=== PATIENT | female | born 1950 | race Caucasian/White ===

== ENCOUNTER → 2021-02-08 | Outpatient (CLI) | payer MEDICARE, OTHER ==
[~2021-02-08] MED LIST: GADOBUTROL 10 MMOL/10 ML (GADAVIST) VIAL IV ONE
--- NOTE | 2021-02-08 12:16 | Diagnostic Imaging Report ---
PROCEDURE: MR imaging of the brain with and without contrast. TECHNIQUE: Multiplanar, multisequence MR imaging of the brain was performed with and without contrast. INDICATION: Multiple falls and off-balance. No prior studies are available for comparison. Ventricles and sulci are appropriate for the patient's age. There are numerous periventricular and subcortical white matter foci consistent with chronic microvascular ischemia. The normal expected flow-voids within the carotid siphons are seen. There is no diffusion restriction identified to suggest acute ischemia. No acute intra-axial or extra-axial hemorrhage is detected. No abnormal enhancement is identified following contrast administration. The cerebellopontine angles are normal. No CP angle mass is identified. The corpus callosum is unremarkable. The sella and parasellar structures are unremarkable. IMPRESSION: Changes of chronic microvascular ischemia. The study is otherwise unremarkable. Dictated by: Dictated on workstation # [id number]
== END ==
LOC: RAD 11:00
PROVIDERS: ATTEND Otolaryngology Otolaryngology/Facial Plastic Surgery
DX: I67.82 Cerebral ischemia (principal); R29.6 Repeated falls
CPT/HCPCS: 70553

== ENCOUNTER 2021-02-14 11:56 | Emergency (ER) | payer MEDICARE, OTHER ==
[~2021-02-14] VITALS: Ht 170 cm; Wt 104.0 kg
[2021-02-14 12:18] LABS: BASOPHILS % (AUTO) 1 % (0-10); EOSINOPHILS # (AUTO) 0.1 10^3/uL (0.0-0.3); EOSINOPHILS % (AUTO) 1 % (0-10); HEMATOCRIT 45 % (35-52); HEMOGLOBIN 14.5 g/dL (11.5-16.0); LYMPHOCYTES # (AUTO) 2.2 10^3/uL (1.0-4.0); LYMPHOCYTES % (AUTO) 28 % (12-44); MEAN CORPUSCULAR HEMOGLOBIN 28 pg (25-34); MEAN CORPUSCULAR HGB CONC 32 g/dL (32-36); MEAN CORPUSCULAR VOLUME 88 fL (80-99); MEAN PLATELET VOLUME 9.3 fL (9.0-12.2); MONOCYTES # (AUTO) 0.6 10^3/uL (0.0-1.0); MONOCYTES % (AUTO) 8 % (0-12); NEUTROPHILS # (AUTO) 4.8 10^3/uL (1.8-7.8); NEUTROPHILS % (AUTO) 62 % (42-75); PLATELET COUNT 334 10^3/uL (130-400); WHITE BLOOD COUNT 7.8 10^3/uL (4.3-11.0)
--- NOTE | 2021-02-14 12:22 | ED Neurological Problem ---
General Stated Complaint: STROKE Source: patient Exam Limitations: no limitations (NITIN HAWKINS APRN) History of Present Illness Date Seen by Provider: Feb 14, 2021 Time Seen by Provider: 12:21 Initial Comments To ER by [facility] from home with reports of slurred speech and right- sided weakness. arrived to report that about 2 days ago on 02/12/2021 she was laying on the floor playing with her dogs when she seemed to be behaving strangely. Later that evening he noticed her speech to be slurred. She told him to leave her alone. The next day she spent most of the day sleeping on the couch. She arrives today with right-sided weakness and ongoing slurred speech. Was formerly on anticoagulants but is not any longer and cannot recall why she was on them. Timing/Duration: other (48 hours) Severity: moderate Associated Symptoms: denies symptoms (NITIN HAWKINS APRN) Allergies and Home Medications Allergies Coded Allergies: hydrocodone (Unverified Allergy, Unknown, 06/22/14) Patient Home Medication List Home Medication List Reviewed: Yes (NITIN HAWKINS APRN) Review of Systems Review of Systems Constitutional: see HPI; No chills, No fever Eyes: No Symptoms Reported Ears, Nose, Mouth, Throat: no symptoms reported Respiratory: no symptoms reported Cardiovascular: no symptoms reported Genitourinary: no symptoms reported Musculoskeletal: no symptoms reported Skin: no symptoms reported Psychiatric/Neurological: No Symptoms Reported Endocrine: No Symptoms Reported Hematologic/Lymphatic: No Symptoms Reported (NITIN HAWKINS APRN) Physical Exam Vital Signs Vital Signs - First Documented 02/14/21 11:58 Temp 36.6 Pulse 84 Resp 20 B/P (MAP) 142/91 (108) Pulse Ox 93 O2 Delivery Room Air (PARAS BOJORQUEZ MD) Vital Signs Capillary Refill : (NITIN HAWKINS APRN) Height, Weight, BMI Height: '66.00" Weight: 236lbs. oz. 107.103471fl; BMI Method: General Appearance: WD/WN, no apparent distress HEENT: PERRL/EOMI, normal ENT inspection Respiratory: no respiratory distress, no accessory muscle use Cardiovascular: regular rate, rhythm, no murmur Gastrointestinal: normal bowel sounds, non tender, soft Extremities: normal range of motion, non-tender Neurologic/Psychiatric: alert, normal mood/affect, oriented x 3 Cra[place] Nerves: normal hearing, normal speech, PERRL Coordination/Gait: ABN nose to finger (R) Motor/Sensory: pronator drift (R), sensory deficit, weak motor strength RUE, weak motor strength RLE Skin: normal color, warm/dry (NITIN HAWKINS APRN) Stroke Onset of Symptoms Date of Onset of Symptoms: Feb 12, 2021 Onset of Symptoms: Yes Symptoms onset unknown: No (NITIN HAWKINS APRN) NIH Stroke Scale Assessment Select: Initial Level of Consciousness: 0=Alert (0), Level of Consciousness- Questions: 1=Answers one question (1), LOC Commands: 0=Performs both tasks (0), Gaze: Normal (0), Visual Pardo: 0=No visual loss (0), Facial Movement (Facial Paresis): 1=Minor paralysis (1), Motor Function-Arms Right: 1=Drift (1), Motor Function-Arms Left: 0=No drift (0), Motor Function-Legs Right: 1=Drift (1), Motor Function-Legs Left: 0=No drift (0), Limb Ataxia: 2=Present in two limbs (2), Sensory: 1=Mild to Moderate loss (1), Best Language: 1=Mild to moderat aphasia (1), Dysarthria: 1=Mild to moderate loss (1), Extinction & Inattention: 0=No abnormality (0), Total: 9 Stroke Thrombolytic Exclusion Age 18 or Over: Yes Acute intenal hemorrhage: No History of CVA: No Uncontrolled Coagulation Defec: No Intracranial Hemorrhage: No Severe Hypertension: No GI or Bleed: No Subarachnoid Hemorrhage: No Intracranial Neoplasm/Aneurysm: No Oral Anticoagulants: No Surgery or Trauma: No Puncture of Non-Compressible V: No Recent CPR: No Diabetic Hemorrhagic Retinopat: No Organ Biopsy: No Recent Obstetric Delivery: No Glucose: No Significant Hepatic Dysfunctio: No NIH Stoke Scale >22: No Bacterial Endocarditis: No Pericarditis: No Improving Symptoms: No Platelets: No TPA Contraindication: Yes (NITIN HAWKINS APRN) IV - TPa Received IV - TPa Procedure Performed?: No (NITIN HAWKINS APRN) Progress/Results/Core Measures Results/Orders Lab Results Laboratory Tests Test 02/14/21 12:06 02/14/21 12:15 Range/Units White Blood Count 7.8 4.3-11.0 10^3/uL Red Blood Count 5.10 3.80-5.11 10^6/uL Hemoglobin 14.5 11.5-16.0 g/dL Hematocrit 45 35-52 % Mean Corpuscular Volume 88 80-99 fL Mean Corpuscular Hemoglobin 28 25-34 pg Mean Corpuscular Hemoglobin Concent 32 32-36 g/dL Red Cell Distribution Width 12.6 10.0-14.5 % Platelet Count 334 130-400 10^3/uL Mean Platelet Volume 9.3 9.0-12.2 fL Immature Granulocyte % (Auto) 0 % Neutrophils (%) (Auto) 62 42-75 % Lymphocytes (%) (Auto) 28 12-44 % Monocytes (%) (Auto) 8 0-12 % Eosinophils (%) (Auto) 1 0-10 % Basophils (%) (Auto) 1 0-10 % Neutrophils # (Auto) 4.8 1.8-7.8 10^3/uL Lymphocytes # (Auto) 2.2 1.0-4.0 10^3/uL Monocytes # (Auto) 0.6 0.0-1.0 10^3/uL Eosinophils # (Auto) 0.1 0.0-0.3 10^3/uL Basophils # (Auto) 0.0 0.0-0.1 10^3/uL Immature Granulocyte # (Auto) 0.0 0.0-0.1 10^3/uL Prothrombin Time 13.4 12.2-14.7 SEC INR Comment 1.0 0.8-1.4 Activated Partial Thromboplast Time 21 L 24-35 SEC D-Dimer <= 0.27 0.00-0.49 UG/ML Sodium Level 141 135-145 MMOL/L Potassium Level 4.1 3.6-5.0 MMOL/L Chloride Level 101 98-107 MMOL/L Carbon Dioxide Level 22 21-32 MMOL/L Anion Gap 18 H 5-14 MMOL/L Blood Urea Nitrogen 19 H 7-18 MG/DL Creatinine 0.72 0.60-1.30 MG/DL Estimat Glomerular Filtration Rate 81 BUN/Creatinine Ratio 26 Glucose Level 90 70-105 MG/DL Calcium Level 9.6 8.5-10.1 MG/DL Corrected Calcium 9.3 8.5-10.1 MG/DL Total Bilirubin 0.7 0.1-1.0 MG/DL Aspartate Amino Transf (AST/SGOT) 32 5-34 U/L Alanine Aminotransferase (ALT/SGPT) 26 0-55 U/L Alkaline Phosphatase 80 40-136 U/L Troponin I < 0.028 <0.028 NG/ML Total Protein 8.1 6.4-8.2 GM/DL Albumin 4.4 3.2-4.5 GM/DL Urine Color YELLOW Urine Clarity CLOUDY Urine pH 6.0 5-9 Urine Specific [place] >=1.030 1.016-1.022 Urine Protein TRACE H NEGATIVE Urine Glucose (UA) NEGATIVE NEGATIVE Urine Ketones 3+ H NEGATIVE Urine Nitrite NEGATIVE NEGATIVE Urine Bilirubin 2+ H NEGATIVE Urine Urobilinogen 1.0 < = 1.0 MG/DL Urine Leukocyte Esterase NEGATIVE NEGATIVE Urine RBC (Auto) NEGATIVE NEGATIVE Urine RBC 0 /HPF Urine WBC 2-5 /HPF Urine Squamous Epithelial Cells 5-10 /HPF Urine Crystals NONE /LPF Urine Bacteria LARGE H /HPF Urine Casts NONE /LPF Urine Mucus LARGE H /LPF Urine Culture Indicated YES (PARAS BOJORQUEZ MD) Vital Signs/I&O 02/14/21 02/14/21 11:58 16:05 Temp 36.6 Pulse 84 87 Resp 20 18 B/P (MAP) 142/91 (108) 156/94 Pulse Ox 93 99 O2 Delivery Room Air (PARAS BOJORQUEZ MD) Diagnostic Imaging Diagonstic Imaging: CT Comments NAME: COMBSMADAIJosé Manuel Georges MED REC#: [id number] PT STATUS: REG ER : 1950 PHYSICIAN: NITIN HAWKINS APRN ADMIT DATE: 02/14/21/ER Draft Date of Exam:02/14/21 CT ANGIO HEAD/NECK PROCEDURE: CT angiography of the head and CT angiography of the neck with and without contrast. TECHNIQUE: Contiguous noncontrast images were obtained from the skull base through the vertex. After intravenous contrast administration, helical CT angiography of the neck was performed. Source data was reformatted into 3D MIP projections. Delayed post contrast acquisition was also obtained. Auto Exposure Controls were utilized during the CT exam to meet ALARA standards for radiation dose reduction. INDICATION: Stroke. Right-sided neurologic deficit. COMPARISON: Noncontrast head CT performed earlier today. MRI brain without and with IV contrast 02/08/2021. FINDINGS: Postcontrast imaging again demonstrates low-attenuation changes in the left frontal lobe. No abnormal intracranial enhancement. No CT evidence of large intracranial hemorrhage or extra-axial fluid collection. No hydrocephalus. CTA demonstrates a left common carotid originating from the innominate. Calcified atherosclerotic disease results in 90-99% narrowing of the left internal carotid artery origin. There is intermittent contrast seen within the more distal internal carotid artery which near completely ceases at the level of the skull base. The left internal carotid artery appears completely occluded within the distal petrous and proximal cavernous segments. There is complete occlusion of the left M1 segment. There is incomplete reconstitution of a couple of the M2 branches via the ophthalmic artery. The basilar, bilateral vertebral, common carotid, right internal carotid, right middle cerebral, bilateral anterior cerebral and posterior cerebral arteries demonstrate no high-grade stenosis, aneurysm, or dissection. The dural venous sinuses are normally opacified. Moderate spondylotic changes in the cervical spine. No acute osseous findings. Paranasal sinuses and mastoids are unremarkable. Visualized paravertebral soft tissues demonstrate no acute findings. The lung apices are clear. IMPRESSION: 1. Large vessel occlusion of the left M1 middle cerebral artery. There is incomplete reconstitution distally of at least one of the M2 branches via the ophthalmic artery. 2. Large vessel occlusion of the left internal carotid petrous and cavernous segments. There is 90-99% narrowing of the left internal carotid artery origin to the level of the skull base. 3. Again noted are the low-attenuation changes consistent with the subacute infarct in the anterior left MCA distribution. 4. No other high-grade stenosis, aneurysm, or dissection involving the major arteries in the head and neck. Findings reported to Nitin Hawkins APRN at 2:05 p.m. on 02/14/2021. Dictated on workstation # [id number] Dict: 02/14/21 1353 Trans: 02/14/21 1413 [id number] Interpreted by: AMERICO ROY MD Electronically signed by: NAME: LAURYNIAN Georges [facility] REC#: [id number] PT STATUS: REG ER : 1950 PHYSICIAN: NITIN HAWKINS APRN ADMIT DATE: 02/14/21/ER Draft Date of Exam:02/14/21 CT HEAD WO-R/O STROKE PROCEDURE: CT head wo r/o stroke. TECHNIQUE: Multiple contiguous axial images were obtained through the brain without the use of intravenous contrast. Auto Exposure Controls were utilized during the CT exam to meet ALARA standards for radiation dose reduction. INDICATION: Weakness There is an area of decreased density in the left middle cerebral artery vascular territory involving portions of the temporal and parietal lobe including insular cortex. There is no hemorrhage. There are no extra-axial fluid collections. IMPRESSION: Subacute bland infarct left middle cerebral artery vascular territory. This appears to be new since MRI done on 02/08/2021. Results were called to Emergency Room at 1:05 PM Dictated on workstation # [id number] Dict: 02/14/21 1251 Trans: 02/14/21 1307 [facility] [id number] Interpreted by: DI BEGUM MD Electronically signed by: (NITIN HAWKINS APRN) Departure Communication (Admissions) Family Conversation [id number] with Dr. Sanford at the [facility] she would like a CT perfusion study and then plan to fly the patient to her. blood pressure is fine at 139/78 and that is without intervention here. She does not know her medication list so I called Abelardo gilbert in [facility] where she fills medications. That list includes: BuSpar 5 mg Fluoxetine 40 mg Losartan/HCTZ 100/12.5 mg Protonix 40 mg Norvasc 10 mg. EKG shows sinus rhythm no ectopy normal intervals (NITIN HAWKINS APRN) Impression Primary Impression: CVA (cerebral vascular accident) Disposition: ADMITTED INPATIENT Condition: Stable Admissions Decision to Admit Reason: Admit from ER (General) Decision to Admit/Date: Feb 14, 2021 Time/Decision to Admit Time: 13:45 (NITIN HAWKINS APRN) Departure-Patient Inst. Decision time for Depature: 13:15 (NITIN HAWKINS APRN) Referrals: ABDIAS FIGUEROA MD (Family) Primary Care Physician ATTENDING PHYSICIAN NOTE: I was physically present as attending physician in the emergency department during the care of this patient. I was involved in the initial assessment of the patient and interviewed the . He revealed at that time the symptoms actually started 2 days prior with facial droop and slurred speech, but patient refused to come to the emergency room. Stroke work-up was pursued and plan was executed as above. (PARAS BOJORQUEZ MD) Copy Copies To 1: ABDIAS FIGUEROA MD, PETER J APRN Feb 14, 2021 12:22 PARAS BOJORQUEZ MD Feb 14, 2021 22:40
[2021-02-14 12:23] LABS: ALBUMIN 4.4 GM/DL (3.2-4.5); CHLORIDE 101 MMOL/L (98-107); POTASSIUM 4.1 MMOL/L (3.6-5.0); SODIUM 141 MMOL/L (135-145)
[2021-02-14 12:23] LABS: CLARITY,URINE CLOUDY; COLOR,URINE YELLOW; GLUCOSE, URINE (UA) NEGATIVE (NEGATIVE); KETONES,URINE 3+ (NEGATIVE); LEUKOCYTE ESTERASE ,URINE NEGATIVE (NEGATIVE); NITRITE,URINE NEGATIVE (NEGATIVE); PROTEIN,URINE TRACE (NEGATIVE)
[2021-02-14 12:24] LABS: CALCIUM 9.6 MG/DL (8.5-10.1)
[2021-02-14 12:25] LABS: GLUCOSE 90 MG/DL (70-105); TOTAL PROTEIN 8.1 GM/DL (6.4-8.2)
[2021-02-14 12:26] LABS: CARBON DIOXIDE 22 MMOL/L (21-32)
[2021-02-14 12:27] LABS: BILIRUBIN,TOTAL 0.7 MG/DL (0.1-1.0)
[2021-02-14 12:29] LABS: ALKALINE PHOSPHATASE 80 U/L (40-136); CREATININE SERUM 0.72 MG/DL (0.60-1.30); FIBRIN DEGRADATION PRODUCTS <= 0.27 UG/ML (0.00-0.49); GFR ESTIMATED 81; PARTIAL THROMBOPLASTIN TIME 21 SEC (24-35); PROTHROMBIN TIME PATIENT 13.4 SEC (12.2-14.7)
[2021-02-14 12:30] LABS: BUN/CREATININE RATIO 26
[2021-02-14 12:32] LABS: ALANINE AMINOTRANSFERASE 26 U/L (0-55)
--- NOTE | 2021-02-14 12:35 | Diagnostic Imaging Report ---
INDICATION: Stroke. TIME OF EXAM: 12:27 p.m. Comparison is made with prior chest from 05/26/2014. Right hemidiaphragm is chronically elevated. There appears to be some atelectasis in the right base. Otherwise the lungs are clear. There is no effusion or pneumothorax. The heart size is normal. IMPRESSION: Right hemidiaphragmatic elevation with right basilar subsegmental atelectasis. Dictated by: Dictated on workstation # [id number]
[2021-02-14 12:51] LABS: BACTERIA,URINE LARGE /HPF; RBC,URINE 0 /HPF
[2021-02-14] MEDS ORDERED: HOLD METFORMIN - RECEIVED CONTRAST 20 ML VIAL IV SCH ×3 (13:00→15:15)
[2021-02-14] MEDS ORDERED: IOHEXOL 350 MG/ML 100 ML (OMNIPAQUE 350) VIAL IV ONE ×3 (13:00→15:15)
[2021-02-14] MEDS ORDERED: NS 100 ML (IVPB) BAG IV ONE ×3 (13:00→15:15)
--- NOTE | 2021-02-14 13:08 | Diagnostic Imaging Report ---
PROCEDURE: CT head wo r/o stroke. TECHNIQUE: Multiple contiguous axial images were obtained through the brain without the use of intravenous contrast. Auto Exposure Controls were utilized during the CT exam to meet ALARA standards for radiation dose reduction. INDICATION: Weakness There is an area of decreased density in the left middle cerebral artery vascular territory involving portions of the temporal and parietal lobe including insular cortex. There is no hemorrhage. There are no extra-axial fluid collections. IMPRESSION: Subacute bland infarct left middle cerebral artery vascular territory. This appears to be new since MRI done on 02/08/2021. Results were called to Emergency Room at 1:05 PM Dictated by: Dictated on workstation # [id number]
[2021-02-14 13:42] LABS: BILIRUBIN,URINE 2+ (NEGATIVE)
--- NOTE | 2021-02-14 14:13 | Diagnostic Imaging Report ---
PROCEDURE: CT angiography of the head and CT angiography of the neck with and without contrast. TECHNIQUE: Contiguous noncontrast images were obtained from the skull base through the vertex. After intravenous contrast administration, helical CT angiography of the neck was performed. Source data was reformatted into 3D MIP projections. Delayed post contrast acquisition was also obtained. Auto Exposure Controls were utilized during the CT exam to meet ALARA standards for radiation dose reduction. INDICATION: Stroke. Right-sided neurologic deficit. COMPARISON: Noncontrast head CT performed earlier today. MRI brain without and with IV contrast 02/08/2021. FINDINGS: Postcontrast imaging again demonstrates low-attenuation changes in the left frontal lobe. No abnormal intracranial enhancement. No CT evidence of large intracranial hemorrhage or extra-axial fluid collection. No hydrocephalus. CTA demonstrates a left common carotid originating from the innominate. Calcified atherosclerotic disease results in 90-99% narrowing of the left internal carotid artery origin. There is intermittent contrast seen within the more distal internal carotid artery which near completely ceases at the level of the skull base. The left internal carotid artery appears completely occluded within the distal petrous and proximal cavernous segments. There is complete occlusion of the left M1 segment. There is incomplete reconstitution of a couple of the M2 branches via the ophthalmic artery. The basilar, bilateral vertebral, common carotid, right internal carotid, right middle cerebral, bilateral anterior cerebral and posterior cerebral arteries demonstrate no high-grade stenosis, aneurysm, or dissection. The dural venous sinuses are normally opacified. Moderate spondylotic changes in the cervical spine. No acute osseous findings. Paranasal sinuses and mastoids are unremarkable. Visualized paravertebral soft tissues demonstrate no acute findings. The lung apices are clear. IMPRESSION: 1. Large vessel occlusion of the left M1 middle cerebral artery. There is incomplete reconstitution distally of at least one of the M2 branches via the ophthalmic artery. 2. Large vessel occlusion of the left internal carotid petrous and cavernous segments. There is 90-99% narrowing of the left internal carotid artery origin to the level of the skull base. 3. Again noted are the low-attenuation changes consistent with the subacute infarct in the anterior left MCA distribution. 4. No other high-grade stenosis, aneurysm, or dissection involving the major arteries in the head and neck. Findings reported to Ricky Hawkins APRN at 2:05 p.m. on 02/14/2021. Dictated by: Dictated on workstation # [id number]
[2021-02-14] MEDS ORDERED: LACTATED RINGERS 1,000 ML IV SCH (15:00)
--- NOTE | 2021-02-14 15:25 | Diagnostic Imaging Report ---
EXAM: CT head perfusion w/ contrast INDICATION: STROKE. COMPARISON: CT head and CTA head and neck performed earlier today. FINDINGS: Examination is limited by both marked motion and cytotoxic edema seen on the precontrast CT within the anterior left MCA distribution. There is an adequate peak arterial inflow. CT perfusion demonstrates a T-Max greater than 6 seconds measuring 52 mL within the anterior left middle cerebral artery distribution. Although the cerebral blood flow is less than 30% it is measured to be 0 mL, this is likely underestimated due to the cytotoxic edema in the region. IMPRESSION: 1. Limited examination as above. 2. A penumbra measured to be 52 mL in the left anterior middle cerebellar artery distribution is likely overestimated as above. Findings discussed with Ricky Hawkins APRN at 2:10 PM on 05/26/2021. Dictated by: Dictated on workstation # [id number]
[2021-02-14 16:05] VITALS: BP 156/94
== END 2021-02-14 16:05 | disposition other institution (70) ==
LOC: EDUNIT# 11:56 → ER 11:57
DX: I63.9 Cerebral infarction, unspecified (principal)
CPT/HCPCS: 0042T; 51702; 70450; 70496; 70498; 71045; 80053; 81000; 84484; 85025; 85379; 85610; 85730; 87077; 87088; 93005; 93041; 99285; 36415

== ENCOUNTER 2021-02-20 10:40 | Inpatient (IN) | payer MEDICARE, OTHER ==
[~2021-02-20] VITALS: Ht 167.7 cm; Wt 98.3 kg
[~2021-02-20 10:40] MED LIST changes: +ALPRAZolam 0.25 MG (XANAX) TAB PO PRN; +BISACODYL 10 MG SUPP (DULCOLAX) PR PRN; +CALCIUM CARBONATE 500 MG (TUMS) TAB.CHEW PO PRN; +DOCUSATE SODIUM 100 MG (COLACE) CAP PO PRN; +FLEET ENEMA ADULT 1 EA BTL PR PRN; -GADOBUTROL 10 MMOL/10 ML (GADAVIST) VIAL IV ONE; +LACTULOSE SYRUP 10GM/15ML (ENULOSE) 30ML UDC PO PRN; +LOPERAMIDE 2 MG (IMODIUM) TABLET PO PRN; +NALOXONE 0.4 MG/ML 1 ML (NARCAN) VIAL IV PRN; +ONDANSETRON 4 MG (ZOFRAN) ORAL DISSOLVE TAB PO PRN; +diphenhydrAMINE 25 MG TAB (BENADRYL) PO PRN; +guaiFENesin/CODEINE (ROBITUSSIN AC) 10ML UDC PO PRN
[2021-02-20 11:03] VITALS: BP 178/75
--- NOTE | 2021-02-20 11:06 | PM&R Post Admission Assessment ---
PM&R HP Date of Visit: Feb 20, 2021 Time of Visit: 11:15 History of Present Illness CC: CVA HPI: This is a 70yoWF clinic Pt of Dr. 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 She lives with her spouse and it is hard to get details due to the aphasia. CC: Rehabilitation post L MCA Stroke HPI: 70yo F with PMH of Afib and HTN presents post L MCA stroke for rehabilitation to [facility] where she was reportedly independent with ADLs and functionally mobile without an AD. Symptoms began on 02/12/21 when pt developed slurred speech and then on 02/14 her right arm/leg started to drift. Taken to [facility], Head CT showed subacute stroke. NIHSS 9, No tPA. CTA showed left M1 LVO and L ICA occlusion. Repeat CTA in 3 months to recheck ICA flow and stenosis. IR contraindicated due to anatomy. Then transfered to [facility], ECHO revealed 75% EF, no major shunting, normal LA size. Pt was given SHANK PAPERER amlodipine and Losartan, while holding all other SHANK PAPERER anti-hypertensives. Permissive HTN 110-160 systolic. AUTOMATIC BEAM WARPER TENDER video swallowed on 02/19 revealed oropharyngeal dysphagia and needs possible GI consult for esophageal dysphagia. Pt was placed on regular diet with nectar thick liquids and may need IV fluids if unable to PO. Pt was sent to [facility], for intensive PT/OT/AUTOMATIC BEAM WARPER TENDER, nutritional support, and continued physician monitoring until it's deemed safe to return home. 02/20, pt seemed noncompliant with history taking possibly due to aphasia. Denied fever, vomiting, diarrhea, or chest pain. On exam, right facial droop with profound right sided muscle weakness and decreased sensation. Will begin recovery process with PT/OT/AUTOMATIC BEAM WARPER TENDER and monitor progress/labs over the course of rehab. PMH: Afib, HTN PSH: None Allergy: Clindamycin Hcl, Codeine Sulfate, Hydrocodone Meds: Pantoprazole Sodium 40 Mg Tablet.dr 40 Mg PO BID Buspirone HCl 5 Mg Tablet 5 Mg PO BID Tylenol (Acetaminophen) 325 Mg Tablet 650 Mg PO Q4H PRN Clopidogrel (Clopidogrel Bisulfate) 75 Mg Tablet 75 Mg PO DAILY Sertraline HCl 100 Mg Tablet 100 Mg PO DAILY Senna-S Tablet (Sennosides/Docusate Sodium) 1 Each Tablet 1 Each PO BID Atorvastatin Calcium 80 Mg Tablet 80 Mg PO DAILY Aspirin 81 Mg Tab.chew 81 Mg PO DAILY TAKE WITH FOOD SH: Denies Alcohol and Tobacco Retired from working at a [employer] company with her in [place], [place] FH: Mom (None); Dad (None) ROS: Constitutional: No chills, No dizziness, No fever; other (Pt seemed noncompliant with questions) EENTM: other (Pt seemed noncompliant with questions); No ear pain, No blurred vision Respiratory: No cough, No hemoptysis, No short of breath, No wheezing; other (Pt seemed noncompliant with questions) Cardiovascular: No chest pain, No edema, No palpitations; other (Pt seemed noncompliant with questions) Gastrointestinal: No abdominal pain, No constipation, No diarrhea, No loss of appetite, No nausea, No vomiting; other (Pt seemed noncompliant with questions) Genitourinary: No dysuria, No frequency, No incontinence; other (Pt seemed noncompliant with questions) Musculoskeletal: No back pain, No muscle pain, No neck pain; other (Pt seemed noncompliant with questions) Skin: No change in color, No lesions, No rash; other (Pt seemed noncompliant with questions) Psychiatric/Neurological: Denies Headache, Denies Numbness, Denies Tingling; Other (Pt seemed noncompliant with questions) Exam: General Appearance: No Apparent Distress, Obese Eyes: Right Eye Abnormal EOM; Bilateral Eye Normal Inspection, Bilateral Eye EOMI HEENT: PERRL/EOMI, Pharynx Normal; No Photophobia, No Scleral Icterus (L), No Scleral Icterus (R) Neck: Normal Inspection, Non Tender, Supple; No Thyromegaly Respiratory: Chest Non Tender, Lungs Clear, Normal Breath Sounds Cardiovascular: Regular Rate, Rhythm, No Edema, Normal Peripheral Pulses Gastrointestinal: Normal Bowel Sounds, Non Tender, Soft; No Guarding Extremity: Normal Inspection; No Normal Range of Motion; Non Tender, No Calf Tenderness, No Pedal Edema Neurologic/Psychiatric: Alert, Oriented x3, Abnormal rail crew member II-XII (Tongue Deviates to Right (Hypoglossal CNXII)), Aphasia, Facial Droop (R Sided), Motor Weakness (R Sided), Sensory Deficit Skin: Warm/Dry, Cyanosis (L UE); No Erythema, No Rash Labs/Imaging: Vital Signs 02/20/21 11:03 Temp 37.2 Pulse 91 Resp 18 B/P (MAP) 178/75 (109) Pulse Ox 96 O2 Delivery Room Air Assessment: S/P L MCA Stroke Right Hemiparesis Dysarthria Expressive Aphasia Oropharyngeal Dysphagia Hyperlipidemia HTN Emotionally Labile Plan: PT/OT IV/PO Fluids PRN Speech Therapy/AUTOMATIC BEAM WARPER TENDER Advice Line Rn Nutritional Services (regular diet with thick nectar liquid) Continued Atorvastatin for HLD CBC/CMP Coag Studies CARRIE STERLING Feb 20, 2021 11:23 Past Puvmyod-Cwoyzm-Opyxrj Hx Past Med/Social Hx: Reviewed Nursing Past Med/Soc Hx, Reviewed and Corrections made Patient Social History Marrital Status: Employed/Student: retired Alcohol Use: Denies Use Smoking Status: Never a Smoker Past Medical History Cardiac: Atrial Fibrillation, High Cholesterol, Hypertension Neurological: Stroke PM&R Allergy/Meds/Data Review Allergies Coded Allergies: hydrocodone (Unverified Allergy, Unknown, 06/22/14) Home Medications Scheduled Aspirin (Aspirin), 81 MG PO DAILY, (Reported) Atorvastatin Calcium (Atorvastatin Calcium), 80 MG PO DAILY, (Reported) Buspirone HCl (Buspirone HCl), 5 MG PO BID, (Reported) Clopidogrel Bisulfate (Clopidogrel), 75 MG PO DAILY, (Reported) Pantoprazole Sodium (Pantoprazole Sodium), 40 MG PO BID, (Reported) Sennosides/Docusate Sodium (Senna-S Tablet), 1 EACH PO BID, (Reported) Sertraline HCl (Sertraline HCl), 100 MG PO DAILY, (Reported) Scheduled PRN Acetaminophen (Tylenol), 650 MG PO Q4H PRN for PAIN-MILD (1-4), (Reported) Current Medications Current Medications Reviewed Review of Systems Constitutional: see HPI, malaise, weakness EENTM: no symptoms reported Respiratory: no symptoms reported Cardiovascular: no symptoms reported Gastrointestinal: constipation Genitourinary: no symptoms reported Musculoskeletal: back pain, joint pain Skin: no symptoms reported Psychiatric/Neurological: Depressed, Paresthesia, Weakness All Other Systems Reviewed Negative Unless Noted: Yes Physical Exam Physical Exam Vital Signs Vital Signs - First Documented 02/20/21 11:03 Temp 37.2 Pulse 91 Resp 18 B/P (MAP) 178/75 (109) Pulse Ox 96 O2 Delivery Room Air Capillary Refill : Height, Weight, BMI Height: '66.00" Weight: 236lbs. oz. 107.808368jd; 35.00 BMI Method: General Appearance: No Apparent Distress, WD/WN, Chronically ill, Obese Eyes: Bilateral Eye Normal Inspection, Bilateral Eye PERRL HEENT: PERRL/EOMI, Normal ENT Inspection, Pharynx Normal Neck: Full Range of Motion, Normal Inspection, Non Tender, Supple, Carotid Bruit Respiratory: Chest Non Tender, Lungs Clear, Normal Breath Sounds, No Accessory Muscle Use, No Respiratory Distress Cardiovascular: Regular Rate, Rhythm, No Edema, No Gallop, No JVD, No Murmur, Normal Peripheral Pulses Gastrointestinal: Normal Bowel Sounds, No Organomegaly, No Pulsatile Mass, Non Tender, Soft Back: Normal Inspection, No CVA Tenderness, No Vertebral Tenderness Extremity: Normal Capillary Refill, Normal Inspection, Normal Range of Motion, Non Tender, No Calf Tenderness, No Pedal Edema Neurologic/Psychiatric: Alert, Oriented x3, Abnormal Gait, Depressed Affect, Facial Droop (Right), Motor Weakness (Right-sided weakness 1/5) Skin: Normal Color, Warm/Dry Lymphatic: No Adenopathy PM&R Medical Assessment & Plan REHAB/MEDICAL ASSESSMENT AND PLAN: REHAB IMPAIRMENT GROUP: CVA with right-sided weakness ETIOLOGIC DIAGNOSIS: CVA with right-sided weakness The comorbidities that impact the patients function and/or functional outcome by: Atrial fibrillation, hypertension, severe right-sided hemiparesis, dysarthria, expressive aphasia REHAB PLAN: The patient is being admitted to our comprehensive inpatient rehabilitation facility and can tolerate the intensity of service consisting of at least: 180 minutes of therapy a day, 5 out of 7 days a week Rehab treatment will consist of: PT and OT will focus on right sided weakness and improve ambulatory skills and independence in ADLs with assistive devices in order to return back to independent living The patient/family has a good understanding of our discharge process and will benefit from an interdisciplinary inpatient rehabilitation program. The patient has potential to make improvement and is in need of at least two of the following multidisciplinary therapies including but not limited to physical, occupational, speech, and prosthetics and orthotics. Additionally the patient will need services from respiratory, nutritional services, wound care, psycholo gy, etc. (Customize this to each patient). Given the patients complex condition and risk of further medical complications, rehabilitation services cannot be safely or effectively provided at a lower level of care such as a penitentiary facility. BARRIERS TO DISCHARGE: Right-sided weakness with expressive aphasia ESTIMATED LOS: 20 days DISPOSITION: Home with spouse RELEVANT CHANGES SINCE PREADMISSION SCREENING: I have compared the patients medical and functional status at the time of the preadmission screening and there are: No changes PROGNOSIS: Fair REHABILITATION GOALS: 1. PT and OT will focus on right sided weakness and improve ambulatory skills and independence in ADLs with assistive devices in order to return back to independent living All the above goals were reviewed with the patient and he/she is in agreement. By signing this document, I acknowledge that I have personally performed a full physical examination on this patient within 24 hours of admission to this inpatient rehabilitation facility and have determined the patient to be able to tolerate the above course of treatment at an intensive level for a reasonable period of time. I will be completing a detailed individualized Plan of Care for this patient by day #4 of the patients stay based upon the Preadmission Screen, the Post-Admission Evaluation, and the therapy evaluations. Admission Dx/Comorbidities: (1) CVA (cerebral vascular accident) Status: Acute ICD Codes: I63.9 - Cerebral infarction, unspecified (2) Atrial fibrillation ICD Codes: I48.91 - Unspecified atrial fibrillation (3) Hypertension ICD Codes: I10 - Essential (primary) hypertension (4) Obesity ICD Codes: E66.9 - Obesity, unspecified (5) Chronic anticoagulation ICD Codes: Z79.01 - terminal block assembler (current) use of anticoagulants (6) Expressive aphasia ICD Codes: R47.01 - Aphasia (7) Dysarthria ICD Codes: R47.1 - Dysarthria and anarthria (8) Right sided weakness ICD Codes: R53.1 - Weakness Assessment/Plan Assessment and Plan Assess & Plan/Chief Complaint Assessment: CVA with right-sided weakness Expressive aphasia Dysarthria Hypertension Chronic atrial fibrillation Oral anticoagulants maintained Obesity Plan: Continue current active meds Speech therapy PT and OT Aggressive therapy SEAN MARTINS DO Feb 20, 2021 11:06
--- NOTE | 2021-02-20 11:23 | Progress Note ---
CARRIE STERLING 02/20/21 1123: Progress Note CC: Rehabilitation post L MCA Stroke HPI: 70yo F with PMH of Afib and HTN presents post L MCA stroke for rehabilitation to [facility] where she was reportedly independent with ADLs and functionally mobile without an AD. Symptoms began on 02/12/21 when pt developed slurred speech and then on 02/14 her right arm/leg started to drift. Taken to OSH, Head CT showed subacute stroke. NIHSS 9, No tPA. CTA showed left M1 LVO and L ICA occlusion. Repeat CTA in 3 months to recheck ICA flow and stenosis. IR contraindicated due to anatomy. Then transfered to [facility], ECHO revealed 75% EF, no major shunting, normal LA size. Pt was given ROUTER OPERATOR RADIAL amlodipine and Losartan, while holding all other ROUTER OPERATOR RADIAL anti-hypertensives. Permissive HTN 110-160 systolic. INFANTRY INDIRECT FIRE CREWMEMBER video swallowed on 02/19 revealed oropharyngeal dysphagia and needs possible GI consult for esophageal dysphagia. Pt was placed on regular diet with nectar thick liquids and may need IV fluids if unable to PO. Pt was sent to [facility], for intensive PT/OT/INFANTRY INDIRECT FIRE CREWMEMBER, nutritional support, and continued physician monitoring until it's deemed safe to return home. 02/20, pt seemed noncompliant with history taking possibly due to aphasia. Denied fever, vomiting, diarrhea, or chest pain. On exam, right facial droop with profound right sided muscle weakness and decreased sensation. Will begin recovery process with PT/OT/INFANTRY INDIRECT FIRE CREWMEMBER and monitor progress/labs over the course of rehab. PMH: Afib, HTN PSH: None Allergy: Clindamycin Hcl, Codeine Sulfate, Hydrocodone Meds: Pantoprazole Sodium 40 Mg Tablet. 40 Mg PO BID Buspirone HCl 5 Mg Tablet 5 Mg PO BID Tylenol (Acetaminophen) 325 Mg Tablet 650 Mg PO Q4H PRN Clopidogrel (Clopidogrel Bisulfate) 75 Mg Tablet 75 Mg PO DAILY Sertraline HCl 100 Mg Tablet 100 Mg PO DAILY Senna-S Tablet (Sennosides/Docusate Sodium) 1 Each Tablet 1 Each PO BID Atorvastatin Calcium 80 Mg Tablet 80 Mg PO DAILY Aspirin 81 Mg Tab.chew 81 Mg PO DAILY TAKE WITH FOOD SH: Denies Alcohol and Tobacco Retired from working at a [employer] company with her in [place], [place] FH: Mom (None); Dad (None) ROS: Constitutional: No chills, No dizziness, No fever; other (Pt seemed noncompliant with questions) EENTM: other (Pt seemed noncompliant with questions); No ear pain, No blurred vision Respiratory: No cough, No hemoptysis, No short of breath, No wheezing; other (Pt seemed noncompliant with questions) Cardiovascular: No chest pain, No edema, No palpitations; other (Pt seemed noncompliant with questions) Gastrointestinal: No abdominal pain, No constipation, No diarrhea, No loss of appetite, No nausea, No vomiting; other (Pt seemed noncompliant with questions) Genitourinary: No dysuria, No frequency, No incontinence; other (Pt seemed noncompliant with questions) Musculoskeletal: No back pain, No muscle pain, No neck pain; other (Pt seemed noncompliant with questions) Skin: No change in color, No lesions, No rash; other (Pt seemed noncompliant with questions) Psychiatric/Neurological: Denies Headache, Denies Numbness, Denies Tingling; Other (Pt seemed noncompliant with questions) Exam: General Appearance: No Apparent Distress, Obese Eyes: Right Eye Abnormal EOM; Bilateral Eye Normal Inspection, Bilateral Eye EOMI HEENT: PERRL/EOMI, Pharynx Normal; No Photophobia, No Scleral Icterus (L), No Scleral Icterus (R) Neck: Normal Inspection, Non Tender, Supple; No Thyromegaly Respiratory: Chest Non Tender, Lungs Clear, Normal Breath Sounds Cardiovascular: Regular Rate, Rhythm, No Edema, Normal Peripheral Pulses Gastrointestinal: Normal Bowel Sounds, Non Tender, Soft; No Guarding Extremity: Normal Inspection; No Normal Range of Motion; Non Tender, No Calf Tenderness, No Pedal Edema Neurologic/Psychiatric: Alert, Oriented x3, Abnormal store keeper II-XII (Tongue Devia jenna to Right (Hypoglossal CNXII)), Aphasia, Facial Droop (R Sided), Motor Weakness (R Sided), Sensory Deficit Skin: Warm/Dry, Cyanosis (L UE); No Erythema, No Rash Labs/Imaging: Vital Signs 02/20/21 11:03 Temp 37.2 Pulse 91 Resp 18 B/P (MAP) 178/75 (109) Pulse Ox 96 O2 Delivery Room Air Assessment: S/P L MCA Stroke Right Hemiparesis Dysarthria Expressive Aphasia Oropharyngeal Dysphagia Hyperlipidemia HTN Emotionally Labile Plan: PT/OT IV/PO Fluids PRN Speech Therapy/INFANTRY INDIRECT FIRE CREWMEMBER Camera Assembler Nutritional Services (regular diet with thick nectar liquid) Continued Atorvastatin for HLD CBC/CMP Coag Studies HEENA MARTINS DO 02/21/21 0601: Supervisory-Addendum Brief Verification & Attestation Participated in pt care: history, MDM, physical Personally performed: exam, history, MDM, supervision of care Care discussed with: Medical Student Procedures: n/a Results interpretation: Verified all documentation Verification and Attestation of Medical Student E/M Service A medical student performed and documented this service in my presence. I rev iewed and verified all information documented by the medical student and made modifications to such information, when appropriate. I personally performed the physical exam and medical decision making. Heena Martins, Feb 21, 2021,06:01 CARRIE STERLING Feb 20, 2021 11:23 HEENA MARTINS DO Feb 21, 2021 06:01
--- NOTE | 2021-02-20 11:24 | Occupational Therapy Eval ---
OT Evaluation-General/PLF Medical Diagnosis Admission Date Feb 20, 2021 at 10:40 Medical Diagnosis: CVA Onset Date: Feb 14, 2021 Therapy Diagnosis Therapy Diagnosis: decreased ADL status, decreased RUE function Height/Weight Height (Inches): 66.00 Weight (Pounds): 236 Referral Physician: Payton Jose Reason: Evaluation/Treatment Medical History Pertinent Medical History: Atrial Fib, HTN Current History 02/14/21 R arm/leg drift and slurred speech. HCT showed subacute stroke Social History Current Living Status: Spouse ADL-Prior Level of Function SCALE: Activities may be completed with or without assistive devices. 3-Ggvmozodyt-zgjayvy completes the activity by him/herself with no assistance from a helper. 5-Set-up or Clean-up Assistance-helper sets up or cleans up; patient completes activity. [place] assists only prior to or following the activity. 4-Supervision or Touching Assistance-helper provides verbal cues and/or touching/steadying and/or contact guard assistance as patient completes activity. Assistance may be provided throughout the activity or intermittently. 3-Partial/Moderate Assistance-helper does LESS THAN HALF the effort. [place] lifts, holds or supports trunk or limbs, but provides less than half the effort. 2-Substantial/Maximal Assistance-helper does MORE THAN HALF the effort. [place] lifts or holds trunk or limbs and provides more than half the effort. 9-Hjelwlstk-vxdyon does ALL the effort. Patient does none of the effort to complete the activity. Or, the assistance of 2 or more helpers is required for the patient to complete the activity. If activity was not attempted, code reason: 7-Patient Refused. 9-Not Applicable-not attempted and the patient did not perform the activity before the current illness, exacerbation or injury. 10-Not Attempted due to Environmental Limitations-(lack of equipment, weather restraints, etc.). 88-Not Attempted due to Medical Conditions or Safety Concerns. ADL PLOF Comments Pt unable to provide much information about PLOF/home set up due to aphasia. Able to answer some simple yes/no questions. Pt indicates she lives with her , at PLOF she was independent with ADLs and functional mobility without AD. Self Care: Independent Functional Cognition: Independent OT Current Status Subjective Pt laying in bed, agreeable to OT evaluation Mental Status/Objective Patient Orientation: Person, Situation aphasia Current Glasses/Contacts: Yes Hand Dominance: Left Upper Extremity ROM LUE WFL. RUE decreased overall. Pt has some movement at shoulder (flexion & extension) and elbow (flexion & extension), no active movement at wrist/fingers. R shoulder flexion to approx 90 degrees Upper Extremity Coordination decreased RUE Upper Extremity Sensation Decreased RUE Upper Extremity Strength LUE grossly 3+/5, RUE grossly 2/5 ADL-Treatment Eating (QC): 7 Oral Hygiene (QC): 7 Shower/Bathe Self (QC): 7 Upper Body Dressing (QC): 7 Lower Body Dressing (QC): 7 On/Off Footwear (QC): 7 Toileting Hygiene (QC): 7 Other Treatments Pt laying in bed, agreeable to OT evaluation. OT educated pt on purpose and benefit of OT. Pt then provided information about PLOF and home set up to her ability, pt had some difficulty communicating with therapist due to aphasia. Pt able to answer some simple yes/no questions. Pt then participated in UE screen. all needs met with pt, ANNE present to continue tx. Education OT Patient Education: Correct positioning, Modified ADL techniques, Progress toward Goal/Update tx plan, Purpose of tx/functional activities, Rehab process Teaching Recipient: Patient Teaching Methods: Discussion OT Short Term Goals Short Term Goals Time Frame: Mar 06, 2021 Toileting hygiene: 3 Shower/bathe self: 3 Upper body dressin Lower body dressin OT Custodial Goals Custodial Goals Time Frame: Mar 23, 2021 Eating (QC): 5 Oral Hygiene (QC): 5 Toileting Hygiene (QC): 4 Shower/Bathe Self (QC): 4 Upper Body Dressing (QC): 5 Lower Body Dressing (QC): 4 On/Off Footwear (QC): 4 Additional Goals: 1-Demonstrate ADL Tasks, 2-Verbalize Understanding, 3- ImproveStrength/Kourtney 1=Demonstrate adherence to instructed precautions during ADL tasks. 2=Patient will verbalize/demonstrate understanding of assistive devices/modifications for ADL. 3=Patient will improve strength/tolerance for activity to enable patient to perform ADL's. OT Education/Plan Problem List/Assessment Assessment: Decreased Activ Tolerance, Decreased UE Strength, Impaired Bed Mobility, Impaired Coordination, Impaired Funct Balance, Impaired I ADL's, Impaired Self-Care Skills, Restricted Funct UE ROM Discharge Recommendations Plan/Recommendations: Continue POC Equpiment Recommendations-D/C: Extended Bath Bench Treatment Plan/Plan of Care Patient would benefit from OT for education, treatment and training to promote independence in ADL's, mobility, safety and/or upper extremity function for ADL's. Plan of Care: ADL Retraining, Functional Mobility, Group Exercise/Act as Ind, UE Funct Exercise/Act, UE Neuromus Re-Ed/Coord Treatment Duration: Mar 23, 2021 Frequency: At least 5 of 7 days/Wk (IRF) Estimated Hrs Per Day: 1.5 hours per day Rehab Potential: Fair Time/GCodes Start Time: 10:45 Stop Time: 10:55 Total Time Billed (hr/min): 10 Billed Treatment Time 1, FOZIA ADAMSON OT Feb 20, 2021 11:24
[2021-02-20] MEDS ORDERED: FLUO40CA PO (11:57)
[2021-02-20] MEDS ORDERED: SENN-109 PO (11:57)
[2021-02-20] MEDS ORDERED: ACET325T38 PO (11:57)
[2021-02-20] MEDS ORDERED: CLOP75TA28 PO (11:57)
[2021-02-20] MEDS ORDERED: SERT-414 PO (11:57)
[2021-02-20] MEDS ORDERED: PANT40TA52 PO (11:57)
[2021-02-20] MEDS ORDERED: BUSP5TAB59 PO (11:57)
[2021-02-20] MEDS ORDERED: ASPI-999 PO (11:57)
[2021-02-20] MEDS ORDERED: ATOR80TA76 PO (11:57)
--- NOTE | 2021-02-20 11:58 | Occupational Ther Daily Note ---
OT Current Status-Daily Note Subjective Took over pt. care from OTR/L. Pt aphasiac, able to answer yes/no questions with more accuracy. Pt agrees to therapy. Does not show signs of pain. Mental Status/Objective Patient Orientation: Person, Place, Non-Verbal/Aphasic, Time, Situation ADL-Treatment Pt agrees to bed bath. Max A to complete bed bath. Pt able to wash face and chest with L UE after set up, assist to complete all other areas. Pt able to roll toward R side independently using bed rail and remain on side while cleansing back, buttocks and donning brief. Min A to roll toward L side then is able to remain on side while donning brief. Pt incontinent of bladder, dependent for toileting. Pt was set up for oral care though did not rinse and spit, requiring supervision for safety. Pt dependent for lower body dressing. Per clinical judgment pt is max A for footwear and upper body dressing. Pt does not have regular clothing at this time. Therapy Code Descriptions/Definitions Functional [place] Measure: 0=Not Assessed/NA 4=Minimal Assistance 1=Total Assistance 5=Supervision or Setup 2=Maximal Assistance 6=Modified [place] 3=Moderate Assistance 7=Complete IndependenceSCALE: Activities may be completed with or without assistive devices. 3-Zjbqdikyil-lwlvkip completes the activity by him/herself with no assistance from a helper. 5-Set-up or Clean-up Assistance-helper sets up or cleans up; patient completes activity. [place] assists only prior to or following the activity. 4-Supervision or Touching Assistance-helper provides verbal cues and/or touching/steadying and/or contact guard assistance as patient completes activity. Assistance may be provided throughout the activity or intermittently. 3-Partial/Moderate Assistance-helper does LESS THAN HALF the effort. [place] lifts, holds or supports trunk or limbs, but provides less than half the effort. 2-Substantial/Maximal Assistance-helper does MORE THAN HALF the effort. [place] lifts or holds trunk or limbs and provides more than half the effort. 9-Vlvnorbtb-uiyxhp does ALL the effort. Patient does none of the effort to complete the activity. Or, the assistance of 2 or more helpers is required for the patient to complete the activity. If activity was not attempted, code reason: 7-Patient Refused. 9-Not Applicable-not attempted and the patient did not perform the activity before the current illness, exacerbation or injury. 10-Not Attempted due to Environmental Limitations-(lack of equipment, weather restraints, etc.). 88-Not Attempted due to Medical Conditions or Safety Concerns. Eating (QC): 4 (Per clinical judgment, pt able to use utensils to eat though requires set up and supervision for safety due to swallowing issues.) Oral Hygiene (QC): 4 Shower/Bathe Self (QC): 2 Upper Body Dressing (QC): 2 Lower Body Dressing (QC): 1 (Max A if completing in supine. Dependent if h iking pants in standing would need assist x2.) On/Off Footwear: 2 Toileting Hygiene (QC): 1 Toilet Transfer (QC): 1 Other Treatment Pt demonstrated spontaneous gross motor movement of R shldr, elbow and forearm. Pt able to complete shldr elevation when instructed to complete. 5 shldr elevations before fatigue then pt was still able to actively fire muscle though limited ROM. AAROM with full R shldr flexion. Max A for supine <--> sitting EOB then after positioned correctly pt was CGA to sit EOB for ~3 min before dizziness and fatigue. Pt was able to sit supported with B UE in wt bearing position. After therapy, pt lying in bed with call light/phone in reach. All needs met in room. OT Short Term Goals Short Term Goals Time Frame: Mar 06, 2021 Toileting hygiene: 3 Shower/bathe self: 3 Upper body dressin Lower body dressin OT [facility] Goals Revenue Accountant Goals Time Frame: Mar 23, 2021 Eating (QC): 5 Oral Hygiene (QC): 5 Toileting Hygiene (QC): 4 Shower/Bathe Self (QC): 4 Upper Body Dressing (QC): 5 Lower Body Dressing (QC): 4 On/Off Footwear (QC): 4 Additional Goals: 1-Demonstrate ADL Tasks, 2-Verbalize Understanding, 3- ImproveStrength/Kourtney 1=Demonstrate adherence to instructed precautions during ADL tasks. 2=Patient will verbalize/demonstrate understanding of assistive devices/modifications for ADL. 3=Patient will improve strength/tolerance for activity to enable patient to perform ADL's. OT Education/Plan Problem List/Assessment Assessment: Decreased Activ Tolerance, Decreased Safety Aware, Decreased UE Strength, Dependent Transfers, Impaired Bed Mobility, Impaired Cognition, Impaired Coordination, Impaired Funct Balance, Impaired I ADL's, Impaired Self- Care Skills, Restricted Funct UE ROM Discharge Recommendations Plan/Recommendations: Continue POC Treatment Plan/Plan of Care Patient would benefit from OT for education, treatment and training to promote independence in ADL's, mobility, safety and/or upper extremity function for ADL's. Plan of Care: ADL Retraining, Functional Mobility, Group Exercise/Act as Ind, UE Funct Exercise/Act, UE Neuromus Re-Ed/Coord Treatment Duration: Mar 23, 2021 Frequency: At least 5 of 7 days/Wk (IRF) Estimated Hrs Per Day: 1.5 hours per day Rehab Potential: Fair Time/GCodes Start Time: 10:55 Stop Time: 12:00 Total Time Billed (hr/min): 65 Billed Treatment Time 1 visit-ADL 2 (30 min) NM 2 (35 min) IAN RAMIREZ Feb 20, 2021 11:58
--- NOTE | 2021-02-20 13:30 | ST Cognitive Linguistic Eval ---
Speech Evaluation-General Medical Diagnosis CVA Onset Date: Feb 14, 2021 Therapy Diagnosis Therapy Diagnosis: Aphasia, Dysphagia, Dysarthria Referral Referring Physician: Dr. Cain Medical History Pertinent Medical History: Atrial Fib, HTN Reviewed History: Yes Social History Current Living Status: Spouse Speech PLF-Current Status Prior Level of Function Patient lived at home with her where she was independent with her daily needs. Subjective Patient was pleasant and cooperative with the dysphagia, cognitive and speech assessments. Language Eval: Auditory Comprehends Simple Yes/No Ques: Functional Indent/Objects Multiple Pardo: Functional Ident/Pics in Multiple Pardo: Functional Follows 1-Step Commands: Functional Follows Complex Directions: Functional Follows General Conversations: Functional Language Eval: Verbal Language Completes Spontaneous Greeting: Functional Produces Auto, Serial Info: Moderate Imitates Simple Words/Phrases: Moderate Word Finding: Moderate Requests Basic Needs: Moderate States Basic Personal Info: Moderate Expresses Complex Ideas: Moderate Objective Cognitive Domain Attention: WNL Problem Solving: Mild Executive Functions: Mild Visuospatial Skills: WNL Composite Severity Rating: Moderate Objective Formal/Standardized Tests Subtests of the SLUMS, speech tasks, OM exam, BDE Results Patient's cognitive function appears to be in tact, however due to mod to severed aphasia it is difficult to assess fully. The patient's OM is slightly droopy on the facial right side. Patient is currently on regular diet level with thickened liquids. Patient is able to produce a few words, however she primarily communicates with y/n or head nods. Oral Motor/Speech Production Speech production is intelligible for the few words she is able to say Impression Patient is a pleasant 70 y/o female who was admitted to the ARU s/p CVA with right sided weakness. The patient communicates primarily with y/n and head nods. She is able to say a few meaningful words. Patient was diagnosed with dysphagia upon arrival and is currently on a regular diet level with nectar consistency liquids. She is noted to have a mild right side facial droop, however does not appear to interfere with speech intelligibility. The patient will receive skilled ST with focus on expressive language and ongoing diet assessment for the least restrictive diet level. Speech Patient Assess Expression of Ideas/Wants: Frequently (2) Understanding Verbal Content: Understands (4) Brief Interview-Mental Status: Yes Repetition of Three Words: None (0) Temporal Orientation: Year: No answer (0) Temporal Orientation: Month: No answer (0) Temporal Orientation: Day: Incorrect or No Answer(0) Recall : Wear to say "Sock": No, could not recall (0) Recall : Color: No, could not recall (0) Recall : Bed: No, could not recall (0) Memory/Recall Ability: That he or she is in a hsp/hsp unit Speech Short Term Goals Short Term Goals Short Term Goals 1) Patient will complete expressive language tasks of simple one word or simple phrase responses at 75% with minimal cues. 2) Patient will complete confrontational naming tasks of common everyday objects/pictures with 75% with minimal cues. 3) Patient will tolerate least restrictive diet level without s/s of aspiration at 90% or greater. 4) Patient will complete OME to improve oral intake and speech production with 90% or greater with minimal cues. Speech Mechanical Engineering Specialist Goals Senior Care Goals Patient will improve functional communication with verbal expression of wants/needs. Patient will maintain adequate nutrition/hydration via safe effective swallow f unction. Speech-Plan Patient/Family Goals Patient/Family Goals: Patient plans on returning to her home where she lives with her . Treatment Plan Speech Therapy Treatment Plan: Continue Plan of Care Treatment Duration: Mar 06, 2021 Frequency: 4 times per week (Patient will receive skilled ST 4-5x per week) Estimated Hrs Per Day: .5 hour per day Rehab Potential: Fair Barriers to Learning: Patient's recent CVA, expressive aphasia Pt/Family Agrees to Plan: Yes Safety Risks/Education Teaching Recipient: Patient Teaching Methods: Discussion Response to Teaching: Verbalize Understanding Education Topics Provided: Safety within her room, communication of wants/needs Time Speech Therapy Time In: 12:30 Speech Therapy Time Out: 13:00 Total Billed Time: 30 Billed Treatment Time 1, SPSNDCOMP, SLTS, DYSEVS, DYST No HEENA NAJERA Feb 20, 2021 13:30
--- NOTE | 2021-02-20 15:12 | Physical Therapy Evaluation ---
PT Evaluation-General Medical Diagnosis Admission Date Feb 20, 2021 at 10:40 Medical Diagnosis: CVA Onset Date: Feb 14, 2021 Therapy Diagnosis Therapy Diagnosis: Gait deficit, strength deficiy Height/Weight Height (Inches): 66.00 Weight (Pounds): 236 Precautions Precautions/Isolations: Aspiration, Fall Prevention, Standard Precautions Referral Physician: Payton Reason for Referral: Evaluation/Treatment Medical History Pertinent Medical History: Atrial Fib, HTN Reviewed History: Yes Social History Home: Single Level Current Living Status: Spouse Entry Into Home: Stairs With Railing PT Steps Into Home: 4 Prior Prior Level of Function SCALE: Activities may be completed with or without assistive devices. 7-Izurjgbbze-ultkabz completes the activity by him/herself with no assistance from a helper. 5-Set-up or Clean-up Assistance-helper sets up or cleans up; patient completes activity. [place] assists only prior to or following the activity. 4-Supervision or Touching Assistance-helper provides verbal cues and/or touching/steadying and/or contact guard assistance as patient completes activity. Assistance may be provided throughout the activity or intermittently. 3-Partial/Moderate Assistance-helper does LESS THAN HALF the effort. [place] lifts, holds or supports trunk or limbs, but provides less than half the effort. 2-Substantial/Maximal Assistance-helper does MORE THAN HALF the effort. [place] lifts or holds trunk or limbs and provides more than half the effort. 7-Mcqwxolvh-pqlstl does ALL the effort. Patient does none of the effort to complete the activity. Or, the assistance of 2 or more helpers is required for the patient to complete the activity. If activity was not attempted, code reason: 7-Patient Refused. 9-Not Applicable-not attempted and the patient did not perform the activity before the current illness, exacerbation or injury. 10-Not Attempted due to Environmental Limitations-(lack of equipment, weather restraints, etc.). 88-Not Attempted due to Medical Conditions or Safety Concerns. Bed Mobility: 6 Transfers (B,C,W/C): 6 Gait: 6 Stairs: 6 Wheelchair Mobility: 6 Indoor Mobility (Ambulation): Independent Stairs: Independent Prior Devices Use: None PT Evaluation-Current Subjective Patient presents with expressive aphasia and is able to speak some words, but is unable to verbalize correct thoughts throughout treatment. Patient currently reports no pain. Objective Patient Orientation: Unable to Assess Neuromuscular (Tone, Coordination, Reflexes) Patient demonstrates increased tone in right LE into plantarflexion. Sensory Hand Dominance: Left Sensation Right Lower Extremit: Impaired Sensation Left Lower Extremity: Impaired Sensation Lower Extremities Patient reports she is unable to feel any sites bilaterally during light touch sensation testing. Transfers Roll Left & Right (QC): 1 Sit to Lying (QC): 1 Lying to Sitting/Side of Bed(Q: 1 Sit to Stand (QC): 1 Chair/Xea-yc-Zoxwf Xfer(QC): 1 Toilet Transfer (QC): 1 Car Transfer (QC): 1 Gait Does the Patient Walk?: No and Walking Goal IS indicated Mode of Locomotion: Walk Anticipated Mode of Locomotion: Both Walk 10 feet (QC): 1 Walk 50 ft with 2 Turns(QC): 1 Walk 150 ft (QC): 1 Walking 10ft/uneven surface-QC: 1 Wheelchair Training Does the Pt Use a Wheelchair?: Yes Distance: 0 Wheel 50 ft with 2 turns (QC): 1 Wheel 150 ft (QC): 1 Type of Wheelchair: Manual Stairs 1 Step (curb) (QC): 1 4 Steps (QC): 1 12 Steps (QC): 1 Balance Sitting Static: Poor Sitting Dynamic: Poor Standing Static: Poor Standing Dynamic: Poor Picking up an Object (QC): 1 Treatment Visit, BRYANT Maldonado (2), Ex, Gait Assessment/Needs Patient lying supine in bed upon PT arrival with and patients friend in the room, all agreeable to treatment. Patient able to communicate at times, but due to aphasia demonstrates difficultly verbalizing her replies and needs. Requires max A for all observed bed mobility and transfers. Patient able to sit at edge of bed~ 10 minutes total, ~ 3 minutes of that total time with SBA. Patient required max A for stand pivot transfer to chair. Patient performs LE therapeutic exercise in supine and sitting. Patient in chair post treatment with family in the room, call light in reach, all needs met, nursing notified. Rehab Potential: Fair Equipment Needs FWW, W/C, Shower chair, grab bars in the bathroom, ramp PT Short Term Goals Short Term Goals Time Frame: Mar 06, 2021 Roll Left & Right: 3 Sit to lyin Lying to sitting on side of be: 3 Sit to stand: 3 Chair/jqb-ir-rynfc transfer: 3 Toilet transfer: 3 Car transfer: 3 Walk 10 feet: 2 Walk 50 feet with two turns: 2 Walk 150 feet: 2 Walking 10ft on uneven surface: 2 1 step (curb): 2 4 steps: 2 12 steps: 2 Picking up objects: 2 Wheel 50ft w/2 turns: 3 Wheel 150 feet: 3 Type: Manual PT Clinical Quality Manager Goals Clinical Quality Manager Goals PT Clinical Quality Manager Goals Time Frame: Mar 20, 2021 Roll Left & Right (QC): 5 Sit to Lying (QC): 5 Lying-Sitting on Side/Bed(QC): 5 Sit to Stand (QC): 5 Chair/Eow-iw-Cawqf Xfer(QC): 5 Toilet Transfer (QC): 5 Car Transfer (QC): 5 Does the Patient Walk: No and Walking Goal IS indicated Walk 10 feet (QC): 4 Walk 50ft with 2 Turns (QC): 4 Walk 150 ft (QC): 4 Walking 10ft on Uneven Surface: 4 1 Step (curb) (QC): 4 4 Steps (QC): 4 12 Steps (QC): 4 Picking up an Object (QC): 4 Does the Pt use WC or Scooter?: Yes Wheel 50 feet with 2 turns (QC: 5 Type: Manual Wheel 150 feet: 5 Type: Manual PT Plan Problem List Problem List: Activity Tolerance, Functional Strength, Safety, Balance, Gait, Transfer, Bed Mobility Treatment/Plan Treatment Plan: Continue Plan of Care Treatment Plan: Bed Mobility, Concurrent Therapy, Education, Functional Activity Kourtney, Functional Strength, Group Therapy, Gait, Safety, Therapeutic Exercise, Transfers Treatment Duration: Apr 03, 2021 Frequency: At least 5 of 7 days/Wk (IRF) Estimated Hrs Per Day: 1.5 hours per day Patient and/or Family Agrees t: Yes Safety Risks/Education Patient Education: Transfer Techniques, Reviewed Precautions Teaching Recipient: Patient, Family Teaching Methods: Demonstration, Discussion Response to Teaching: Verbalize Understanding Time/GCodes Time In: 1035 Time Out: 1520 Total Billed Treatment Time: 75 Total Billed Treatment Visit, Marely Maldonado FA (2), 10:35-10:45 ABDIAS Ca PT Feb 20, 2021 15:12
[2021-02-20] MEDS: DOCUSATE SODIUM 100 MG (COLACE) CAP PO SCH (20:03)
[2021-02-20] MEDS: polyethylene glycoL POWDER 17 GM (MIRALAX) PACK PO SCH (20:03)
[2021-02-20] MEDS: SENNA W/DOCUSATE (SENOKOT S) TABLET PO SCH (20:04)
[2021-02-20 20:15] VITALS: BP 130/69
[2021-02-21 05:09] LABS: BASOPHILS # (AUTO) 0.1 10^3/uL (0.0-0.1); BASOPHILS % (AUTO) 1 % (0-10); EOSINOPHILS # (AUTO) 0.2 10^3/uL (0.0-0.3); EOSINOPHILS % (AUTO) 2 % (0-10); HEMATOCRIT 42 % (35-52); HEMOGLOBIN 13.1 g/dL (11.5-16.0); LYMPHOCYTES # (AUTO) 2.5 10^3/uL (1.0-4.0); LYMPHOCYTES % (AUTO) 28 % (12-44); MEAN CORPUSCULAR HEMOGLOBIN 28 pg (25-34); MEAN CORPUSCULAR HGB CONC 32 g/dL (32-36); MEAN CORPUSCULAR VOLUME 88 fL (80-99); MEAN PLATELET VOLUME 9.3 fL (9.0-12.2); MONOCYTES # (AUTO) 0.7 10^3/uL (0.0-1.0); MONOCYTES % (AUTO) 8 % (0-12); NEUTROPHILS # (AUTO) 5.3 10^3/uL (1.8-7.8); NEUTROPHILS % (AUTO) 61 % (42-75); PLATELET COUNT 325 10^3/uL (130-400); WHITE BLOOD COUNT 8.7 10^3/uL (4.3-11.0)
[2021-02-21 05:22] LABS: ALBUMIN 3.9 GM/DL (3.2-4.5); POTASSIUM 4.5 MMOL/L (3.6-5.0)
[2021-02-21 05:23] LABS: CALCIUM 9.8 MG/DL (8.5-10.1)
[2021-02-21 05:25] LABS: TOTAL PROTEIN 7.1 GM/DL (6.4-8.2)
[2021-02-21 05:26] LABS: BILIRUBIN,TOTAL 0.4 MG/DL (0.1-1.0)
[2021-02-21 05:28] LABS: CREATININE SERUM 0.81 MG/DL (0.60-1.30)
[2021-02-21 08:00] VITALS: BP 139/74
[2021-02-21] MEDS: DOCUSATE SODIUM 100 MG (COLACE) CAP PO SCH ×2 (08:12→21:16)
[2021-02-21] MEDS: polyethylene glycoL POWDER 17 GM (MIRALAX) PACK PO SCH ×2 (08:13→21:16)
[2021-02-21] MEDS: SENNA W/DOCUSATE (SENOKOT S) TABLET PO SCH ×3 (08:13→21:16)
--- NOTE | 2021-02-21 11:25 | Occupational Ther Daily Note ---
OT Current Status-Daily Note Subjective Pt. sleeping in bed, difficult to wake. Pt. agreed to therapy. Mental Status/Objective Patient Orientation: Person, Non-Verbal/Aphasic, Situation ADL-Treatment Pt agrees to shower. Max A for supine to EOB. Max A x2 for SPT from EOB to rolling shower chair. Pt transported via rolling shower chair to large shower room for shower. Using rolling shower chair with cutout and hand held shower, pt participated in shower. PT/ OT co-treat ([id number]), skills of 2 clinicians required for instruction and care to decrease fall risk, increase transfers and functional tasks. PT focusing on standing, transfers and w/c mobility while OT focusing on ADLs, proper stance in standing and placement of R UE in mobility. Therapy Code Descriptions/Definitions Functional [place] Measure: 0=Not Assessed/NA 4=Minimal Assistance 1=Total Assistance 5=Supervision or Setup 2=Maximal Assistance 6=Modified [place] 3=Moderate Assistance 7=Complete IndependenceSCALE: Activities may be completed with or without assistive devices. 7-Tnjwxsjpuf-uskgztb completes the activity by him/herself with no assistance from a helper. 5-Set-up or Clean-up Assistance-helper sets up or cleans up; patient completes activity. [place] assists only prior to or following the activity. 4-Supervision or Touching Assistance-helper provides verbal cues and/or touching/steadying and/or contact guard assistance as patient completes activity. Assistance may be provided throughout the activity or intermittently. 3-Partial/Moderate Assistance-helper does LESS THAN HALF the effort. [place] lifts, holds or supports trunk or limbs, but provides less than half the effort. 2-Substantial/Maximal Assistance-helper does MORE THAN HALF the effort. [place] lifts or holds trunk or limbs and provides more than half the effort. 2-Pwoankomn-rzpdcw does ALL the effort. Patient does none of the effort to complete the activity. Or, the assistance of 2 or more helpers is required for the patient to complete the activity. If activity was not attempted, code reason: 7-Patient Refused. 9-Not Applicable-not attempted and the patient did not perform the activity before the current illness, exacerbation or injury. 10-Not Attempted due to Environmental Limitations-(lack of equipment, weather restraints, etc.). 88-Not Attempted due to Medical Conditions or Safety Concerns. Bathing Location: L Arm Shower/Bathe Self (QC): 2 (Pt. able to wash chest after set up then required assurance assistant for all other areas. ) Upper Body Dressing (QC): 2 (Pt. threaded L arm into hospital gown. ) Lower Body Dressing (QC): 1 (Pt. lifted feet for non-skid socks to be donned. ) On/Off Footwear: 2 (Pt. able to lift L leg to assist and attempts to lift R leg to assist to don/doff socks. ) Other Treatment Assist for w/c mobility, able to use L UE/LE to propel w/c with mod A. Pt stood at parallel bars 3x's with max A x2, fatigued quickly. After session, pt lying in bed with call light/phone in reach. All needs met in room. OT Short Term Goals Short Term Goals Time Frame: Mar 06, 2021 Toileting hygiene: 3 Shower/bathe self: 3 Upper body dressin Lower body dressin OT Penitentiary Goals [facility]it[facility]iary Goals Time Frame: Mar 23, 2021 Eating (QC): 5 Oral Hygiene (QC): 5 Toileting Hygiene (QC): 4 Shower/Bathe Self (QC): 4 Upper Body Dressing (QC): 5 Lower Body Dressing (QC): 4 On/Off Footwear (QC): 4 Additional Goals: 1-Demonstrate ADL Tasks, 2-Verbalize Understanding, 3- ImproveStrength/Kourtney 1=Demonstrate adherence to instructed precautions during ADL tasks. 2=Patient will verbalize/demonstrate understanding of assistive devices/modifications for ADL. 3=Patient will improve strength/tolerance for activity to enable patient to perform ADL's. OT Education/Plan Problem List/Assessment Assessment: Decreased Activ Tolerance, Decreased Safety Aware, Decreased UE Strength, Dependent Transfers, Impaired Bed Mobility, Impaired Cognition, Impaired Coordination, Impaired Funct Balance, Impaired I ADL's, Impaired Self- Care Skills, Restricted Funct UE ROM Discharge Recommendations Plan/Recommendations: Continue POC Treatment Plan/Plan of Care Patient would benefit from OT for education, treatment and training to promote independence in ADL's, mobility, safety and/or upper extremity function for ADL's. Plan of Care: ADL Retraining, Functional Mobility, Group Exercise/Act as Ind, UE Funct Exercise/Act, UE Neuromus Re-Ed/Coord Treatment Duration: Mar 23, 2021 Frequency: At least 5 of 7 days/Wk (IRF) Estimated Hrs Per Day: 1.5 hours per day Rehab Potential: Fair Time/GCodes Start Time: 10:00 Stop Time: 11:30 Total Time Billed (hr/min): 90 Billed Treatment Time 1 visit-ADL 4 (60 min) NM 2 (30 min) co-treat with PT [id number], individual [id number] IAN RAMIREZ Feb 21, 2021 11:25
--- NOTE | 2021-02-21 11:45 | Physical Therapy Daily Note ---
PT Daily Note-Current Subjective Patient in shower room pre tx, agrees to PT, has no complaints of pain. Will be co-treating with OT due to poor patient mobility, strength, endurance, right hemiparesis, coordinate UE and LE during activity, safety and reduce risk of falls. Appearance Patient in bed post tx with nurse call, phone, tray, all needs met. Mental Status Patient Orientation: Person, Unable to Assess, Non-Verbal/Aphasic Transfers SCALE: Activities may be completed with or without assistive devices. 5-Nvegdwbofz-zywfojt completes the activity by him/herself with no assistance from a helper. 5-Set-up or Clean-up Assistance-helper sets up or cleans up; patient completes activity. [place] assists only prior to or following the activity. 4-Supervision or Touching Assistance-helper provides verbal cues and/or touching/steadying and/or contact guard assistance as patient completes activity. Assistance may be provided throughout the activity or intermittently. 3-Partial/Moderate Assistance-helper does LESS THAN HALF the effort. [place] lifts, holds or supports trunk or limbs, but provides less than half the effort. 2-Substantial/Maximal Assistance-helper does MORE THAN HALF the effort. [place] lifts or holds trunk or limbs and provides more than half the effort. 5-Gbqkyfpph-owmjmr does ALL the effort. Patient does none of the effort to complete the activity. Or, the assistance of 2 or more helpers is required for the patient to complete the activity. If activity was not attempted, code reason: 7-Patient Refused. 9-Not Applicable-not attempted and the patient did not perform the activity before the current illness, exacerbation or injury. 10-Not Attempted due to Environmental Limitations-(lack of equipment, weather restraints, etc.). 88-Not Attempted due to Medical Conditions or Safety Concerns. Roll Left & Right (QC): 1 Sit to Lying (QC): 1 Sit to Stand (QC): 1 Chair/Krr-yt-Rsbyy Xfer(QC): 1 Patient requires assist of 2 for bed mobility and transfers at this time. At the beginning of tx patient just finished with a shower, needs to get dressed and get brief on, stands with dependence to complete this, stands again (dependent) and WC is placed behind her. Wheelchair Training Does the Pt Use a Wheelchair?: Yes Wheel 50 ft with 2 turns (QC): 3 Wheel 150 ft (QC): 3 Type of Wheelchair: Manual 150'x2, mod assist, helps propel with left arm, encouraged to use left foot to help propel but she doesn't seem to be able to coordinate that. 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 Patient needs assist blocking her right knee and assist and cues for proper posture. Treatments PT performed standing for dressing and drying off after bathing, transfers, standing, WC mobility, OT peformed dressing and finishing bathing, UE positioning and safety during activity, assist with standing and transfers. Assessment Current Status: Poor Progress dependent for mobility PT Short Term Goals Short Term Goals Time Frame: Mar 06, 2021 Roll Left & Right: 3 Sit to lyin Lying to sitting on side of be: 3 Sit to stand: 3 Chair/skn-rp-mdvwl transfer: 3 Toilet transfer: 3 Car transfer: 3 Walk 10 feet: 2 Walk 50 feet with two turns: 2 Walk 150 feet: 2 Walking 10ft on uneven surface: 2 1 step (curb): 2 4 steps: 2 12 steps: 2 Picking up objects: 2 Wheel 50ft w/2 turns: 3 Wheel 150 feet: 3 Type: Manual PT Custodial Goals Beater Room Supervisor Goals PT Beater Room Supervisor Goals Time Frame: Mar 20, 2021 Roll Left & Right (QC): 5 Sit to Lying (QC): 5 Lying-Sitting on Side/Bed(QC): 5 Sit to Stand (QC): 5 Chair/Gjd-mo-Coauu Xfer(QC): 5 Toilet Transfer (QC): 5 Car Transfer (QC): 5 Does the Patient Walk: No and Walking Goal IS indicated Walk 10 feet (QC): 4 Walk 50ft with 2 Turns (QC): 4 Walk 150 ft (QC): 4 Walking 10ft on Uneven Surface: 4 1 Step (curb) (QC): 4 4 Steps (QC): 4 12 Steps (QC): 4 Picking up an Object (QC): 4 Does the Pt use WC or Scooter?: Yes Wheel 50 feet with 2 turns (QC: 5 Type: Manual Wheel 150 feet: 5 Type: Manual PT Plan Problem List Problem List: Activity Tolerance, Functional Strength, Safety, Balance, Gait, Transfer, Bed Mobility, ROM Treatment/Plan Treatment Plan: Continue Plan of Care Treatment Plan: Bed Mobility, Concurrent Therapy, Education, Functional Activity Kourtney, Functional Strength, Group Therapy, Gait, Safety, Therapeutic Exercise, Transfers Treatment Duration: Apr 03, 2021 Frequency: At least 5 of 7 days/Wk (IRF) Estimated Hrs Per Day: 1.5 hours per day Patient and/or Family Agrees t: Yes Safety Risks/Education Patient Education: Transfer Techniques, Correct Positioning, W/C Management, Safety Issues Teaching Recipient: Patient Teaching Methods: Demonstration, Discussion Response to Teaching: Reinforcement Needed Time/GCodes Time In: 1030 Time Out: 1130 Total Billed Treatment Time: 60 Total Billed Treatment 1 visit FA 60' ELAINE MINAYA PT Feb 21, 2021 11:45
--- NOTE | 2021-02-21 13:56 | Physical Therapy Daily Note ---
PT Daily Note-Current Subjective Patient in bed pre tx, agrees to PT, has no complaints of pain. Appearance Patient in bed post tx with nurse call, phone, tray, all needs met. Mental Status Patient Orientation: Person, Unable to Assess, Non-Verbal/Aphasic Transfers SCALE: Activities may be completed with or without assistive devices. 3-Ffzomzodcg-hreekup completes the activity by him/herself with no assistance from a helper. 5-Set-up or Clean-up Assistance-helper sets up or cleans up; patient completes activity. [place] assists only prior to or following the activity. 4-Supervision or Touching Assistance-helper provides verbal cues and/or touching/steadying and/or contact guard assistance as patient completes activity. Assistance may be provided throughout the activity or intermittently. 3-Partial/Moderate Assistance-helper does LESS THAN HALF the effort. [place] lifts, holds or supports trunk or limbs, but provides less than half the effort. 2-Substantial/Maximal Assistance-helper does MORE THAN HALF the effort. [place] lifts or holds trunk or limbs and provides more than half the effort. 4-[place]-ilwmxm does ALL the effort. Patient does none of the effort to complete the activity. Or, the assistance of 2 or more helpers is required for the patient to complete the activity. If activity was not attempted, code reason: 7-Patient Refused. 9-Not Applicable-not attempted and the patient did not perform the activity before the current illness, exacerbation or injury. 10-Not Attempted due to Environmental Limitations-(lack of equipment, weather restraints, etc.). 88-Not Attempted due to Medical Conditions or Safety Concerns. Exercises Supine Ex: Ankle pumps, Quad Set, Glut sets, Heel Slides, Short Arc Quads, Straight leg raise, Hip abd/add Supine Reps: 20 (LLE) RLE PROM, patient encouraged to participate with AROM but she cannot. Treatments LE ROM Assessment Current Status: Fair Progress patient has some extensor tone in RLE PT Short Term Goals Short Term Goals Time Frame: Mar 06, 2021 Roll Left & Right: 3 Sit to lyin Lying to sitting on side of be: 3 Sit to stand: 3 Chair/znr-og-qnwmf transfer: 3 Toilet transfer: 3 Car transfer: 3 Walk 10 feet: 2 Walk 50 feet with two turns: 2 Walk 150 feet: 2 Walking 10ft on uneven surface: 2 1 step (curb): 2 4 steps: 2 12 steps: 2 Picking up objects: 2 Wheel 50ft w/2 turns: 3 Wheel 150 feet: 3 Type: Manual PT Nursing Home Goals Nursing Home Goals PT Diesel Power Shovel Operator Goals Time Frame: Mar 20, 2021 Roll Left & Right (QC): 5 Sit to Lying (QC): 5 Lying-Sitting on Side/Bed(QC): 5 Sit to Stand (QC): 5 Chair/Pml-rx-Wtmef Xfer(QC): 5 Toilet Transfer (QC): 5 Car Transfer (QC): 5 Does the Patient Walk: No and Walking Goal IS indicated Walk 10 feet (QC): 4 Walk 50ft with 2 Turns (QC): 4 Walk 150 ft (QC): 4 Walking 10ft on Uneven Surface: 4 1 Step (curb) (QC): 4 4 Steps (QC): 4 12 Steps (QC): 4 Picking up an Object (QC): 4 Does the Pt use WC or Scooter?: Yes Wheel 50 feet with 2 turns (QC: 5 Type: Manual Wheel 150 feet: 5 Type: Manual PT Plan Problem List Problem List: Activity Tolerance, Functional Strength, Safety, Balance, Gait, Transfer, Bed Mobility, ROM Treatment/Plan Treatment Plan: Continue Plan of Care Treatment Plan: Bed Mobility, Concurrent Therapy, Education, Functional Activity Kourtney, Functional Strength, Group Therapy, Gait, Safety, Therapeutic Exercise, Transfers Treatment Duration: Apr 03, 2021 Frequency: At least 5 of 7 days/Wk (IRF) Estimated Hrs Per Day: 1.5 hours per day Patient and/or Family Agrees t: Yes Safety Risks/Education Patient Education: Correct Positioning, Safety Issues Teaching Recipient: Patient Teaching Methods: Demonstration, Discussion Response to Teaching: Reinforcement Needed Time/GCodes Time In: 1330 Time Out: 1400 Total Billed Treatment Time: 30 Total Billed Treatment 1 visit EX 30' ELAINE MINAYA PT Feb 21, 2021 13:56
--- NOTE | 2021-02-21 16:32 | Consultation-Cardiology ---
HPI-Cardiology Cardiology Consultation: Date of Consultation 02/21/21 Time Seen by a Provider: 13:15 Date of Admission Attending Physician Heena Cain DO Admitting Physician Ilan Hayden MD Consulting Physician ALEKS WAYNE MD, MA, FACP, FACC, [facility], [facility] Physician requesting consult: Dr Cain HPI: Chief Complaint: Reason for consultation: Cardiac co-management This is a [address] Cain has admitted to her service for stroke rehab after she has been transferred from where, apparently, she presented with R hemiplegia/paresis and dysphasia in early Feb 2021. The patient does not recall the stroke. When I asked her, she said she has not had a stroke. She, apparently, was diagnosed with a subacute stroke and did not receive any thrombolytic therapy. She is reported have had L MCA stroke and is also stated to have had L ICA occlusion. Dr Cain's note states a h/o hypertension and A Fib, but the patient does not provide any such history and is currently not on any anticoagulant (is on dual antiplatelet therapy). She does not report any cp or palp or swelling. She does not report n/v. She states she feels well Review of Systems-Cardiology Review of Systems Constitutional: malaise; No weight loss, No weight gain Eyes: No vision change Ears/Nose/Throat: No ear discharge, No nasal drainage, No recent hearing loss Respiratory: As described under HPI Cardiovascular: As described under HPI Gastrointestinal: As described under HPI Genitourinary: No dysuria, No hematuria, No urine frequency changes Musculoskeletal: No back pain, No joint pain Skin: No rash, No ulcerations Psychiatric/Neurological: other (right-sided weakness) Hematologic: No bleeding abnormalities All Other Systems Reviewed Negative Unless Noted: Yes NNU-Oahylg-Bmxuab Hx Patient Social History Marrital Status: Employed/Student: retired Smoking Status: Never a Smoker Have you traveled recently?: Unable to obtain Alcohol Use?: No Pt feels they are or have been: Unable to obtain Tobacco type used: Cigarettes Past Medical History PMH As described under Assessment. Family Medical History Family Medical History: She does not report fam h/o early CAD Allergies and Home Medications Allergies Coded Allergies: hydrocodone (Unverified Allergy, Unknown, 06/22/14) Home Medications Acetaminophen 325 Mg Tablet, 650 MG PO Q4H PRN for PAIN-MILD (1-4), (Reported) Last Action: Continued Aspirin 81 Mg Tab.chew, 81 MG PO DAILY, (Reported) TAKE WITH FOOD Last Action: Continued Atorvastatin Calcium 80 Mg Tablet, 80 MG PO DAILY, (Reported) Last Action: Continued Buspirone HCl 5 Mg Tablet, 5 MG PO BID, (Reported) Last Action: Continued Clopidogrel Bisulfate 75 Mg Tablet, 75 MG PO DAILY, (Reported) Last Action: Continued Pantoprazole Sodium 40 Mg Tablet.dr, 40 MG PO BID, (Reported) Last Action: Continued Sennosides/Docusate Sodium 1 Each Tablet, 1 EACH PO BID, (Reported) Last Action: Continued Sertraline HCl 100 Mg Tablet, 100 MG PO DAILY, (Reported) Last Action: Continued Patient Home Medication List Home Medication List Reviewed: Yes Physical Exam-Cardiology Physical Exam Vital Signs/I&O 02/21/21 02/21/21 08:00 09:00 Temp 36.1 Pulse 81 Resp 18 B/P (MAP) 139/74 (95) Pulse Ox 94 94 O2 Delivery Room Air Room Air Capillary Refill : Constitutional: other (appears intermittently confused) HEENT: PERRL; No xanthelasmas are seen Neck: No non-tender; supple Respiratory: No accessory muscle use; other (good, bilateral air entry) Cardiovascular: regular rate-rhythm, S1 and S2 Gastrointestinal: No tender; soft; No guarding, No rebound; audible bowel sounds Extremities: No swelling, No clubbing, No cyanosis Neurologic/Psychiatric: other (R-sided weakness (3-4/5 power in R upper and R lower limbs); dysphasia; intermittent confusion) Skin: No rash on exposed areas, No ulcerations on exposed areas Data Review Labs Laboratory Tests 02/21/21 04:45: White Blood Count 8.7, Red Blood Count 4.71, Hemoglobin 13.1, Hematocrit 42, Mean Corpuscular Volume 88, Mean Corpuscular Hemoglobin 28, Mean Corpuscular Hemoglobin Concent 32, Red Cell Distribution Width 12.6, Platelet Count 325, Mean Platelet Volume 9.3, Immature Granulocyte % (Auto) 0, Neutrophils (%) (Auto) 61, Lymphocytes (%) (Auto) 28, Monocytes (%) (Auto) 8, Eosinophils (%) (Auto) 2, Basophils (%) (Auto) 1, Neutrophils # (Auto) 5.3, Lymphocytes # (Auto) 2.5, Monocytes # (Auto) 0.7, Eosinophils # (Auto) 0.2, Basophils # (Auto) 0.1, Immature Granulocyte # (Auto) 0.0, Sodium Level 137, Potassium Level 4.5, Chloride Level 101, Carbon Dioxide Level 26, Anion Gap 10, Blood Urea Nitrogen 22H, Creatinine 0.81, Estimat Glomerular Filtration Rate 70, BUN/Creatinine Ratio 27, Glucose Level 115H, Calcium Level 9.8, Corrected Calcium 9.9, Total Bilirubin 0.4, Aspartate Amino Transf (AST/SGOT) 59H, Alanine Aminotransferase (ALT/SGPT) 65H, Alkaline Phosphatase 78, Total Protein 7.1, Albumin 3.9 A/P-Cardiology Assessment/Admission Diagnosis H/o A Fib per Dr. Cain's H&P of 02/20/21 L MCA and L ICA occlusion resulting in R hemiparesis and dysphasia Hypertension Discussion and Recomendations * Oral anticoag (because of h/o A Fib, as reported in Dr. Cain's H&P) * Continue ASA * D/c Plavix (to reduce risk of bleeding that would be considerable if pt remains on apixaban + aspirin + clopidogrel) * Tele to eval rhythm * ECG * Echo * Monitor labs ALEKS WAYNE MD [facility] Feb 21, 2021 16:32
[2021-02-21 20:11] VITALS: BP 125/80
[2021-02-21] MEDS: PANTOPRAZOLE 40 MG (PROTONIX) TAB PO SCH (20:56)
[2021-02-21] MEDS: MELATONIN 3 MG TABLET PO PRN (20:56)
[2021-02-21] MEDS: APIXABAN 5 MG (ELIQUIS) TABLET PO SCH (20:56)
[2021-02-21] MEDS: busPIRone 5 MG (BUSPAR) TAB PO SCH (20:56)
[2021-02-21] MEDS ORDERED: APIXABAN 5 MG (ELIQUIS) TABLET PO SCH (21:00)
--- NOTE | 2021-02-21 21:19 | PM&R Progress Note ---
Subjective HPI/CC On Admission Date Seen by Provider: Feb 21, 2021 Time Seen by Provider: 10:00 Subjective/Events-last exam 02/21/2021: Patient seems to be settling in well Just had a shower Expressive aphasia makes it difficult to communicate Remains a max assist No major issues Bowels are moving Incontinent at times Remains a feeder Cardiology consult appreciated Review of Systems General: Fatigue, Malaise Neurological: Weakness, Incoordination, Change in speech Objective Exam Vital Signs Vital Signs Date Time Temp Pulse Resp B/P (MAP) Pulse Ox O2 Delivery O2 Flow Rate FiO2 02/22/21 01:00 90 02/21/21 21:00 94 Room Air 02/21/21 20:11 35.9 18 125/80 (95) Capillary Refill : General Appearance: No Apparent Distress, WD/WN, Chronically ill, Obese HEENT: PERRL/EOMI, Normal ENT Inspection, Pharynx Normal Neck: Full Range of Motion, Normal Inspection, Non Tender, Supple, Carotid Bruit Respiratory: Chest Non Tender, Lungs Clear, Normal Breath Sounds, No Accessory Muscle Use, No Respiratory Distress Cardiovascular: Regular Rate, Rhythm, No Edema, No Gallop, No JVD, No Murmur, Normal Peripheral Pulses Gastrointestinal: Normal Bowel Sounds, No Organomegaly, No Pulsatile Mass, Non Tender, Soft Back: Normal Inspection, No CVA Tenderness, No Vertebral Tenderness Extremity: Normal Capillary Refill, Normal Inspection, Normal Range of Motion, Non Tender, No Calf Tenderness, No Pedal Edema Neurologic/Psychiatric: Alert, Oriented x3, Abnormal Gait, Depressed Affect, Facial Droop (Right), Motor Weakness (Right-sided weakness 1/5) Skin: Normal Color, Warm/Dry Lymphatic: No Adenopathy Results/Procedures Lab Patient resulted labs reviewed. FIM Transfers Therapy Code Descriptions/Definitions Functional [place] Measure: 0=Not Assessed/NA 4=Minimal Assistance 1=Total Assistance 5=Supervision or Setup 2=Maximal Assistance 6=Modified [place] 3=Moderate Assistance 7=Complete IndependenceSCALE: Activities may be completed with or without assistive devices. 7-Fxahoveaab-barrirp completes the activity by him/herself with no assistance from a helper. 5-Set-up or Clean-up Assistance-helper sets up or cleans up; patient completes activity. [place] assists only prior to or following the activity. 4-Supervision or Touching Assistance-helper provides verbal cues and/or touching/steadying and/or contact guard assistance as patient completes activity. Assistance may be provided throughout the activity or intermittently. 3-Partial/Moderate Assistance-helper does LESS THAN HALF the effort. [place] lifts, holds or supports trunk or limbs, but provides less than half the effort. 2-Substantial/Maximal Assistance-helper does MORE THAN HALF the effort. [place] lifts or holds trunk or limbs and provides more than half the effort. 9-Xpjhfbgsf-ihatzd does ALL the effort. Patient does none of the effort to complete the activity. Or, the assistance of 2 or more helpers is required for the patient to complete the activity. If activity was not attempted, code reason: 7-Patient Refused. 9-Not Applicable-not attempted and the patient did not perform the activity before the current illness, exacerbation or injury. 10-Not Attempted due to Environmental Limitations-(lack of equipment, weather restraints, etc.). 88-Not Attempted due to Medical Conditions or Safety Concerns. Roll Left to Right (QC): 1 Sit to Lying (QC): 1 Sit to Stand (QC): 1 Chair/Xue-qb-Nzoqt Xfer(QC): 1 Car Transfer (QC): 1 Gait Training Does the Patient Walk?: No and Walking Goal IS indicated Walk 10 feet (QC): 1 Walk 50 ft with 2 Turns(QC): 1 Walk 150 ft (QC): 1 Walking 10ft/uneven surface-QC: 1 Wheelchair Training Does the Pt Use a Wheelchair?: Yes Distance: 0 Wheel 50 ft with 2 turns (QC): 3 Wheel 150 ft (QC): 3 Type of Wheelchair: Manual Stair Training 1 Step (curb) (QC): 1 4 Steps (QC): 1 12 Steps (QC): 1 Balance Picking up an Object (QC): 1 ADL-Treatment Eating (QC): 4 (Per clinical judgment, pt able to use utensils to eat though requires set up and supervision for safety due to swallowing issues.) Oral Hygiene (QC): 4 Bathing Location: L Arm Shower/Bathe Self (QC): 2 (Pt. able to wash chest after set up then required mobile sales assistant for all other areas. ) Upper Body Dressing (QC): 2 (Pt. threaded L arm into hospital gown. ) Lower Body Dressing (QC): 1 (Pt. lifted feet for non-skid socks to be donned. ) On/Off Footwear (QC): 2 (Pt. able to lift L leg to assist and attempts to lift R leg to assist to don/doff socks. ) Toileting Hygiene (QC): 1 Toilet Transfer (QC): 1 Assessment/Plan Assessment and Plan Assess & Plan/Chief Complaint Assessment: CVA with right-sided weakness Expressive aphasia Dysarthria Hypertension Chronic atrial fibrillation Oral anticoagulants maintained Obesity Plan: Continue current active meds Speech therapy PT and OT Aggressive therapy 02/21/2021: Appreciate cardiology consult Supportive care Aggressive physical therapy (1) CVA (cerebral vascular accident) Status: Acute (2) Atrial fibrillation (3) Hypertension (4) Obesity (5) Chronic anticoagulation (6) Expressive aphasia (7) Dysarthria (8) Right sided weakness SEAN MARTINS DO Feb 21, 2021 21:18
[2021-02-22 08:00] VITALS: BP 125/69
[2021-02-22] MEDS: DOCUSATE SODIUM 100 MG (COLACE) CAP PO SCH ×2 (08:15→20:34)
[2021-02-22] MEDS: SENNA W/DOCUSATE (SENOKOT S) TABLET PO SCH ×4 (08:15→20:37)
[2021-02-22] MEDS: polyethylene glycoL POWDER 17 GM (MIRALAX) PACK PO SCH ×2 (08:15→20:37)
--- NOTE | 2021-02-22 08:56 | Occupational Ther Daily Note ---
OT Current Status-Daily Note Subjective Pt. in bed sleeping when entered. Easy to wake and become alert. Pt. agreed to therapy. During session pt. fatigued quickly. Mental Status/Objective Patient Orientation: Person, Non-Verbal/Aphasic, Situation Attachments: Telemetry ADL-Treatment Pt. agreed to eat breakfast. Pt. placed R UE on table tray while exploring contents. Pt. used L UE to get food to mouth finger foods were easier. When introduced to hooked spoon pt. was not interested in trying to use for eating at this time. PT/ OT co-treat ([id number]), skills of 2 clinicians required for instruction and care to decrease fall risk, increase transfers and functional tasks. PT focusing on standing, transfers and w/c mobility while OT focusing on ADLs, proper stance in standing and placement of R UE in mobility. Min A for turning side to side. Assist x2 to scoot up in bed. In supine, pt required assist x2 for cleansing after urinary incontinence and to complete lower body dressing. Max A to don/doff socks. Max A to don/doff upper body clothing. Max A for supine to EOB. Min A to CGA to sit EOB. Therapy Code Descriptions/Definitions Functional [place] Measure: 0=Not Assessed/NA 4=Minimal Assistance 1=Total Assistance 5=Supervision or Setup 2=Maximal Assistance 6=Modified [place] 3=Moderate Assistance 7=Complete IndependenceSCALE: Activities may be completed with or without assistive devices. 4-Rzolqzztaz-eipmuqv completes the activity by him/herself with no assistance from a helper. 5-Set-up or Clean-up Assistance-helper sets up or cleans up; patient completes activity. [place] assists only prior to or following the activity. 4-Supervision or Touching Assistance-helper provides verbal cues and/or touching/steadying and/or contact guard assistance as patient completes activity. Assistance may be provided throughout the activity or intermittently. 3-Partial/Moderate Assistance-helper does LESS THAN HALF the effort. [place] lifts, holds or supports trunk or limbs, but provides less than half the effort. 2-Substantial/Maximal Assistance-helper does MORE THAN HALF the effort. [place] lifts or holds trunk or limbs and provides more than half the effort. 1-Foijyzoeq-nltwvo does ALL the effort. Patient does none of the effort to complete the activity. Or, the assistance of 2 or more helpers is required for the patient to complete the activity. If activity was not attempted, code reason: 7-Patient Refused. 9-Not Applicable-not attempted and the patient did not perform the activity before the current illness, exacerbation or injury. 10-Not Attempted due to Environmental Limitations-(lack of equipment, weather restraints, etc.). 88-Not Attempted due to Medical Conditions or Safety Concerns. Eating (QC): 4 (Set up/supervision) Upper Body Dressing (QC): 2 Lower Body Dressing (QC): 1 On/Off Footwear: 2 Toileting Hygiene (QC): 1 Other Treatment Pt propelling w/c with min-mod A using L UE/LE. Pt stood at parallel bars with Max A x2. ANNE assisted with positioning R UE and hips for upright stance. Monitored pt's BP throughout session due to increase fatigue of pt with standing, 117/77. After therapy, pt sitting up in recliner with call light/phone in reach. All needs met in room. OT Short Term Goals Short Term Goals Time Frame: Mar 06, 2021 Toileting hygiene: 3 Shower/bathe self: 3 Upper body dressin Lower body dressin OT Mcc Goals [employer] Worker Goals Time Frame: Mar 23, 2021 Eating (QC): 5 Oral Hygiene (QC): 5 Toileting Hygiene (QC): 4 Shower/Bathe Self (QC): 4 Upper Body Dressing (QC): 5 Lower Body Dressing (QC): 4 On/Off Footwear (QC): 4 Additional Goals: 1-Demonstrate ADL Tasks, 2-Verbalize Understanding, 3- ImproveStrength/Kourtney 1=Demonstrate adherence to instructed precautions during ADL tasks. 2=Patient will verbalize/demonstrate understanding of assistive devices/modifications for ADL. 3=Patient will improve strength/tolerance for activity to enable patient to perform ADL's. OT Education/Plan Problem List/Assessment Assessment: Decreased Activ Tolerance, Decreased Safety Aware, Decreased UE Strength, Dependent Transfers, Impaired Bed Mobility, Impaired Cognition, Impaired Coordination, Impaired Funct Balance, Impaired I ADL's, Impaired Self- Care Skills, Restricted Funct UE ROM, Visual-Perceptual Deficit Discharge Recommendations Plan/Recommendations: Continue POC Treatment Plan/Plan of Care Patient would benefit from OT for education, treatment and training to promote independence in ADL's, mobility, safety and/or upper extremity function for ADL's. Plan of Care: ADL Retraining, Functional Mobility, Group Exercise/Act as Ind, UE Funct Exercise/Act, UE Neuromus Re-Ed/Coord Treatment Duration: Mar 23, 2021 Frequency: At least 5 of 7 days/Wk (IRF) Estimated Hrs Per Day: 1.5 hours per day Rehab Potential: Fair Time/GCodes Start Time: 07:30 Stop Time: 09:00 Total Time Billed (hr/min): 90 Billed Treatment Time 1 visit-ADL 3 (45 min) NM 3 (45 min) co-treat with [id number], individual 07 30-08 IAN RAMIREZ Feb 22, 2021 08:56
--- NOTE | 2021-02-22 08:56 | Physical Therapy Daily Note ---
PT Daily Note-Current Subjective Patient in bed pre tx, agrees to PT, has no complaints of pain, will be co- treating with OT due to poor patient mobility, strength, endurance, right hemiparesis, coordinate UE and LE during activity, safety and reduce risk of falls. Appearance Patient in recliner post tx with nurse call, phone, tray, legs elevated, all needs met. Mental Status Patient Orientation: Person, Unable to Assess, Non-Verbal/Aphasic Transfers SCALE: Activities may be completed with or without assistive devices. 3-Zhallcatqj-weqhivm completes the activity by him/herself with no assistance from a helper. 5-Set-up or Clean-up Assistance-helper sets up or cleans up; patient completes activity. [place] assists only prior to or following the activity. 4-Supervision or Touching Assistance-helper provides verbal cues and/or touching/steadying and/or contact guard assistance as patient completes activity. Assistance may be provided throughout the activity or intermittently. 3-Partial/Moderate Assistance-helper does LESS THAN HALF the effort. [place] lifts, holds or supports trunk or limbs, but provides less than half the effort. 2-Substantial/Maximal Assistance-helper does MORE THAN HALF the effort. [place] lifts or holds trunk or limbs and provides more than half the effort. 0-Ofokzjzdn-jyfhzt does ALL the effort. Patient does none of the effort to complete the activity. Or, the assistance of 2 or more helpers is required for the patient to complete the activity. If activity was not attempted, code reason: 7-Patient Refused. 9-Not Applicable-not attempted and the patient did not perform the activity before the current illness, exacerbation or injury. 10-Not Attempted due to Environmental Limitations-(lack of equipment, weather restraints, etc.). 88-Not Attempted due to Medical Conditions or Safety Concerns. Roll Left & Right (QC): 3 Lying to Sitting/Side of Bed(Q: 3 Sit to Stand (QC): 3 Chair/Uph-bt-[place] Xfer(QC): 3 Patient has to roll from side to side about 3-[address] to clean urine and to get brief and pants on, she does this with mod assist. Patient sits with mod assist and gets shirt on then stand pivot transfer to mod assist. Wheelchair Training Does the Pt Use a Wheelchair?: Yes Wheel 50 ft with 2 turns (QC): 3 Wheel 150 ft (QC): 3 Type of Wheelchair: Manual mod assist, uses left arm and leg but needs cues and some assist to use both at the same time, 300', 120' Exercises standing in the parallel bars x4 with assist of 2, patient's eyes roll in the back of her head with standing, she can stand for about 30 seconds each time, her BP runs about 118/78, when asked if it makes her tired when she stands she says yes. Treatments PT performed rolling, bed mobility and transfers, WC mobility, standing, OT performed dressing, cleaning, UE positioning and safety during activity Assessment Current Status: Fair Progress slightly improved sit to stand and transfers, patient very fatigued PT Short Term Goals Short Term Goals Time Frame: Mar 06, 2021 Roll Left & Right: 3 Sit to lyin Lying to sitting on side of be: 3 Sit to stand: 3 Chair/yyi-dq-lwguk transfer: 3 Toilet transfer: 3 Car transfer: 3 Walk 10 feet: 2 Walk 50 feet with two turns: 2 Walk 150 feet: 2 Walking 10ft on uneven surface: 2 1 step (curb): 2 4 steps: 2 12 steps: 2 Picking up objects: 2 Wheel 50ft w/2 turns: 3 Wheel 150 feet: 3 Type: Manual PT Fdc Goals Director Of Curriculum And Instruction Goals PT Director Of Curriculum And Instruction Goals Time Frame: Mar 20, 2021 Roll Left & Right (QC): 5 Sit to Lying (QC): 5 Lying-Sitting on Side/Bed(QC): 5 Sit to Stand (QC): 5 Chair/Yuo-zp-Blomm Xfer(QC): 5 Toilet Transfer (QC): 5 Car Transfer (QC): 5 Does the Patient Walk: No and Walking Goal IS indicated Walk 10 feet (QC): 4 Walk 50ft with 2 Turns (QC): 4 Walk 150 ft (QC): 4 Walking 10ft on Uneven Surface: 4 1 Step (curb) (QC): 4 4 Steps (QC): 4 12 Steps (QC): 4 Picking up an Object (QC): 4 Does the Pt use WC or Scooter?: Yes Wheel 50 feet with 2 turns (QC: 5 Type: Manual Wheel 150 feet: 5 Type: Manual PT Plan Problem List Problem List: Activity Tolerance, Functional Strength, Safety, Balance, Gait, Transfer, Bed Mobility, ROM Treatment/Plan Treatment Plan: Continue Plan of Care Treatment Plan: Bed Mobility, Concurrent Therapy, Education, Functional Activity Kourtney, Functional Strength, Group Therapy, Gait, Safety, Therapeutic Exercise, Transfers Treatment Duration: Apr 03, 2021 Frequency: At least 5 of 7 days/Wk (IRF) Estimated Hrs Per Day: 1.5 hours per day Patient and/or Family Agrees t: Yes Safety Risks/Education Patient Education: Transfer Techniques, Correct Positioning, W/C Management, Safety Issues Teaching Recipient: Patient Teaching Methods: Demonstration, Discussion Response to Teaching: Reinforcement Needed Time/GCodes Time In: 0800 Time Out: 0900 Total Billed Treatment Time: 60 Total Billed Treatment 1 visit FA 60' co-treated for 60' ELAINE MINAYA PT Feb 22, 2021 08:56
[2021-02-22] MEDS ORDERED: CLOPIDOGREL 75 MG (PLAVIX) TABLET PO SCH (09:00)
[2021-02-22] MEDS: busPIRone 5 MG (BUSPAR) TAB PO SCH ×2 (09:05→20:35)
[2021-02-22] MEDS: SERTRALINE 100 MG (ZOLOFT) TAB PO SCH (09:05)
[2021-02-22] MEDS: APIXABAN 5 MG (ELIQUIS) TABLET PO SCH ×2 (09:05→20:35)
[2021-02-22] MEDS: PANTOPRAZOLE 40 MG (PROTONIX) TAB PO SCH ×2 (09:05→20:35)
[2021-02-22] MEDS: ASPIRIN 81 MG CHEW (CHILDREN'S ASA) PO SCH (09:05)
--- NOTE | 2021-02-22 10:44 | Individualized Plan of Care ---
Individualized Plan of Care Rehab Nursing IPOC Order Admission Date Feb 20, 2021 at 10:40 Current Orders Orders Admission Order(Inpt,Obs,Sdc) (02/20/21 10:13) Vital Signs: Per Unit Policy ( ,00 (02/20/21 10:13) Thien Viera (02/20/21 10:13) Sequential Compression Device .admit (02/20/21 10:13) English Adjunct Faculty-Inpt Rehab Con (02/20/21 10:13) Rehab Nursing Orders-Ipoc (02/20/21 10:13) Physical Therapy Rehab Orders (02/20/21 10:13) Occupational Therapy Rehab Ord (02/20/21 10:13) Speech Therapy Rehab Orders (02/20/21 10:13) Cbc With Automated Diff (02/21/21 06:00) Comprehensive Metabolic Panel (02/21/21 06:00) Precautions (Aru) (02/20/21 10:13) Rehab-Intensity Of Therapy (02/20/21 10:13) Initiate Admission Nursing Pro .admission (02/20/21 10:13) Alprazolam Tablet (Xanax Tablet) (02/20/21 10:15) Calcium Carbonate Chew Tablet (Antacid C (02/20/21 10:15) Diphenhydramine Tablet (Benadryl Tablet) (02/20/21 10:15) Docusate Sodium Capsule (Colace Capsule) (02/20/21 21:00) Docusate Sodium Capsule (Colace Capsule) (02/20/21 10:15) Bisacodyl Suppository (Dulcolax Supposit (02/20/21 10:15) Lactulose Oral Solution (Enulose Oral So (02/20/21 10:15) Na Phos/Na Biphos Enema (Fleet Enema Aleks (02/20/21 10:15) Guaifenesin/Codeine Syrup (Robitussin Ac (02/20/21 10:15) Loperamide Tablet (Imodium Tablet) (02/20/21 10:15) Melatonin Tablet (Melatonin Tablet) (02/20/21 10:15) Polyethylene Glycol Powder Pkt (Miralax (02/20/21 21:00) Ondansetron Oral Dissolve Tab (Zofran (02/20/21 10:15) Senna S Tablet (Senokot S Tablet) (02/20/21 21:00) Therapeutic Activity Goals: .PRN (02/20/21 10:13) Nursing Communication (Order) (02/20/21 ) Naloxone Injection (Narcan Injection) (02/20/21 10:15) Initiate Admission Nursing Pro .admission (02/20/21 10:13) Admission Arrival Bed Request (02/20/21 10:40) Patient Visit (02/20/21 ) Speech Sound Lang Comp (02/20/21 ) Treat. Speech/Lang/Voice (02/20/21 ) Dysphagia Evaluation Std (02/20/21 ) Dysphagia Therapy (02/20/21 ) Patient Visit (02/20/21 ) Pt Eval Low Complexity (02/20/21 ) Functional Activities, Ea 15 (02/20/21 ) Exercise Therap, Ea 15 Min (02/20/21 ) Acetaminophen Tablet/Caplet (Tylenol T (02/21/21 09:15) Aspirin Chewable Tablet (Baby Aspirin Ch (02/22/21 09:00) Buspirone Tablet (Buspar Tablet) (02/21/21 21:00) Pantoprazole Tablet (Protonix Tablet) (02/21/21 21:00) Senna S Tablet (Senokot S Tablet) (02/21/21 21:00) Sertraline Tablet (Zoloft Tablet) (02/22/21 09:00) Atorvastatin Tablet (Lipitor Tablet) (02/21/21 21:00) Patient Visit (02/21/21 ) Functional Activities, Ea 15 (02/21/21 ) Exercise Therap, Ea 15 Min (02/21/21 ) Apixaban Tablet (Eliquis Tablet) (02/21/21 21:00) Telemetry (02/21/21 16:55) Telemetry Nursing Assessment ( (02/21/21 16:55) Echo W Doppler/Color Flow (02/22/21 06:00) Ekg Tracing (02/22/21 06:00) Apixaban Tablet (Eliquis Tablet) (02/21/21 21:00) Ekg Tracing (02/21/21 17:29) Patient Visit (02/22/21 ) Functional Activities, Ea 15 (02/22/21 ) Exercise Therap, Ea 15 Min (02/22/21 ) General/Regular (02/22/21 Dinner) Rehab Nursing Orders: Ongoing Assess. of Cognitive Status, Ongoing Assess. of Function Status, Bladder Management, Bladder Scan, Bladder Training, Bowel Management, Bowel Training, Disease Management & Educaiton, DVT Prophylaxis, Fall Prevention, Fluid/Electrolyte/Nutrition Mgmt, Infection Prevention, Medication Management & Education, Management of Risks & Complications, Management of Skin Intergrity, Nutrition Management, Pain Management, Patient/Family Support Intensity of Therapy to be met Patient to be seen: Min.3h per day/5 of 7d PT IPOC Problem List: Activity Tolerance, Functional Strength, Safety, Balance, Gait, Transfer, Bed Mobility, ROM Treatment Plan: Continue Plan of Care Bed Mobility, Concurrent Therapy, Education, Functional Activity Kourtney, Functional Strength, Group Therapy, Gait, Safety, Therapeutic Exercise, Transfers Treatment Duration: Apr 03, 2021 Frequency: At least 5 of 7 days/Wk (IRF) Estimated Hrs Per Day: 1.5 hours per day OT IPOC Problems: Decreased Activ Tolerance, Decreased Safety Aware, Decreased UE Strength, Dependent Transfers, Impaired Bed Mobility, Impaired Cognition, Impaired Coordination, Impaired Funct Balance, Impaired I ADL's, Impaired Self- Care Skills, Restricted Funct UE ROM OT Treatment, Training and Edu: Yes Plan of Care: ADL Retraining, Functional Mobility, Group Exercise/Act as Ind, UE Funct Exercise/Act, UE Neuromus Re-Ed/Coord Treatment Duration: Mar 23, 2021 Frequency: At least 5 of 7 days/Wk (IRF) Estimated Hrs Per Day: 1.[address] IPOC Speech Therapy Treatment Plan: Continue Plan of Care Treatment Duration: Mar 06, 2021 Frequency: 4 times per week (Patient will receive skilled ST 4-5x per week) Estimated Hrs Per Day: .5 hour per day English Adjunct Faculty/Case Mgmt English Adjunct Faculty/Case Managemen: Discharge Planning Dietitian/Ball Sorter Dietitian/Ball Sorter to monitor nutritional status and make changes and/or recommendations as needed and work with speech pathology on dietary upgrades as the occur. Physician IPOC Medical Issues being managed closely and that require the 24 hour availability of a physician: Catastrophic stroke will require close monitoring from cardiology and internal medicine 27/01 due to high risk for decompensation Medical Issues: Bowel/Bladder Function, DVT Prophylaxis, Falls Precautions, Fluid/Electrolyte/Nutrition Balance, Infection Protection, Pain Management Brief Synthesis of Preadmission Screen, Post-Admission Evaluation, and Therapy Evaluations: PT and OT will focus on catastrophic flaccidity with the use of assistive devices in order to increase independence of ADLs in order to return back to independent living Medical Prognosis: Guarded Anticipated Length of Stay: 20 days SEAN MARTINS DO Feb 22, 2021 10:44
--- NOTE | 2021-02-22 10:44 | PM&R Progress Note ---
Subjective HPI/CC On Admission Date Seen by Provider: Feb 22, 2021 Time Seen by Provider: 10:45 Subjective/Events-last exam 02/22/2021: Pt appears to be very withdrawn No concerns at this current time Dr. Joshi did come in and change a few medications Pt denies any other issues 02/21/2021: Patient seems to be settling in well Just had a shower Expressive aphasia makes it difficult to communicate Remains a max assist No major issues Bowels are moving Incontinent at times Remains a feeder Cardiology consult appreciated Review of Systems General: Fatigue, Malaise Neurological: Weakness Objective Exam Vital Signs Vital Signs Date Time Temp Pulse Resp B/P (MAP) Pulse Ox O2 Delivery O2 Flow Rate FiO2 02/22/21 19:00 90 02/22/21 09:00 94 Room Air 02/22/21 08:00 36.4 18 125/69 (87) Capillary Refill : General Appearance: No Apparent Distress, WD/WN, Chronically ill, Obese HEENT: PERRL/EOMI, Normal ENT Inspection, Pharynx Normal Neck: Full Range of Motion, Normal Inspection, Non Tender, Supple, Carotid Bruit Respiratory: Chest Non Tender, Lungs Clear, Normal Breath Sounds, No Accessory Muscle Use, No Respiratory Distress Cardiovascular: Regular Rate, Rhythm, No Edema, No Gallop, No JVD, No Murmur, Normal Peripheral Pulses Gastrointestinal: Normal Bowel Sounds, No Organomegaly, No Pulsatile Mass, Non Tender, Soft Back: Normal Inspection, No CVA Tenderness, No Vertebral Tenderness Extremity: Normal Capillary Refill, Normal Inspection, Normal Range of Motion, Non Tender, No Calf Tenderness, No Pedal Edema Neurologic/Psychiatric: Alert, Oriented x3, Abnormal Gait, Depressed Affect, Facial Droop (Right), Motor Weakness (Right-sided weakness 1/5) Skin: Normal Color, Warm/Dry Lymphatic: No Adenopathy Results/Procedures Lab Patient resulted labs reviewed. FIM Transfers Therapy Code Descriptions/Definitions Functional [place] Measure: 0=Not Assessed/NA 4=Minimal Assistance 1=Total Assistance 5=Supervision or Setup 2=Maximal Assistance 6=Modified [place] 3=Moderate Assistance 7=Complete IndependenceSCALE: Activities may be completed with or without assistive devices. 8-Kjntvdewkj-dxatbju completes the activity by him/herself with no assistance from a helper. 5-Set-up or Clean-up Assistance-helper sets up or cleans up; patient completes activity. [place] assists only prior to or following the activity. 4-Supervision or Touching Assistance-helper provides verbal cues and/or touching/steadying and/or contact guard assistance as patient completes activity. Assistance may be provided throughout the activity or intermittently. 3-Partial/Moderate Assistance-helper does LESS THAN HALF the effort. [place] lifts, holds or supports trunk or limbs, but provides less than half the effort. 2-Substantial/Maximal Assistance-helper does MORE THAN HALF the effort. [place] lifts or holds trunk or limbs and provides more than half the effort. 4-Xsjcybrrh-zemsrf does ALL the effort. Patient does none of the effort to c omplete the activity. Or, the assistance of 2 or more helpers is required for the patient to complete the activity. If activity was not attempted, code reason: 7-Patient Refused. 9-Not Applicable-not attempted and the patient did not perform the activity before the current illness, exacerbation or injury. 10-Not Attempted due to Environmental Limitations-(lack of equipment, weather restraints, etc.). 88-Not Attempted due to Medical Conditions or Safety Concerns. Roll Left to Right (QC): 3 Sit to Lying (QC): 1 Sit to Stand (QC): 3 Chair/Byj-db-Ukczg Xfer(QC): 3 Car Transfer (QC): 1 Gait Training Does the Patient Walk?: No and Walking Goal IS indicated Walk 10 feet (QC): 1 Walk 50 ft with 2 Turns(QC): 1 Walk 150 ft (QC): 1 Walking 10ft/uneven surface-QC: 1 Wheelchair Training Does the Pt Use a Wheelchair?: Yes Distance: 0 Wheel 50 ft with 2 turns (QC): 3 Wheel 150 ft (QC): 3 Type of Wheelchair: Manual Stair Training 1 Step (curb) (QC): 1 4 Steps (QC): 1 12 Steps (QC): 1 Balance Picking up an Object (QC): 1 ADL-Treatment Eating (QC): 4 (Set up/supervision) Oral Hygiene (QC): 4 Bathing Location: L Arm Shower/Bathe Self (QC): 2 (Pt. able to wash chest after set up then required help desk assistant for all other areas. ) Upper Body Dressing (QC): 2 Lower Body Dressing (QC): 1 On/Off Footwear (QC): 2 Toileting Hygiene (QC): 1 Toilet Transfer (QC): 1 Assessment/Plan Assessment and Plan Assess & Plan/Chief Complaint Assessment: CVA with right-sided weakness Expressive aphasia Dysarthria Hypertension Chronic atrial fibrillation Oral anticoagulants maintained Obesity Plan: Continue current active meds Speech therapy PT and OT Aggressive therapy 02/21/2021: Appreciate cardiology consult Supportive care Aggressive physical therapy 02/22/2021: May need behavioral health Withdrawn today (1) CVA (cerebral vascular accident) Status: Acute (2) Atrial fibrillation (3) Hypertension (4) Obesity (5) Chronic anticoagulation (6) Expressive aphasia (7) Dysarthria (8) Right sided weakness SAEN MRATINS DO Feb 22, 2021 10:44
--- NOTE | 2021-02-22 14:54 | Physical Therapy Daily Note ---
PT Daily Note-Current Subjective Patient in bed pre tx, agrees to PT, has no complaints of pain. Appearance Patient in bed post tx with nurse call, phone, tray, all needs met. Mental Status Patient Orientation: Person, Unable to Assess, Non-Verbal/Aphasic Transfers SCALE: Activities may be completed with or without assistive devices. 9-Celrwuupni-utyaoqb completes the activity by him/herself with no assistance from a helper. 5-Set-up or Clean-up Assistance-helper sets up or cleans up; patient completes activity. [place] assists only prior to or following the activity. 4-Supervision or Touching Assistance-helper provides verbal cues and/or touching/steadying and/or contact guard assistance as patient completes activity. Assistance may be provided throughout the activity or intermittently. 3-Partial/Moderate Assistance-helper does LESS THAN HALF the effort. [place] lifts, holds or supports trunk or limbs, but provides less than half the effort. 2-Substantial/Maximal Assistance-helper does MORE THAN HALF the effort. [place] lifts or holds trunk or limbs and provides more than half the effort. 4-Aqbpjgvwd-yqslvt does ALL the effort. Patient does none of the effort to complete the activity. Or, the assistance of 2 or more helpers is required for the patient to complete the activity. If activity was not attempted, code reason: 7-Patient Refused. 9-Not Applicable-not attempted and the patient did not perform the activity before the current illness, exacerbation or injury. 10-Not Attempted due to Environmental Limitations-(lack of equipment, weather restraints, etc.). 88-Not Attempted due to Medical Conditions or Safety Concerns. Exercises Supine Ex: Ankle pumps (LLE only), Quad Set (LLE only), Glut sets, Heel Slides (AAROM on the right side), Short Arc Quads (AAROM on the right side), Straight leg raise (AAROM on the right side), Hip abd/add (AAROM on the right side) manual right ankle dorsiflexion stretch Treatments LE ROM and strengthening, stretching Assessment Current Status: Fair Progress seems to have slight improvement in AROM on the right side PT Short Term Goals Short Term Goals Time Frame: Mar 06, 2021 Roll Left & Right: 3 Sit to lyin Lying to sitting on side of be: 3 Sit to stand: 3 Chair/rww-vf-hghlz transfer: 3 Toilet transfer: 3 Car transfer: 3 Walk 10 feet: 2 Walk 50 feet with two turns: 2 Walk 150 feet: 2 Walking 10ft on uneven surface: 2 1 step (curb): 2 4 steps: 2 12 steps: 2 Picking up objects: 2 Wheel 50ft w/2 turns: 3 Wheel 150 feet: 3 Type: Manual PT Animal Shelter Clerk Goals Animal Shelter Clerk Goals PT Animal Shelter Clerk Goals Time Frame: Mar 20, 2021 Roll Left & Right (QC): 5 Sit to Lying (QC): 5 Lying-Sitting on Side/Bed(QC): 5 Sit to Stand (QC): 5 Chair/Wyj-xa-Dwndx Xfer(QC): 5 Toilet Transfer (QC): 5 Car Transfer (QC): 5 Does the Patient Walk: No and Walking Goal IS indicated Walk 10 feet (QC): 4 Walk 50ft with 2 Turns (QC): 4 Walk 150 ft (QC): 4 Walking 10ft on Uneven Surface: 4 1 Step (curb) (QC): 4 4 Steps (QC): 4 12 Steps (QC): 4 Picking up an Object (QC): 4 Does the Pt use WC or Scooter?: Yes Wheel 50 feet with 2 turns (QC: 5 Type: Manual Wheel 150 feet: 5 Type: Manual PT Plan Problem List Problem List: Activity Tolerance, Functional Strength, Safety, Balance, Gait, Transfer, Bed Mobility, ROM Treatment/Plan Treatment Plan: Continue Plan of Care Treatment Plan: Bed Mobility, Concurrent Therapy, Education, Functional Activity Kourtney, Functional Strength, Group Therapy, Gait, Safety, Therapeutic Exercise, Transfers Treatment Duration: Apr 03, 2021 Frequency: At least 5 of 7 days/Wk (IRF) Estimated Hrs Per Day: 1.5 hours per day Patient and/or Family Agrees t: Yes Safety Risks/Education Patient Education: Correct Positioning, Safety Issues Teaching Recipient: Patient Teaching Methods: Demonstration, Discussion Response to Teaching: Reinforcement Needed Time/GCodes Time In: 1430 Time Out: 1500 Total Billed Treatment Time: 30 Total Billed Treatment 1 visit EX 30' ELAINE MINAYA PT Feb 22, 2021 14:54
--- NOTE | 2021-02-22 15:20 | Progress Note - Cardiology ---
Cardiology SOAP Progress Note Subjective: No cp or palp or syncope or shortness of breath No n/v/d Objective: I&O/Vital Signs 02/22/21 02/22/21 02/22/21 02/22/21 07:00 08:00 09:00 13:00 Temp 36.4 Pulse 70 85 100 Resp 18 B/P (MAP) 125/69 (87) Pulse Ox 96 94 O2 Delivery Room Air Room Air Weight (Pounds): 236 Weight (Calculated Kilograms): 107.863845 Constitutional: other (appears intermittently confused) Respiratory: No accessory muscle use; other (good, bilateral air entry) Cardiovascular: regular rate-rhythm, S1 and S2 Gastrointestional: No tender; soft; No guarding, No rebound; audible bowel sounds Extremities: No swelling, No clubbing, No cyanosis Neurologic/Psychiatric: other (R-sided weakness (3-4/5 power in R upper and R lower limbs); dysphasia; intermittent confusion) Skin: No rash on exposed areas, No ulcerations on exposed areas Results/Procedures: Procedures Laboratory Tests 02/21/21 04:45 A/P: Assessment: H/o A Fib per Dr. 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 Cain's H&P) * Continue ASA. Plavix d/c'd * Tele to eval rhythm * ECG * Echo * Monitor labs ALEKS WAYNE MD FACP [facility] Feb 22, 2021 15:20
[2021-02-22 20:00] VITALS: BP 139/70
--- NOTE | 2021-02-23 05:46 | PM&R Progress Note ---
Subjective HPI/CC On Admission Date Seen by Provider: Feb 23, 2021 Time Seen by Provider: 06:00 Subjective/Events-last exam 02/23/2021: Slow progress RN had concerns of stroke extension due to nausea CT scan did not show any new stroke 02/22/2021: Pt appears to be very withdrawn No concerns at this current time Dr. Joshi did come in and change a few medications Pt denies any other issues 02/21/2021: Patient seems to be settling in well Just had a shower Expressive aphasia makes it difficult to communicate Remains a max assist No major issues Bowels are moving Incontinent at times Remains a feeder Cardiology consult appreciated Review of Systems General: Fatigue, Malaise Neurological: Weakness, Incoordination, Change in speech Objective Exam Vital Signs Vital Signs Date Time Temp Pulse Resp B/P (MAP) Pulse Ox O2 Delivery O2 Flow Rate FiO2 02/23/21 19:00 104 02/23/21 09:07 94 Room Air 02/23/21 07:36 36.9 18 140/66 (90) Capillary Refill : General Appearance: No Apparent Distress, WD/WN, Chronically ill, Obese HEENT: PERRL/EOMI, Normal ENT Inspection, Pharynx Normal Neck: Full Range of Motion, Normal Inspection, Non Tender, Supple, Carotid Bruit Respiratory: Chest Non Tender, Lungs Clear, Normal Breath Sounds, No Accessory Muscle Use, No Respiratory Distress Cardiovascular: Regular Rate, Rhythm, No Edema, No Gallop, No JVD, No Murmur, Normal Peripheral Pulses Gastrointestinal: Normal Bowel Sounds, No Organomegaly, No Pulsatile Mass, Non Tender, Soft Back: Normal Inspection, No CVA Tenderness, No Vertebral Tenderness Extremity: Normal Capillary Refill, Normal Inspection, Normal Range of Motion, Non Tender, No Calf Tenderness, No Pedal Edema Neurologic/Psychiatric: Alert, Oriented x3, Abnormal Gait, Depressed Affect, Facial Droop (Right), Motor Weakness (Right-sided weakness 1/5) Skin: Normal Color, Warm/Dry Lymphatic: No Adenopathy Results/Procedures Lab Patient resulted labs reviewed. FIM Transfers Therapy Code Descriptions/Definitions Functional [place] Measure: 0=Not Assessed/NA 4=Minimal Assistance 1=Total Assistance 5=Supervision or Setup 2=Maximal Assistance 6=Modified [place] 3=Moderate Assistance 7=Complete IndependenceSCALE: Activities may be completed with or without assistive devices. 1-Spioocpykb-rjjmkub completes the activity by him/herself with no assistance from a helper. 5-Set-up or Clean-up Assistance-helper sets up or cleans up; patient completes activity. [place] assists only prior to or following the activity. 4-Supervision or Touching Assistance-helper provides verbal cues and/or touching/steadying and/or contact guard assistance as patient completes activity. Assistance may be provided throughout the activity or intermittently. 3-Partial/Moderate Assistance-helper does LESS THAN HALF the effort. [place] lifts, holds or supports trunk or limbs, but provides less than half the effort. 2-Substantial/Maximal Assistance-helper does MORE THAN HALF the effort. [place] lifts or holds trunk or limbs and provides more than half the effort. 5-Fzlplcvok-qtmfck does ALL the effort. Patient does none of the effort to complete the activity. Or, the assistance of 2 or more helpers is required for the patient to complete the activity. If activity was not attempted, code reason: 7-Patient Refused. 9-Not Applicable-not attempted and the patient did not perform the activity before the current illness, exacerbation or injury. 10-Not Attempted due to Environmental Limitations-(lack of equipment, weather restraints, etc.). 88-Not Attempted due to Medical Conditions or Safety Concerns. Roll Left to Right (QC): 3 Sit to Lying (QC): 1 Sit to Stand (QC): 3 Chair/Vpl-rf-Upyvu Xfer(QC): 3 Car Transfer (QC): 1 Gait Training Does the Patient Walk?: No and Walking Goal IS indicated Walk 10 feet (QC): 1 Walk 50 ft with 2 Turns(QC): 1 Walk 150 ft (QC): 1 Walking 10ft/uneven surface-QC: 1 Wheelchair Training Does the Pt Use a Wheelchair?: Yes Distance: 0 Wheel 50 ft with 2 turns (QC): 3 Wheel 150 ft (QC): 3 Type of Wheelchair: Manual Stair Training 1 Step (curb) (QC): 1 4 Steps (QC): 1 12 Steps (QC): 1 Balance Picking up an Object (QC): 1 ADL-Treatment Eating (QC): 4 (Set up/supervision) Oral Hygiene (QC): 4 Bathing Location: L Arm Shower/Bathe Self (QC): 2 (Pt. able to wash chest after set up then required nurses assistant for all other areas. ) Upper Body Dressing (QC): 2 Lower Body Dressing (QC): 1 On/Off Footwear (QC): 2 Toileting Hygiene (QC): 1 Toilet Transfer (QC): 1 Assessment/Plan Assessment and Plan Assess & Plan/Chief Complaint Assessment: CVA with right-sided weakness Expressive aphasia Dysarthria Hypertension Chronic atrial fibrillation Oral anticoagulants maintained Obesity Plan: Continue current active meds Speech therapy PT and OT Aggressive therapy 02/21/2021: Appreciate cardiology consult Supportive care Aggressive physical therapy 02/22/2021: May need behavioral health Withdrawn today 02/23/2021: Slow recovery Reviewed CT scan (1) CVA (cerebral vascular accident) Status: Acute (2) Atrial fibrillation (3) Hypertension (4) Obesity (5) Chronic anticoagulation (6) Expressive aphasia (7) Dysarthria (8) Right sided weakness SEAN MARTINS DO Feb 23, 2021 05:46
[2021-02-23 07:36] VITALS: BP 140/66
[2021-02-23] MEDS: busPIRone 5 MG (BUSPAR) TAB PO SCH ×2 (08:12→20:32)
[2021-02-23] MEDS: APIXABAN 5 MG (ELIQUIS) TABLET PO SCH ×2 (08:12→20:32)
[2021-02-23] MEDS: SERTRALINE 100 MG (ZOLOFT) TAB PO SCH (08:12)
[2021-02-23] MEDS: DOCUSATE SODIUM 100 MG (COLACE) CAP PO SCH ×2 (08:12→20:32)
[2021-02-23] MEDS: PANTOPRAZOLE 40 MG (PROTONIX) TAB PO SCH ×2 (08:12→20:32)
[2021-02-23] MEDS: ASPIRIN 81 MG CHEW (CHILDREN'S ASA) PO SCH (08:12)
[2021-02-23] MEDS: SENNA W/DOCUSATE (SENOKOT S) TABLET PO SCH ×4 (08:12→21:00)
[2021-02-23] MEDS: polyethylene glycoL POWDER 17 GM (MIRALAX) PACK PO SCH ×2 (08:13→21:00)
--- NOTE | 2021-02-23 08:48 | Physical Therapy Daily Note ---
PT Daily Note-Current Subjective Patient sitting EOB pre tx, agrees to PT, has no complaints of pain, has already been working with OT. Will be co-treating with OT due to poor patient mobility, strength, endurance, right hemiparesis, coordinate UE and LE with activity, safety and reduce risk of fall. Appearance Patient in recliner post tx with nurse call, phone, tray, all needs met. Mental Status Patient Orientation: Person, Unable to Assess, Non-Verbal/Aphasic Transfers SCALE: Activities may be completed with or without assistive devices. 7-Kessgncxou-unnjysm completes the activity by him/herself with no assistance from a helper. 5-Set-up or Clean-up Assistance-helper sets up or cleans up; patient completes activity. [place] assists only prior to or following the activity. 4-Supervision or Touching Assistance-helper provides verbal cues and/or touching/steadying and/or contact guard assistance as patient completes activity. Assistance may be provided throughout the activity or intermittently. 3-Partial/Moderate Assistance-helper does LESS THAN HALF the effort. [place] lifts, holds or supports trunk or limbs, but provides less than half the effort. 2-Substantial/Maximal Assistance-helper does MORE THAN HALF the effort. [place] lifts or holds trunk or limbs and provides more than half the effort. 1-Zsmaukgzv-vjuzqj does ALL the effort. Patient does none of the effort to complete the activity. Or, the assistance of 2 or more helpers is required for the patient to complete the activity. If activity was not attempted, code reason: 7-Patient Refused. 9-Not Applicable-not attempted and the patient did not perform the activity befo re the current illness, exacerbation or injury. 10-Not Attempted due to Environmental Limitations-(lack of equipment, weather re straints, etc.). 88-Not Attempted due to Medical Conditions or Safety Concerns. Sit to Stand (QC): 3 Chair/Sqj-kn-Cfeoi Xfer(QC): 3 mod assist, cues for hand placement and safety Wheelchair Training Does the Pt Use a Wheelchair?: Yes Wheel 50 ft with 2 turns (QC): 3 Wheel 150 ft (QC): 3 Type of Wheelchair: Manual patient has trouble coordinating using both her left foot and arm to propel WC Exercises Patient stood in the parallel bars x4 with encouragement to lift left or right foot from floor to start preparing for ambulation. Patient has significant right side extensor tone. She will need a custom fit AFO with an ankle strap and possibly and heel wedge. Also performed RLE manual dorsiflexion stretch. Treatments PT performed transfers, ambulation, standing, stretching, WC mobility, OT performed UE positioning and safety during activity, assist with standing. Assessment Current Status: Fair Progress Slightly improved sit to stand, she has trouble sometimes with standing but cannot explain why. She may be having pain in her right ankle or calf due to her extensor tone with standing but she shakes her head no at this. She cannot explain where her pain is or even if it is pain. PT Short Term Goals Short Term Goals Time Frame: Mar 06, 2021 Roll Left & Right: 3 Sit to lyin Lying to sitting on side of be: 3 Sit to stand: 3 Chair/uza-rs-xjjiz transfer: 3 Toilet transfer: 3 Car transfer: 3 Walk 10 feet: 2 Walk 50 feet with two turns: 2 Walk 150 feet: 2 Walking 10ft on uneven surface: 2 1 step (curb): 2 4 steps: 2 12 steps: 2 Picking up objects: 2 Wheel 50ft w/2 turns: 3 Wheel 150 feet: 3 Type: Manual PT Correction Goals Correction Goals PT Warp Dyeing Tender Goals Time Frame: Mar 20, 2021 Roll Left & Right (QC): 5 Sit to Lying (QC): 5 Lying-Sitting on Side/Bed(QC): 5 Sit to Stand (QC): 5 Chair/Eiv-eb-Ximsb Xfer(QC): 5 Toilet Transfer (QC): 5 Car Transfer (QC): 5 Does the Patient Walk: No and Walking Goal IS indicated Walk 10 feet (QC): 4 Walk 50ft with 2 Turns (QC): 4 Walk 150 ft (QC): 4 Walking 10ft on Uneven Surface: 4 1 Step (curb) (QC): 4 4 Steps (QC): 4 12 Steps (QC): 4 Picking up an Object (QC): 4 Does the Pt use WC or Scooter?: Yes Wheel 50 feet with 2 turns (QC: 5 Type: Manual Wheel 150 feet: 5 Type: Manual PT Plan Problem List Problem List: Activity Tolerance, Functional Strength, Safety, Balance, Gait, Transfer, Bed Mobility, ROM Treatment/Plan Treatment Plan: Continue Plan of Care Treatment Plan: Bed Mobility, Concurrent Therapy, Education, Functional Activity Kourtney, Functional Strength, Group Therapy, Gait, Safety, Therapeutic Exercise, Transfers Treatment Duration: Apr 03, 2021 Frequency: At least 5 of 7 days/Wk (IRF) Estimated Hrs Per Day: 1.5 hours per day Patient and/or Family Agrees t: Yes Safety Risks/Education Patient Education: Transfer Techniques, Correct Positioning, W/C Management, Safety Issues Teaching Recipient: Patient Teaching Methods: Demonstration, Discussion Response to Teaching: Reinforcement Needed Time/GCodes Time In: 08 Time Out: 899 Total Billed Treatment Time: 60 Total Billed Treatment 1 visit FA 60' co-treated with OT from [id number] ELAINE MINAYA PT Feb 23, 2021 08:48
--- NOTE | 2021-02-23 10:09 | Occupational Ther Daily Note ---
OT Current Status-Daily Note Subjective Pt. alert in bed. Pt. asked to sit up in bed to eat breakfast before therapy. Pt. had a good night. Pt. agreed to therapy. Mental Status/Objective Patient Orientation: Person, Place, Non-Verbal/Aphasic, Time, Situation ADL-Treatment Pt. required set up to eat but fed by self. Pt. agreed to sponge bath in bed. Pt. rolled in bed to R side without assistance. Pt. initiated roll to L, required assistance to complete. Pt able to bathe chest and face by self after set up. Assist to cleanse rest of body. Max A for supine to sitting EOB. CGA to sit EOB. Mod A to don shirt using one handed technique. Max A to don/doff socks. PT/OT co-treat ([id number]), skills of 2 clinicians required to decrease fall risk, increase functional mobility and R UE/LE AROM. PT focusing on ambulation, transfers and standing while OT focusing on R UE placement during standing/ambulation and ADLs. Therapy Code Descriptions/Definitions Functional [place] Measure: 0=Not Assessed/NA 4=Minimal Assistance 1=Total Assistance 5=Supervision or Setup 2=Maximal Assistance 6=Modified [place] 3=Moderate Assistance 7=Complete IndependenceSCALE: Activities may be completed with or without assistive devices. 6-Ubhtrbmczm-rbhwgnr completes the activity by him/herself with no assistance from a helper. 5-Set-up or Clean-up Assistance-helper sets up or cleans up; patient completes activity. [place] assists only prior to or following the activity. 4-Supervision or Touching Assistance-helper provides verbal cues and/or touching/steadying and/or contact guard assistance as patient completes activity. Assistance may be provided throughout the activity or intermittently. 3-Partial/Moderate Assistance-helper does LESS THAN HALF the effort. [place] lifts, holds or supports trunk or limbs, but provides less than half the effort. 2-Substantial/Maximal Assistance-helper does MORE THAN HALF the effort. [place] lifts or holds trunk or limbs and provides more than half the effort. 3-Htiiftymt-vpojpx does ALL the effort. Patient does none of the effort to complete the activity. Or, the assistance of 2 or more helpers is required for the patient to complete the activity. If activity was not attempted, code reason: 7-Patient Refused. 9-Not Applicable-not attempted and the patient did not perform the activity before the current illness, exacerbation or injury. 10-Not Attempted due to Environmental Limitations-(lack of equipment, weather restraints, etc.). 88-Not Attempted due to Medical Conditions or Safety Concerns. Eating (QC): 4 (Supervision) Oral Hygiene (QC): 5 (Set up only) Bathing Location: Chest Shower/Bathe Self (QC): 2 Upper Body Dressing (QC): 2 Lower Body Dressing (QC): 1 On/Off Footwear: 2 Other Treatment Pt encouraged to propel w/c with L side, pt began to propel w/c then refused. Pt stood at parallel bars with Max A x2. ANNE assisted with positioning R UE and hips for upright stance. See PT note for standing/ambulation progress. After therapy, pt left in care of PT. All needs met. OT Short Term Goals Short Term Goals Time Frame: Mar 06, 2021 Toileting hygiene: 3 Shower/bathe self: 3 Upper body dressin Lower body dressin OT Care Home Goals [employer] Consultant Goals Time Frame: Mar 23, 2021 Eating (QC): 5 Oral Hygiene (QC): 5 Toileting Hygiene (QC): 4 Shower/Bathe Self (QC): 4 Upper Body Dressing (QC): 5 Lower Body Dressing (QC): 4 On/Off Footwear (QC): 4 Additional Goals: 1-Demonstrate ADL Tasks, 2-Verbalize Understanding, 3- ImproveStrength/Kourtney 1=Demonstrate adherence to instructed precautions during ADL tasks. 2=Patient will verbalize/demonstrate understanding of assistive devices/modifications for ADL. 3=Patient will improve strength/tolerance for activity to enable patient to perform ADL's. OT Education/Plan Problem List/Assessment Assessment: Decreased Activ Tolerance, Decreased Safety Aware, Decreased UE Strength, Dependent Transfers, Impaired Bed Mobility, Impaired Cognition, Impaired Coordination, Impaired Funct Balance, Impaired I ADL's, Impaired Self- Care Skills, Restricted Funct UE ROM Discharge Recommendations Plan/Recommendations: Continue POC Treatment Plan/Plan of Care Patient would benefit from OT for education, treatment and training to promote independence in ADL's, mobility, safety and/or upper extremity function for ADL's. Plan of Care: ADL Retraining, Functional Mobility, Group Exercise/Act as Ind, UE Funct Exercise/Act, UE Neuromus Re-Ed/Coord Treatment Duration: Mar 23, 2021 Frequency: At least 5 of 7 days/Wk (IRF) Estimated Hrs Per Day: 1.5 hours per day Rehab Potential: Fair Time/GCodes Start Time: 07:30 Stop Time: 08:30 Total Time Billed (hr/min): 60 Billed Treatment Time 1 visit-ADL 3 (40 min) NM 1 (20 min) co-treat PT [id number], individual 30- 08 IAN RAMIREZ Feb 23, 2021 10:09
[2021-02-23] MEDS ORDERED: ONDANSETRON 4 MG/2 ML (SDV) Z0FRAN ONE (12:39)
--- NOTE | 2021-02-23 13:24 | Diagnostic Imaging Report ---
PROCEDURE: CT head without contrast. TECHNIQUE: Multiple contiguous axial images were obtained through the brain without the use of intravenous contrast. Auto Exposure Controls were utilized during the CT exam to meet ALARA standards for radiation dose reduction. INDICATION: Stroke. COMPARISON: CTA head and neck 02/14/2021. FINDINGS: Examination limited by motion. Again seen is the infarction in the left frontal lobe. The degree of edema has decreased compared 02/14/2021. Serpiginous cortical hyperintensity consistent with cortical laminar necrosis. No evidence of hemorrhagic conversion. No significant mass effect. No CT evidence of a new territorial infarction. No hydrocephalus or extra-axial fluid collections. Osseous structures are grossly intact. Visualized paranasal sinuses and mastoids appear clear. IMPRESSION: Expected temporal evolution of the subacute infarct in the left frontal lobe. No acute intracranial CT findings. Dictated by: Dictated on workstation # [id number]
--- NOTE | 2021-02-23 14:02 | Speech Therapy Daily Note ---
Speech Daily Progress Note Subjective Date Seen by Provider: Feb 23, 2021 Time Seen by Provider: 11:40 Pt appeared to be uncomfortable upon SHADE BANDER arrival. Pt greeted patient, but indicated she was tired after questioning. Pt required encouragement for participation in therapy tasks. Objective Pt answered personal questions with yes/no. Pt shaking her head with discouragement that she is unable to communicate. She pointed to bed and and said she was uncomfortable. OT assisted with bed transfer. Pt denied any PO intake and appeared to be tired as she closed her eyes several times and shook her head during the therapy sesison. Phrase completion attempted, but pt was unable to complete. Yes/no questions completed with 70% accy. Pt verbalized nonsense words, but unable to appropriately verbalize wants/needs. Treatment Plan Continue Plan of Care Speech Short Term Goals Short Term Goals Short Term Goals 1) Patient will complete expressive language tasks of simple one word or simple phrase responses at 75% with minimal cues. 2) Patient will complete confrontational naming tasks of common everyday objects/pictures with 75% with minimal cues. 3) Patient will tolerate least restrictive diet level without s/s of aspiration at 90% or greater. 4) Patient will complete OME to improve oral intake and speech production with 90% or greater with minimal cues. Speech Engine Pilot Goals Correction Goals Patient will improve functional communication with verbal expression of wa nts/needs. Patient will maintain adequate nutrition/hydration via safe effective swallow function. Speech-Plan Treatment Plan Speech Therapy Treatment Plan: Continue Plan of Care Treatment Duration: Mar 06, 2021 Frequency: 4 times per week (Patient will receive skilled ST 4-5x per week) Estimated Hrs Per Day: .5 hour per day Rehab Potential: Fair Time Speech Therapy Time In: 11:40 Speech Therapy Time Out: 12:10 Billed Treatment Time 1, SLTS 30 MIN HAVEN HOLDEN Feb 23, 2021 14:02
--- NOTE | 2021-02-23 14:46 | Occupational Ther Daily Note ---
OT Current Status-Daily Note Subjective Pt very fatigued and wanting to get back into bed. 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 Pt c/o pain and frustration. Mental Status/Objective Patient Orientation: Person, Place, Non-Verbal/Aphasic, Time, Situation ADL-Treatment Therapy Code Descriptions/Definitions Functional [place] Measure: 0=Not Assessed/NA 4=Minimal Assistance 1=Total Assistance 5=Supervision or Setup 2=Maximal Assistance 6=Modified [place] 3=Moderate Assistance 7=Complete IndependenceSCALE: Activities may be completed with or without assistive devices. 5-Healjsrcyr-ucqrlzu completes the activity by him/herself with no assistance from a helper. 5-Set-up or Clean-up Assistance-helper sets up or cleans up; patient completes activity. [place] assists only prior to or following the activity. 4-Supervision or Touching Assistance-helper provides verbal cues and/or touching/steadying and/or contact guard assistance as patient completes activity. Assistance may be provided throughout the activity or intermittently. 3-Partial/Moderate Assistance-helper does LESS THAN HALF the effort. Kite lifts, holds or supports trunk or limbs, but provides less than half the effort. 2-Substantial/Maximal Assistance-helper does MORE THAN HALF the effort. Kite lifts or holds trunk or limbs and provides more than half the effort. 9-Xzvrcnfmn-fdmmly does ALL the effort. Patient does none of the effort to complete the activity. Or, the assistance of 2 or more helpers is required for the patient to complete the activity. If activity was not attempted, code reason: 7-Patient Refused. 9-Not Applicable-not attempted and the patient did not perform the activity before the current illness, exacerbation or injury. 10-Not Attempted due to Environmental Limitations-(lack of equipment, weather restraints, etc.). 88-Not Attempted due to Medical Conditions or Safety Concerns. Other Treatment Max A for transfer from recliner to bed. Attempted first time and pt's B LE's buckled and had to sit back into chair. Able to transfer 2nd time with max A. Max A x2 for EOB to supine. Pt then began to shake, covered pt with multiple blankets. Pt then began to gag and vomit. Pt's HOB elevated to prevent any aspiration. Nrsg called and BP taken, 159/74. Made pt comfortable, slightly lying on R side with HOB elevated. Nrsg continuing to work with pt. Call light in reach, nrsg in room. OT Short Term Goals Short Term Goals Time Frame: Mar 06, 2021 Toileting hygiene: 3 Shower/bathe self: 3 Upper body dressin Lower body dressin OT [employer] Specialist Goals Skilled Nursing Goals Time Frame: Mar 23, 2021 Eating (QC): 5 Oral Hygiene (QC): 5 Toileting Hygiene (QC): 4 Shower/Bathe Self (QC): 4 Upper Body Dressing (QC): 5 Lower Body Dressing (QC): 4 On/Off Footwear (QC): 4 Additional Goals: 1-Demonstrate ADL Tasks, 2-Verbalize Understanding, 3- ImproveStrength/Kourtney 1=Demonstrate adherence to instructed precautions during ADL tasks. 2=Patient will verbalize/demonstrate understanding of assistive devices/modifi cations for ADL. 3=Patient will improve strength/tolerance for activity to enable patient to perform ADL's. OT Education/Plan Problem List/Assessment Assessment: Decreased Activ Tolerance, Impaired Bed Mobility Discharge Recommendations Plan/Recommendations: Continue POC Treatment Plan/Plan of Care Patient would benefit from OT for education, treatment and training to promote independence in ADL's, mobility, safety and/or upper extremity function for ADL's. Plan of Care: ADL Retraining, Functional Mobility, Group Exercise/Act as Ind, UE Funct Exercise/Act, UE Neuromus Re-Ed/Coord Treatment Duration: Mar 23, 2021 Frequency: At least 5 of 7 days/Wk (IRF) Estimated Hrs Per Day: 1.5 hours per day Rehab Potential: Fair Time/GCodes Start Time: 12:15 Stop Time: 12:45 Total Time Billed (hr/min): 30 Billed Treatment Time 1 visit-FA 2 (30 min) IAN RAMIREZ Feb 23, 2021 14:46
[2021-02-23 20:00] VITALS: BP 115/76
[2021-02-23] MEDS: MELATONIN 3 MG TABLET PO PRN (20:32)
[2021-02-23] MEDS: ONDANSETRON 4 MG/2 ML (SDV) Z0FRAN IVP PRN (20:48)
[2021-02-24 06:16] LABS: BASOPHILS # (AUTO) 0.1 10^3/uL (0.0-0.1); BASOPHILS % (AUTO) 1 % (0-10); EOSINOPHILS # (AUTO) 0.1 10^3/uL (0.0-0.3); EOSINOPHILS % (AUTO) 1 % (0-10); HEMATOCRIT 43 % (35-52); HEMOGLOBIN 13.1 g/dL (11.5-16.0); LYMPHOCYTES # (AUTO) 2.3 10^3/uL (1.0-4.0); LYMPHOCYTES % (AUTO) 21 % (12-44); MEAN CORPUSCULAR HEMOGLOBIN 28 pg (25-34); MEAN CORPUSCULAR HGB CONC 31 g/dL (32-36); MEAN CORPUSCULAR VOLUME 92 fL (80-99); MEAN PLATELET VOLUME 9.2 fL (9.0-12.2); MONOCYTES # (AUTO) 0.8 10^3/uL (0.0-1.0); MONOCYTES % (AUTO) 7 % (0-12); NEUTROPHILS # (AUTO) 7.8 10^3/uL (1.8-7.8); NEUTROPHILS % (AUTO) 71 % (42-75); PLATELET COUNT 325 10^3/uL (130-400)
--- NOTE | 2021-02-24 06:21 | PM&R Progress Note ---
Subjective HPI/CC On Admission Date Seen by Provider: Feb 24, 2021 Time Seen by Provider: 06:20 Subjective/Events-last exam 02/24/21: Patient slow recovery Minimal conversing UTI dx via straight cath when nurses reported malodorous urine Cefepime maintained 02/23/2021: Slow progress RN had concerns of stroke extension due to nausea CT scan did not show any new stroke 02/22/2021: Pt appears to be very withdrawn No concerns at this current time Dr. Joshi did come in and change a few medications Pt denies any other issues 02/21/2021: Patient seems to be settling in well Just had a shower Expressive aphasia makes it difficult to communicate Remains a max assist No major issues Bowels are moving Incontinent at times Remains a feeder Cardiology consult appreciated Review of Systems General: Fatigue Neurological: Weakness, Incoordination, Change in speech Focused Exam Lactate Level 02/24/21 11:20: Lactic Acid Level 1.35 Objective Exam Vital Signs Vital Signs Date Time Temp Pulse Resp B/P (MAP) Pulse Ox O2 Delivery O2 Flow Rate FiO2 02/24/21 12:59 71 02/24/21 09:00 94 Room Air 02/24/21 07:30 37.0 16 122/58 (79) Capillary Refill : General Appearance: No Apparent Distress, WD/WN, Chronically ill, Obese HEENT: PERRL/EOMI, Normal ENT Inspection, Pharynx Normal Neck: Full Range of Motion, Normal Inspection, Non Tender, Supple, Carotid Bruit Respiratory: Chest Non Tender, Lungs Clear, Normal Breath Sounds, No Accessory Muscle Use, No Respiratory Distress Cardiovascular: Regular Rate, Rhythm, No Edema, No Gallop, No JVD, No Murmur, Normal Peripheral Pulses Gastrointestinal: Normal Bowel Sounds, No Organomegaly, No Pulsatile Mass, Non Tender, Soft Back: Normal Inspection, No CVA Tenderness, No Vertebral Tenderness Extremity: Normal Capillary Refill, Normal Inspection, Normal Range of Motion, Non Tender, No Calf Tenderness, No Pedal Edema Neurologic/Psychiatric: Alert, Oriented x3, Abnormal Gait, Depressed Affect, Fa cial Droop (Right), Motor Weakness (Right-sided weakness 1/5) Skin: Normal Color, Warm/Dry Lymphatic: No Adenopathy Results/Procedures Lab Laboratory Tests 02/24/21 06:05 Patient resulted labs reviewed. FIM Transfers Therapy Code Descriptions/Definitions Functional [place] Measure: 0=Not Assessed/NA 4=Minimal Assistance 1=Total Assistance 5=Supervision or Setup 2=Maximal Assistance 6=Modified [place] 3=Moderate Assistance 7=Complete IndependenceSCALE: Activities may be completed with or without assistive devices. 1-Ignckkzjcb-krmdube completes the activity by him/herself with no assistance from a helper. 5-Set-up or Clean-up Assistance-helper sets up or cleans up; patient completes activity. [place] assists only prior to or following the activity. 4-Supervision or Touching Assistance-helper provides verbal cues and/or touching/steadying and/or contact guard assistance as patient completes activity. Assistance may be provided throughout the activity or intermittently. 3-Partial/Moderate Assistance-helper does LESS THAN HALF the effort. [place] lifts, holds or supports trunk or limbs, but provides less than half the effort. 2-Substantial/Maximal Assistance-helper does MORE THAN HALF the effort. [place] lifts or holds trunk or limbs and provides more than half the effort. 5-Qblgbtvkd-zpqxpw does ALL the effort. Patient does none of the effort to complete the activity. Or, the assistance of 2 or more helpers is required for the patient to complete the activity. If activity was not attempted, code reason: 7-Patient Refused. 9-Not Applicable-not attempted and the patient did not perform the activity before the current illness, exacerbation or injury. 10-Not Attempted due to Environmental Limitations-(lack of equipment, weather restraints, etc.). 88-Not Attempted due to Medical Conditions or Safety Concerns. Roll Left to Right (QC): 3 Sit to Lying (QC): 1 Sit to Stand (QC): 3 Chair/Pal-ri-Nhlzy Xfer(QC): 3 Car Transfer (QC): 1 Gait Training Does the Patient Walk?: No and Walking Goal IS indicated Walk 10 feet (QC): 1 Walk 50 ft with 2 Turns(QC): 1 Walk 150 ft (QC): 1 Walking 10ft/uneven surface-QC: 1 Wheelchair Training Does the Pt Use a Wheelchair?: Yes Distance: 0 Wheel 50 ft with 2 turns (QC): 3 Wheel 150 ft (QC): 3 Type of Wheelchair: Manual Stair Training 1 Step (curb) (QC): 1 4 Steps (QC): 1 12 Steps (QC): 1 Balance Picking up an Object (QC): 1 ADL-Treatment Eating (QC): 4 (Supervision) Oral Hygiene (QC): 5 (Set up only) Bathing Location: Chest Shower/Bathe Self (QC): 2 Upper Body Dressing (QC): 2 Lower Body Dressing (QC): 1 On/Off Footwear (QC): 2 Toileting Hygiene (QC): 1 Toilet Transfer (QC): 1 Assessment/Plan Assessment and Plan Assess & Plan/Chief Complaint Assessment: CVA with right-sided weakness Expressive aphasia Dysarthria Hypertension Chronic atrial fibrillation Oral anticoagulants maintained Obesity UTI 02/24/21 started Cefepime Plan: Continue current active meds Speech therapy PT and OT Aggressive therapy 02/21/2021: Appreciate cardiology consult Supportive care Aggressive physical therapy 02/22/2021: May need behavioral health Withdrawn today 02/23/2021: Slow recovery Reviewed CT scan 02/24/21: UTI treatment Normal [place] Monitor closely (1) CVA (cerebral vascular accident) Status: Acute (2) Atrial fibrillation (3) Hypertension (4) Obesity (5) Chronic anticoagulation (6) Expressive aphasia (7) Dysarthria (8) Right sided weakness SEAN MARTINS DO Feb 24, 2021 06:21
[2021-02-24 06:22] LABS: POTASSIUM 4.4 MMOL/L (3.6-5.0)
[2021-02-24 06:24] LABS: CALCIUM 10.1 MG/DL (8.5-10.1)
[2021-02-24 06:25] LABS: TOTAL PROTEIN 7.5 GM/DL (6.4-8.2)
[2021-02-24 06:26] LABS: BILIRUBIN,TOTAL 0.4 MG/DL (0.1-1.0)
[2021-02-24 06:28] LABS: CREATININE SERUM 0.85 MG/DL (0.60-1.30)
[2021-02-24 06:48] LABS: BILIRUBIN,URINE NEGATIVE (NEGATIVE); CLARITY,URINE TURBID; COLOR,URINE YELLOW; GLUCOSE, URINE (UA) NEGATIVE (NEGATIVE); KETONES,URINE NEGATIVE (NEGATIVE); LEUKOCYTE ESTERASE ,URINE 2+ (NEGATIVE); NITRITE,URINE NEGATIVE (NEGATIVE); PROTEIN,URINE 2+ (NEGATIVE)
[2021-02-24 06:57] LABS: BACTERIA,URINE LARGE /HPF; RBC,URINE >100 /HPF; WBC,URINE >100 /HPF
[2021-02-24 07:30] VITALS: BP 122/58
[2021-02-24] MEDS: ONDANSETRON 4 MG/2 ML (SDV) Z0FRAN IVP PRN ×2 (08:45→22:04)
[2021-02-24] MEDS: polyethylene glycoL POWDER 17 GM (MIRALAX) PACK PO SCH ×2 (09:00→22:26)
[2021-02-24] MEDS: DOCUSATE SODIUM 100 MG (COLACE) CAP PO SCH ×2 (09:00→22:04)
[2021-02-24] MEDS: SENNA W/DOCUSATE (SENOKOT S) TABLET PO SCH ×4 (09:00→22:28)
--- NOTE | 2021-02-24 10:05 | Physical Therapy Progress Note ---
Therapy Progress Note Nurse requests medical hold this date as patient isn't feeling well and has been nauseated most of the morning. Will attempt therapy again at next scheduled appointment. ABDIAS PIZARRO PT Feb 24, 2021 10:05
[2021-02-24] MEDS: busPIRone 5 MG (BUSPAR) TAB PO SCH ×2 (10:51→22:04)
[2021-02-24] MEDS: CEFEPIME INJECTION 1,000 MG in WATER (STERILE) FOR INJECTION 10 ML IV SCH ×3 (10:51→22:05)
[2021-02-24] MEDS: ASPIRIN 81 MG CHEW (CHILDREN'S ASA) PO SCH (10:51)
[2021-02-24] MEDS: PANTOPRAZOLE 40 MG (PROTONIX) TAB PO SCH ×2 (10:51→22:05)
[2021-02-24] MEDS: SERTRALINE 100 MG (ZOLOFT) TAB PO SCH (10:52)
[2021-02-24] MEDS: APIXABAN 5 MG (ELIQUIS) TABLET PO SCH ×2 (10:52→22:04)
--- NOTE | 2021-02-24 16:16 | Progress Note - Cardiology ---
Cardiology SOAP Progress Note Subjective: Does not report any symptoms Denies cp or palp or syncope or shortness of breath Objective: I&O/Vital Signs 02/24/21 02/24/21 02/24/21 02/24/21 07:00 07:30 09:00 12:59 Temp 37.0 Pulse 86 86 71 Resp 16 B/P (MAP) 122/58 (79) Pulse Ox 90 94 O2 Delivery Room Air Room Air Weight (Pounds): 236 Weight (Calculated Kilograms): 107.016002 Constitutional: other (appears intermittently confused) Respiratory: No accessory muscle use; other (good, bilateral air entry) Cardiovascular: regular rate-rhythm, S1 and S2 Gastrointestional: No tender; soft; No guarding, No rebound; audible bowel sounds Extremities: No swelling, No clubbing, No cyanosis Neurologic/Psychiatric: other (R-sided weakness (3-4/5 power in R upper and R lower limbs); dysphasia; intermittent confusion) Skin: No rash on exposed areas, No ulcerations on exposed areas Results/Procedures: Labs Laboratory Tests 02/24/21 06:05: White Blood Count 11.0, Red Blood Count 4.66, Hemoglobin 13.1, Hematocrit 43, Mean Corpuscular Volume 92, Mean Corpuscular Hemoglobin 28, Mean Corpuscular Hemoglobin Concent 31L, Red Cell Distribution Width 12.9, Platelet Count 325, Mean Platelet Volume 9.2, Immature Granulocyte % (Auto) 0, Neutrophils (%) (Auto) 71, Lymphocytes (%) (Auto) 21, Monocytes (%) (Auto) 7, Eosinophils (%) (Auto) 1, Basophils (%) (Auto) 1, Neutrophils # (Auto) 7.8, Lymphocytes # (Auto) 2.3, Monocytes # (Auto) 0.8, Eosinophils # (Auto) 0.1, Basophils # (Auto) 0.1, Immature Granulocyte # (Auto) 0.0, Sodium Level 140, Potassium Level 4.4, Ch loride Level 103, Carbon Dioxide Level 27, Anion Gap 10, Blood Urea Nitrogen 27H , Creatinine 0.85, Estimat Glomerular Filtration Rate 67, BUN/Creatinine Ratio 32, Glucose Level 107H, Calcium Level 10.1, Corrected Calcium 10.1, Total Bilirubin 0.4, Aspartate Amino Transf (AST/SGOT) 22, Alanine Aminotransferase (ALT/SGPT) 43, Alkaline Phosphatase 83, Total Protein 7.5, Albumin 4.0 02/24/21 06:40: Urine Color YELLOW, Urine Clarity TURBID, Urine pH 6.0, Urine Specific [place] 1.025H, Urine Protein 2+H, Urine Glucose (UA) NEGATIVE, Urine Ketones NEGATIVE, Urine Nitrite NEGATIVE, Urine Bilirubin NEGATIVE, Urine Urobilinogen 1.0, Urine Leukocyte Esterase 2+H, Urine RBC (Auto) 3+H, Urine RBC >100H, Urine WBC >100H, Urine Crystals NONE, Urine Bacteria LARGEH, Urine Casts NONE, Urine Mucus LARGEH , Urine Culture Indicated YES 02/24/21 11:20: Lactic Acid Level 1.35 Laboratory Tests 02/24/21 06:05 A/P: Assessment: H/o A Fib per Dr. 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 Cain's H&P) * Continue ASA. Plavix d/c'd * D/c tele * ECG * Monitor labs [facility]LEKS WAYNE [facility] Feb 24, 2021 16:16
[2021-02-24 20:00] VITALS: BP 124/60
[2021-02-24 20:38] VITALS: BP 124/60
[2021-02-24] MEDS: MELATONIN 3 MG TABLET PO PRN (22:04)
[2021-02-25] MEDS: CEFEPIME INJECTION 1,000 MG in WATER (STERILE) FOR INJECTION 10 ML IV SCH ×4 (05:13→22:04)
--- NOTE | 2021-02-25 05:42 | PM&R Progress Note ---
Subjective HPI/CC On Admission Date Seen by Provider: Feb 25, 2021 Time Seen by Provider: 05:45 Subjective/Events-last exam 02/25/21: Tolerating UTI treatment Proteus on UCx no sensitivity yet No pain Dependence is noted 02/24/21: Patient slow recovery Minimal conversing UTI dx via straight cath when nurses reported malodorous urine Cefepime maintained 02/23/2021: Slow progress RN had concerns of stroke extension due to nausea CT scan did not show any new stroke 02/22/2021: Pt appears to be very withdrawn No concerns at this current time Dr. Joshi did come in and change a few medications Pt denies any other issues 02/21/2021: Patient seems to be settling in well Just had a shower Expressive aphasia makes it difficult to communicate Remains a max assist No major issues Bowels are moving Incontinent at times Remains a feeder Cardiology consult appreciated Review of Systems General: Fatigue, Malaise Neurological: Weakness, Incoordination, Change in speech Focused Exam Lactate Level 02/24/21 11:20: Lactic Acid Level 1.35 Objective Exam Vital Signs Vital Signs Date Time Temp Pulse Resp B/P (MAP) Pulse Ox O2 Delivery O2 Flow Rate FiO2 02/25/21 09:00 Room Air 02/25/21 07:19 36.8 75 16 121/57 (78) 90 Capillary Refill : General Appearance: No Apparent Distress, WD/WN, Chronically ill, Obese HEENT: PERRL/EOMI, Normal ENT Inspection, Pharynx Normal Neck: Full Range of Motion, Normal Inspection, Non Tender, Supple, Carotid Bruit Respiratory: Chest Non Tender, Lungs Clear, Normal Breath Sounds, No Accessory Muscle Use, No Respiratory Distress Cardiovascular: Regular Rate, Rhythm, No Edema, No Gallop, No JVD, No Murmur, Normal Peripheral Pulses Gastrointestinal: Normal Bowel Sounds, No Organomegaly, No Pulsatile Mass, Non Tender, Soft Back: Normal Inspection, No CVA Tenderness, No Vertebral Tenderness Extremity: Normal Capillary Refill, Normal Inspection, Normal Range of Motion, Non Tender, No Calf Tenderness, No Pedal Edema Neurologic/Psychiatric: Alert, Oriented x3, Abnormal Gait, Depressed Affect, Facial Droop (Right), Motor Weakness (Right-sided weakness 1/5) Skin: Normal Color, Warm/Dry Lymphatic: No Adenopathy Results/Procedures Lab Patient resulted labs reviewed. FIM Transfers Therapy Code Descriptions/Definitions Functional [place] Measure: 0=Not Assessed/NA 4=Minimal Assistance 1=Total Assistance 5=Supervision or Setup 2=Maximal Assistance 6=Modified [place] 3=Moderate Assistance 7=Complete IndependenceSCALE: Activities may be completed with or without assistive devices. 2-Inrwjcmlxc-koaibmb completes the activity by him/herself with no assistance from a helper. 5-Set-up or Clean-up Assistance-helper sets up or cleans up; patient completes activity. [place] assists only prior to or following the activity. 4-Supervision or Touching Assistance-helper provides verbal cues and/or touching/steadying and/or contact guard assistance as patient completes activity. Assistance may be provided throughout the activity or intermittently. 3-Partial/Moderate Assistance-helper does LESS THAN HALF the effort. [place] lifts, holds or supports trunk or limbs, but provides less than half the effort. 2-Substantial/Maximal Assistance-helper does MORE THAN HALF the effort. [place] lifts or holds trunk or limbs and provides more than half the effort. 3-Pazampytj-ezipwu does ALL the effort. Patient does none of the effort to complete the activity. Or, the assistance of 2 or more helpers is required for the patient to complete the activity. If activity was not attempted, code reason: 7-Patient Refused. 9-Not Applicable-not attempted and the patient did not perform the activity before the current illness, exacerbation or injury. 10-Not Attempted due to Environmental Limitations-(lack of equipment, weather restraints, etc.). 88-Not Attempted due to Medical Conditions or Safety Concerns. Roll Left to Right (QC): 3 Sit to Lying (QC): 1 Sit to Stand (QC): 3 Chair/Kqd-zw-Yzekc Xfer(QC): 3 Car Transfer (QC): 1 Gait Training Does the Patient Walk?: No and Walking Goal IS indicated Walk 10 feet (QC): 1 Walk 50 ft with 2 Turns(QC): 1 Walk 150 ft (QC): 1 Walking 10ft/uneven surface-QC: 1 Wheelchair Training Does the Pt Use a Wheelchair?: Yes Distance: 0 Wheel 50 ft with 2 turns (QC): 3 Wheel 150 ft (QC): 3 Type of Wheelchair: Manual Stair Training 1 Step (curb) (QC): 1 4 Steps (QC): 1 12 Steps (QC): 1 Balance Picking up an Object (QC): 1 ADL-Treatment Eating (QC): 4 (Supervision) Oral Hygiene (QC): 5 (Set up only) Bathing Location: Chest Shower/Bathe Self (QC): 2 Upper Body Dressing (QC): 2 Lower Body Dressing (QC): 1 On/Off Footwear (QC): 2 Toileting Hygiene (QC): 1 Toilet Transfer (QC): 1 Assessment/Plan Assessment and Plan Assess & Plan/Chief Complaint Assessment: CVA with right-sided weakness Expressive aphasia Dysarthria Hypertension Chronic atrial fibrillation Oral anticoagulants maintained Obesity UTI 02/24/21 started Cefepime Plan: Continue current active meds Speech therapy PT and OT Aggressive therapy 02/21/2021: Appreciate cardiology consult Supportive care Aggressive physical therapy 02/22/2021: May need behavioral health Withdrawn today 02/23/2021: Slow recovery Reviewed CT scan 02/24/21: UTI treatment Normal [place] Monitor closely 02/25/21: UTI Tx Monitor closely (1) CVA (cerebral vascular accident) Status: Acute (2) Atrial fibrillation (3) Hypertension (4) Obesity (5) Chronic anticoagulation (6) Expressive aphasia (7) Dysarthria (8) Right sided weakness SEAN MARTINS DO Feb 25, 2021 05:42
[2021-02-25 07:19] VITALS: BP 121/57
[2021-02-25] MEDS: PANTOPRAZOLE 40 MG (PROTONIX) TAB PO SCH ×2 (09:25→22:03)
[2021-02-25] MEDS: ASPIRIN 81 MG CHEW (CHILDREN'S ASA) PO SCH (09:25)
[2021-02-25] MEDS: DOCUSATE SODIUM 100 MG (COLACE) CAP PO SCH ×2 (09:25→21:00)
[2021-02-25] MEDS: APIXABAN 5 MG (ELIQUIS) TABLET PO SCH ×2 (09:25→22:03)
[2021-02-25] MEDS: busPIRone 5 MG (BUSPAR) TAB PO SCH ×2 (09:25→22:03)
[2021-02-25] MEDS: SENNA W/DOCUSATE (SENOKOT S) TABLET PO SCH ×4 (09:25→21:00)
[2021-02-25] MEDS: SERTRALINE 100 MG (ZOLOFT) TAB PO SCH (09:25)
[2021-02-25] MEDS: polyethylene glycoL POWDER 17 GM (MIRALAX) PACK PO SCH ×2 (09:38→21:00)
--- NOTE | 2021-02-25 14:45 | Progress Note - Cardiology ---
Cardiology SOAP Progress Note Subjective: No cp or palp or syncope No shortness of breath Objective: I&O/Vital Signs 02/25/21 02/25/21 07:19 09:00 Temp 36.8 Pulse 75 Resp 16 B/P (MAP) 121/57 (78) Pulse Ox 90 O2 Delivery Room Air Room Air Weight (Pounds): 236 Weight (Calculated Kilograms): 107.199041 Constitutional: other (appears intermittently confused) Respiratory: No accessory muscle use; other (good, bilateral air entry) Cardiovascular: regular rate-rhythm, S1 and S2 Gastrointestional: No tender; soft; No guarding, No rebound; audible bowel sounds Extremities: No swelling, No clubbing, No cyanosis Neurologic/Psychiatric: other (R-sided weakness (3-4/5 power in R upper and R lower limbs); dysphasia; intermittent confusion) Skin: No rash on exposed areas, No ulcerations on exposed areas Results/Procedures: Labs Microbiology 02/24/21 Urine Culture - Preliminary, Resulted Proteus mirabilis Laboratory Tests 02/24/21 06:05 A/P: Assessment: H/o A Fib per Dr. 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 Cain's H&P) * Continue ASA. Plavix d/c'd * Monitor labs from time to time ALEKS WAYNE MD [facility] Feb 25, 2021 14:45
[2021-02-25 20:12] VITALS: BP 125/60
[2021-02-26] MEDS: CEFEPIME INJECTION 1,000 MG in WATER (STERILE) FOR INJECTION 10 ML IV SCH ×4 (05:46→23:11)
[2021-02-26 06:11] LABS: BASOPHILS # (AUTO) 0.1 10^3/uL (0.0-0.1); BASOPHILS % (AUTO) 1 % (0-10); EOSINOPHILS # (AUTO) 0.2 10^3/uL (0.0-0.3); EOSINOPHILS % (AUTO) 2 % (0-10); HEMATOCRIT 39 % (35-52); HEMOGLOBIN 12.2 g/dL (11.5-16.0); LYMPHOCYTES # (AUTO) 2.4 10^3/uL (1.0-4.0); LYMPHOCYTES % (AUTO) 32 % (12-44); MEAN CORPUSCULAR HEMOGLOBIN 28 pg (25-34); MEAN CORPUSCULAR HGB CONC 32 g/dL (32-36); MEAN CORPUSCULAR VOLUME 90 fL (80-99); MEAN PLATELET VOLUME 9.2 fL (9.0-12.2); MONOCYTES # (AUTO) 0.8 10^3/uL (0.0-1.0); MONOCYTES % (AUTO) 10 % (0-12); NEUTROPHILS # (AUTO) 4.3 10^3/uL (1.8-7.8); NEUTROPHILS % (AUTO) 56 % (42-75); PLATELET COUNT 350 10^3/uL (130-400); WHITE BLOOD COUNT 7.7 10^3/uL (4.3-11.0)
[2021-02-26 06:24] LABS: ALBUMIN 3.6 GM/DL (3.2-4.5); POTASSIUM 3.9 MMOL/L (3.6-5.0)
[2021-02-26 06:25] LABS: CALCIUM 9.7 MG/DL (8.5-10.1)
[2021-02-26 06:26] LABS: TOTAL PROTEIN 6.8 GM/DL (6.4-8.2)
[2021-02-26 06:28] LABS: BILIRUBIN,TOTAL 0.3 MG/DL (0.1-1.0)
[2021-02-26 06:30] LABS: CREATININE SERUM 0.73 MG/DL (0.60-1.30)
--- NOTE | 2021-02-26 06:58 | PM&R Progress Note ---
Subjective HPI/CC On Admission Date Seen by Provider: Feb 26, 2021 Time Seen by Provider: 09:00 Subjective/Events-last exam 02/26/2021: Patient doing pretty well No BM yet so will address Urine culture is pending but it is proteus Cefepime IV antibiotic maintained 02/25/21: Tolerating UTI treatment Proteus on UCx no sensitivity yet No pain Dependence is noted 02/24/21: Patient slow recovery Minimal conversing UTI dx via straight cath when nurses reported malodorous urine Cefepime maintained 02/23/2021: Slow progress RN had concerns of stroke extension due to nausea CT scan did not show any new stroke 02/22/2021: Pt appears to be very withdrawn No concerns at this current time Dr. Joshi did come in and change a few medications Pt denies any other issues 02/21/2021: Patient seems to be settling in well Just had a shower Expressive aphasia makes it difficult to communicate Remains a max assist No major issues Bowels are moving Incontinent at times Remains a feeder Cardiology consult appreciated Review of Systems General: Fatigue Neurological: Weakness, Change in speech Focused Exam Lactate Level 02/24/21 11:20: Lactic Acid Level 1.35 Objective Exam Vital Signs Vital Signs Date Time Temp Pulse Resp B/P (MAP) Pulse Ox O2 Delivery O2 Flow Rate FiO2 02/26/21 20:30 96 Room Air 02/26/21 19:21 36.4 86 18 157/69 (98) Capillary Refill : General Appearance: No Apparent Distress, WD/WN, Chronically ill, Obese HEENT: PERRL/EOMI, Normal ENT Inspection, Pharynx Normal Neck: Full Range of Motion, Normal Inspection, Non Tender, Supple, Carotid Bruit Respiratory: Chest Non Tender, Lungs Clear, Normal Breath Sounds, No Accessory Muscle Use, No Respiratory Distress Cardiovascular: Regular Rate, Rhythm, No Edema, No Gallop, No JVD, No Murmur, Normal Peripheral Pulses Gastrointestinal: Normal Bowel Sounds, No Organomegaly, No Pulsatile Mass, Non Tender, Soft Back: Normal Inspection, No CVA Tenderness, No Vertebral Tenderness Extremity: Normal Capillary Refill, Normal Inspection, Normal Range of Motion, Non Tender, No Calf Tenderness, No Pedal Edema Neurologic/Psychiatric: Alert, Oriented x3, Abnormal Gait, Depressed Affect, Fa cial Droop (Right), Motor Weakness (Right-sided weakness 1/5) Skin: Normal Color, Warm/Dry Lymphatic: No Adenopathy Results/Procedures Lab Laboratory Tests 02/26/21 05:35 Patient resulted labs reviewed. FIM Transfers Therapy Code Descriptions/Definitions Functional [place] Measure: 0=Not Assessed/NA 4=Minimal Assistance 1=Total Assistance 5=Supervision or Setup 2=Maximal Assistance 6=Modified [place] 3=Moderate Assistance 7=Complete IndependenceSCALE: Activities may be completed with or without assistive devices. 9-Dwwnybqkbn-pvpvlpk completes the activity by him/herself with no assistance from a helper. 5-Set-up or Clean-up Assistance-helper sets up or cleans up; patient completes activity. [place] assists only prior to or following the activity. 4-Supervision or Touching Assistance-helper provides verbal cues and/or touching/steadying and/or contact guard assistance as patient completes activity. Assistance may be provided throughout the activity or intermittently. 3-Partial/Moderate Assistance-helper does LESS THAN HALF the effort. [place] lifts, holds or supports trunk or limbs, but provides less than half the effort. 2-Substantial/Maximal Assistance-helper does MORE THAN HALF the effort. [place] lifts or holds trunk or limbs and provides more than half the effort. 0-Nkmcrwwug-acgcsk does ALL the effort. Patient does none of the effort to complete the activity. Or, the assistance of 2 or more helpers is required for the patient to complete the activity. If activity was not attempted, code reason: 7-Patient Refused. 9-Not Applicable-not attempted and the patient did not perform the activity before the current illness, exacerbation or injury. 10-Not Attempted due to Environmental Limitations-(lack of equipment, weather restraints, etc.). 88-Not Attempted due to Medical Conditions or Safety Concerns. Roll Left to Right (QC): 3 Sit to Lying (QC): 1 Sit to Stand (QC): 3 Chair/Geo-ov-Qapuj Xfer(QC): 3 Car Transfer (QC): 1 Gait Training Does the Patient Walk?: No and Walking Goal IS indicated Walk 10 feet (QC): 1 Walk 50 ft with 2 Turns(QC): 1 Walk 150 ft (QC): 1 Walking 10ft/uneven surface-QC: 1 Wheelchair Training Does the Pt Use a Wheelchair?: Yes Distance: 0 Wheel 50 ft with 2 turns (QC): 3 Wheel 150 ft (QC): 3 Type of Wheelchair: Manual Stair Training 1 Step (curb) (QC): 1 4 Steps (QC): 1 12 Steps (QC): 1 Balance Picking up an Object (QC): 1 ADL-Treatment Eating (QC): 4 (Supervision) Oral Hygiene (QC): 5 (Set up only) Bathing Location: Chest Shower/Bathe Self (QC): 2 Upper Body Dressing (QC): 2 Lower Body Dressing (QC): 1 On/Off Footwear (QC): 2 Toileting Hygiene (QC): 1 Toilet Transfer (QC): 1 Assessment/Plan Assessment and Plan Assess & Plan/Chief Complaint Assessment: CVA with right-sided weakness Expressive aphasia Dysarthria Hypertension Chronic atrial fibrillation Oral anticoagulants maintained Obesity UTI 02/24/21 started Cefepime Plan: Continue current active meds Speech therapy PT and OT Aggressive therapy 02/21/2021: Appreciate cardiology consult Supportive care Aggressive physical therapy 02/22/2021: May need behavioral health Withdrawn today 02/23/2021: Slow recovery Reviewed CT scan 02/24/21: UTI treatment Normal LA Monitor closely 02/25/21: UTI Tx Monitor closely 02/26/2021: Cefepime Await urine culture Bowel regimen (1) CVA (cerebral vascular accident) Status: Acute (2) Atrial fibrillation (3) Hypertension (4) Obesity (5) Chronic anticoagulation (6) Expressive aphasia (7) Dysarthria (8) Right sided weakness SEAN MARTINS DO Feb 26, 2021 06:58
[2021-02-26 08:00] VITALS: BP 141/68
--- NOTE | 2021-02-26 08:14 | Occupational Ther Daily Note ---
OT Current Status-Daily Note Subjective Pt. alert in bed eating breakfast. Pt. nodded that she felt better this morning than she had on Friday. Pt. agreed to therapy. Mental Status/Objective Patient Orientation: Person, Place, Non-Verbal/Aphasic, Time, Situation Attachments: IV ADL-Treatment Pt. Max A x2 from bed to rolling shower chair transfer. Pt. transported to large shower room via rolling shower chair, using shower chair with cutout and hand held shower completed. Pt. washed face independently, required verbal cue cleanse upper body. Assist given to bath B LE, anali area and buttocks while sitting on shower chair. Pt unaware of bowel movement, attempted to have pt push to have BM, pt unsuccessful. Reported to nrsg. Dependent with lower body dressing. Max A upper body dressing and footwear. Therapy Code Descriptions/Definitions Functional [place] Measure: 0=Not Assessed/NA 4=Minimal Assistance 1=Total Assistance 5=Supervision or Setup 2=Maximal Assistance 6=Modified [place] 3=Moderate Assistance 7=Complete IndependenceSCALE: Activities may be completed with or without assistive devices. 4-Ealujardej-dluskke completes the activity by him/herself with no assistance from a helper. 5-Set-up or Clean-up Assistance-helper sets up or cleans up; patient completes activity. [place] assists only prior to or following the activity. 4-Supervision or Touching Assistance-helper provides verbal cues and/or touching/steadying and/or contact guard assistance as patient completes activity. Assistance may be provided throughout the activity or intermittently. 3-Partial/Moderate Assistance-helper does LESS THAN HALF the effort. [place] lifts, holds or supports trunk or limbs, but provides less than half the effort. 2-Substantial/Maximal Assistance-helper does MORE THAN HALF the effort. [place] lifts or holds trunk or limbs and provides more than half the effort. 1-Jfdjfazpt-oasdns does ALL the effort. Patient does none of the effort to complete the activity. Or, the assistance of 2 or more helpers is required for the patient to complete the activity. If activity was not attempted, code reason: 7-Patient Refused. 9-Not Applicable-not attempted and the patient did not perform the activity before the current illness, exacerbation or injury. 10-Not Attempted due to Environmental Limitations-(lack of equipment, weather restraints, etc.). 88-Not Attempted due to Medical Conditions or Safety Concerns. Eating (QC): 3 (Set up) Bathing Location: Chest Shower/Bathe Self (QC): 3 (Set up, Max. A to cleanse all parts.) Upper Body Dressing (QC): 3 (Set up, helped thread arms through appropriate hol es in dress. ) Co-treat with PT([id number]), 2 clinicians required for skilled instruction and care to decrease fall risk, increase activity tolerance, functional mobility and R UE/LE movement. PT focusing on transfers, standing and LE strengthening while OT focusing on ADLs, functional movement and R UE placement. Pt appears frustrated and decrease motivation. Encouraged pt to stay positive and trust the rehab process. Other Treatment Pt. was transferred from rolling shower chair to w/c. Pt. self propelled w/c to gym. Pt. performed standing exercises at parallel 3x's, 2x's 1 min and 1x 30 sec. See PT notes for standing progress. Pt able to hold onto parallel bar with R UE after placed in correct position. After therapy, pt lying in bed with call light/phone in reach. All needs met in room. OT Short Term Goals Short Term Goals Time Frame: Mar 06, 2021 Toileting hygiene: 3 Shower/bathe self: 3 Upper body dressin Lower body dressin OT Senior Care Goals Store Protection Specialist Goals Time Frame: Mar 23, 2021 Eating (QC): 5 Oral Hygiene (QC): 5 Toileting Hygiene (QC): 4 Shower/Bathe Self (QC): 4 Upper Body Dressing (QC): 5 Lower Body Dressing (QC): 4 On/Off Footwear (QC): 4 Additional Goals: 1-Demonstrate ADL Tasks, 2-Verbalize Understanding, 3- ImproveStrength/Kourtney 1=Demonstrate adherence to instructed precautions during ADL tasks. 2=Patient will verbalize/demonstrate understanding of assistive de vices/modifications for ADL. 3=Patient will improve strength/tolerance for activity to enable patient to perform ADL's. OT Education/Plan Problem List/Assessment Assessment: Decreased Activ Tolerance, Decreased Safety Aware, Decreased UE Strength, Impaired Bed Mobility, Impaired Cognition, Impaired Coordination, Impaired Funct Balance, Impaired I ADL's, Impaired Self-Care Skills, Restricted Funct UE ROM Discharge Recommendations Plan/Recommendations: Continue POC Treatment Plan/Plan of Care Patient would benefit from OT for education, treatment and training to promote independence in ADL's, mobility, safety and/or upper extremity function for ADL's. Plan of Care: ADL Retraining, Functional Mobility, Group Exercise/Act as Ind, UE Funct Exercise/Act, UE Neuromus Re-Ed/Coord Treatment Duration: Mar 23, 2021 Frequency: At least 5 of 7 days/Wk (IRF) Estimated Hrs Per Day: 1.5 hours per day Rehab Potential: Fair Time/GCodes Start Time: 07:30 Stop Time: 09:00 Total Time Billed (hr/min): 90 Billed Treatment Time 1 visit-ADL 3 (45 min) NM 3 (45 min) co-treat with PT [id number], individual [phone] IAN RAMIREZ Feb 26, 2021 08:14
[2021-02-26] MEDS: ASPIRIN 81 MG CHEW (CHILDREN'S ASA) PO SCH (08:40)
[2021-02-26] MEDS: APIXABAN 5 MG (ELIQUIS) TABLET PO SCH ×2 (08:40→20:24)
[2021-02-26] MEDS: SENNA W/DOCUSATE (SENOKOT S) TABLET PO SCH ×4 (08:40→20:24)
[2021-02-26] MEDS: DOCUSATE SODIUM 100 MG (COLACE) CAP PO SCH ×2 (08:40→20:24)
[2021-02-26] MEDS: PANTOPRAZOLE 40 MG (PROTONIX) TAB PO SCH ×2 (08:40→20:25)
[2021-02-26] MEDS: SERTRALINE 100 MG (ZOLOFT) TAB PO SCH (08:40)
[2021-02-26] MEDS: busPIRone 5 MG (BUSPAR) TAB PO SCH ×2 (08:40→20:25)
[2021-02-26] MEDS: polyethylene glycoL POWDER 17 GM (MIRALAX) PACK PO SCH ×2 (08:41→20:20)
--- NOTE | 2021-02-26 08:57 | Physical Therapy Daily Note ---
PT Daily Note-Current Subjective Patient in shower room pre tx, agrees to PT, has no complaints of pain. Will be co-treating with OT due to poor patient mobility, strength, endurance, right hemiparesis, coordinate UE and LE during activity, safety and reduce risk of falls. Appearance Patient in bed post tx with nurse call, phone, tray, all needs met. Mental Status Patient Orientation: Person, Unable to Assess, Non-Verbal/Aphasic Transfers SCALE: Activities may be completed with or without assistive devices. 7-Hbqqrrityf-yvbepov completes the activity by him/herself with no assistance from a helper. 5-Set-up or Clean-up Assistance-helper sets up or cleans up; patient completes activity. [place] assists only prior to or following the activity. 4-Supervision or Touching Assistance-helper provides verbal cues and/or touching/steadying and/or contact guard assistance as patient completes activity. Assistance may be provided throughout the activity or intermittently. 3-Partial/Moderate Assistance-helper does LESS THAN HALF the effort. [place] lifts, holds or supports trunk or limbs, but provides less than half the effort. 2-Substantial/Maximal Assistance-helper does MORE THAN HALF the effort. [place] lifts or holds trunk or limbs and provides more than half the effort. 7-Kdxybwgau-unkhni does ALL the effort. Patient does none of the effort to complete the activity. Or, the assistance of 2 or more helpers is required for the patient to complete the activity. If activity was not attempted, code reason: 7-Patient Refused. 9-Not Applicable-not attempted and the patient did not perform the activity before the current illness, exacerbation or injury. 10-Not Attempted due to Environmental Limitations-(lack of equipment, weather restraints, etc.). 88-Not Attempted due to Medical Conditions or Safety Concerns. Roll Left & Right (QC): 2 Sit to Lying (QC): 2 Sit to Stand (QC): 2 Chair/Xzi-qu-Xohtq Xfer(QC): 2 Patient needs to stand from the shower chair a couple of times for cleaning from a BM and for drying off and dressing, max assist for this. Wheelchair Training Does the Pt Use a Wheelchair?: Yes Wheel 50 ft with 2 turns (QC): 2 Wheel 150 ft (QC): 2 Type of Wheelchair: Manual 150'x2, patient can assist with either her right foot or arm but cannot coordinate using both of them together Exercises Standing in parallel bars x3 for 1 min twice and then 30 seconds on the third time. Patient needs assist blocking right knee and supporting right ankle. Assessment Current Status: Poor Progress Patient has declined in functional mobility. Her balance is worse with sitting, leans more to the right side. She seems to have poor motivation and wants to give up quickly with standing. PT Short Term Goals Short Term Goals Time Frame: Mar 06, 2021 Roll Left & Right: 3 Sit to lyin Lying to sitting on side of be: 3 Sit to stand: 3 Chair/sms-yd-ytlej transfer: 3 Toilet transfer: 3 Car transfer: 3 Walk 10 feet: 2 Walk 50 feet with two turns: 2 Walk 150 feet: 2 Walking 10ft on uneven surface: 2 1 step (curb): 2 4 steps: 2 12 steps: 2 Picking up objects: 2 Wheel 50ft w/2 turns: 3 Wheel 150 feet: 3 Type: Manual PT Usp Goals Retail Business Analyst Goals PT Usp Goals Time Frame: Mar 20, 2021 Roll Left & Right (QC): 5 Sit to Lying (QC): 5 Lying-Sitting on Side/Bed(QC): 5 Sit to Stand (QC): 5 Chair/Pph-ec-[place] Xfer(QC): 5 Toilet Transfer (QC): 5 Car Transfer (QC): 5 Does the Patient Walk: No and Walking Goal IS indicated Walk 10 feet (QC): 4 Walk 50ft with 2 Turns (QC): 4 Walk 150 ft (QC): 4 Walking 10ft on Uneven Surface: 4 1 Step (curb) (QC): 4 4 Steps (QC): 4 12 Steps (QC): 4 Picking up an Object (QC): 4 Does the Pt use WC or Scooter?: Yes Wheel 50 feet with 2 turns (QC: 5 Type: Manual Wheel 150 feet: 5 Type: Manual PT Plan Problem List Problem List: Activity Tolerance, Functional Strength, Safety, Balance, Gait, Transfer, Bed Mobility, ROM Treatment/Plan Treatment Plan: Continue Plan of Care Treatment Plan: Bed Mobility, Concurrent Therapy, Education, Functional Activity Kourtney, Functional Strength, Group Therapy, Gait, Safety, Therapeutic Exercise, Transfers Treatment Duration: Apr 03, 2021 Frequency: At least 5 of 7 days/Wk (IRF) Estimated Hrs Per Day: 1.5 hours per day Patient and/or Family Agrees t: Yes Safety Risks/Education Patient Education: Transfer Techniques, Correct Positioning, W/C Management, Safety Issues Teaching Recipient: Patient Teaching Methods: Demonstration, Discussion Response to Teaching: Reinforcement Needed Time/GCodes Time In: 0800 Time Out: 0900 Total Billed Treatment Time: 60 Total Billed Treatment 1 visit FA 60' ELAINE MINAYA PT Feb 26, 2021 08:57
--- NOTE | 2021-02-26 09:08 | Speech Therapy Daily Note ---
Speech Daily Progress Note Subjective Date Seen by Provider: Feb 26, 2021 Time Seen by Provider: 00:30 Patient was resting in her bed. Nursing states patient does not like the thickened liquids. Explained why it is necessary at this time to continue them. Objective Patient answered simple y/n questions with 80% accuracy. Phrase x2 answer with moderate cues. Patient encouraged to complete task with moderate cues/repetiti ons. Assessment Assessment Current Status: Fair Progress Treatment Plan Continue Plan of Care Speech Short Term Goals Short Term Goals Short Term Goals 1) Patient will complete expressive language tasks of simple one word or simple phrase responses at 75% with minimal cues. 2) Patient will complete confrontational naming tasks of common everyday objects/pictures with 75% with minimal cues. 3) Patient will tolerate least restrictive diet level without s/s of aspiration at 90% or greater. 4) Patient will complete OME to improve oral intake and speech production with 90% or greater with minimal cues. Speech Soft Top Installer Goals Alf Goals Patient will improve functional communication with verbal expression of wants/needs. Patient will maintain adequate nutrition/hydration via safe effective swallow function. Speech-Plan Patient/Family Goals Patient/Family Goals: Patient plans on returning to her home where she lives with her . Treatment Plan Speech Therapy Treatment Plan: Continue Plan of Care Treatment Duration: Mar 06, 2021 Frequency: 4 times per week (Patient will receive skilled ST 4-5x per week) Estimated Hrs Per Day: .5 hour per day Rehab Potential: Fair Barriers to Learning: Patient's moderate expressive aphasia, right sided neglect Pt/Family Agrees to Plan: Yes Safety Risks/Education Teaching Recipient: Patient Teaching Methods: Demonstration, Discussion Response to Teaching: Verbalize Understanding, Return Demonstration Education Topics Provided: Continued safety, communication with y/n, phrases and pictures for conveying wants/needs, Continued safety of oral intake, currently meds taken with pudding Time Speech Therapy Time In: 09:00 Speech Therapy Time Out: 09:30 Total Billed Time: 30 Billed Treatment Time 1, SLTS, DYST HEENA Perla Feb 26, 2021 09:08
--- NOTE | 2021-02-26 09:30 | Progress Note - Cardiology ---
Cardiology SOAP Progress Note Subjective: No cp or palp or syncope or shortness breath No n/v/d Objective: I&O/Vital Signs 02/26/21 02/26/21 08:00 09:07 Temp 36.7 Pulse 75 Resp 20 B/P (MAP) 141/68 (92) Pulse Ox 94 O2 Delivery Room Air Room Air Weight (Pounds): 236 Weight (Calculated Kilograms): 107.499989 Constitutional: other (appears intermittently confused) Respiratory: No accessory muscle use; other (good, bilateral air entry) Cardiovascular: regular rate-rhythm, S1 and S2 Gastrointestional: No tender; soft; No guarding, No rebound; audible bowel sounds Extremities: No swelling, No clubbing, No cyanosis Neurologic/Psychiatric: other (R-sided weakness (3-4/5 power in R upper and R lower limbs); dysphasia; intermittent confusion) Skin: No rash on exposed areas, No ulcerations on exposed areas Results/Procedures: Labs Laboratory Tests 02/26/21 05:35: White Blood Count 7.7, Red Blood Count 4.31, Hemoglobin 12.2, Hematocrit 39, Mean Corpuscular Volume 90, Mean Corpuscular Hemoglobin 28, Mean Corpuscular Hemoglobin Concent 32, Red Cell Distribution Width 12.2, Platelet Count 350, Mean Platelet Volume 9.2, Immature Granulocyte % (Auto) 0, Neutrophils (%) (Auto) 56, Lymphocytes (%) (Auto) 32, Monocytes (%) (Auto) 10, Eosinophils (%) (Auto) 2, Basophils (%) (Auto) 1, Neutrophils # (Auto) 4.3, Lymphocytes # (Auto) 2.4, Monocytes # (Auto) 0.8, Eosinophils # (Auto) 0.2, Basophils # (Auto) 0.1, Immature Granulocyte # (Auto) 0.0, Sodium Level 139, Potassium Level 3.9, Chloride Level 102, Carbon Dioxide Level 29, Anion Gap 8, Blood Urea Nitrogen 18, Creatinine 0.73, Estimat Glomerular Filtration Rate 79, BUN/Creatinine Ratio 25, Glucose Level 99, Calcium Level 9.7, Corrected Calcium 10.0, Total Bilirubin 0.3, Aspartate Amino Transf (AST/SGOT) 17, Alanine Aminotransferase (ALT/SGPT) 30, Alkaline Phosphatase 75, Total Protein 6.8, Albumin 3.6 Microbiology 02/24/21 Urine Culture - Preliminary, Resulted Proteus mirabilis Laboratory Tests 02/26/21 05:35 A/P: Assessment: H/o A Fib per Dr. 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
--- NOTE | 2021-02-26 11:53 | Physical Therapy Daily Note ---
PT Daily Note-Current Subjective Patient in bed pre tx, agrees to PT, has no complaints of pain. Appearance Patient in bed post tx with nurse call, phone, tray, all needs met. Mental Status Patient Orientation: Person, Unable to Assess, Non-Verbal/Aphasic Transfers SCALE: Activities may be completed with or without assistive devices. 9-Rxmxduseza-uuflgme completes the activity by him/herself with no assistance from a helper. 5-Set-up or Clean-up Assistance-helper sets up or cleans up; patient completes activity. [place] assists only prior to or following the activity. 4-Supervision or Touching Assistance-helper provides verbal cues and/or touching/steadying and/or contact guard assistance as patient completes activity. Assistance may be provided throughout the activity or intermittently. 3-Partial/Moderate Assistance-helper does LESS THAN HALF the effort. [place] lifts, holds or supports trunk or limbs, but provides less than half the effort. 2-Substantial/Maximal Assistance-helper does MORE THAN HALF the effort. [place] lifts or holds trunk or limbs and provides more than half the effort. 8-Jutkpgizl-kmtwsx does ALL the effort. Patient does none of the effort to complete the activity. Or, the assistance of 2 or more helpers is required for the patient to complete the activity. If activity was not attempted, code reason: 7-Patient Refused. 9-Not Applicable-not attempted and the patient did not perform the activity before the current illness, exacerbation or injury. 10-Not Attempted due to Environmental Limitations-(lack of equipment, weather restraints, etc.). 88-Not Attempted due to Medical Conditions or Safety Concerns. Exercises Supine Ex: Ankle pumps (LLE only), Quad Set, Glut sets, Heel Slides (AAROM on the right side), Short Arc Quads (AAROM on the right side), Straight leg raise (AAROM on the right side), Hip abd/add (AAROM on the right side) Seated Therapy Exercises: Reaching activity right ankle dorsiflexion stretching Treatments LE exercise and ROM Assessment Current Status: Poor Progress Patient seems to have decreased motivation and increased right LE extensor tone. PT Short Term Goals Short Term Goals Time Frame: Mar 06, 2021 Roll Left & Right: 3 Sit to lyin Lying to sitting on side of be: 3 Sit to stand: 3 Chair/hjo-ua-iqczn transfer: 3 Toilet transfer: 3 Car transfer: 3 Walk 10 feet: 2 Walk 50 feet with two turns: 2 Walk 150 feet: 2 Walking 10ft on uneven surface: 2 1 step (curb): 2 4 steps: 2 12 steps: 2 Picking up objects: 2 Wheel 50ft w/2 turns: 3 Wheel 150 feet: 3 Type: Manual PT Police Sergeant Goals Jail Goals PT Jail Goals Time Frame: Mar 20, 2021 Roll Left & Right (QC): 5 Sit to Lying (QC): 5 Lying-Sitting on Side/Bed(QC): 5 Sit to Stand (QC): 5 Chair/Hnc-eq-Yaxbg Xfer(QC): 5 Toilet Transfer (QC): 5 Car Transfer (QC): 5 Does the Patient Walk: No and Walking Goal IS indicated Walk 10 feet (QC): 4 Walk 50ft with 2 Turns (QC): 4 Walk 150 ft (QC): 4 Walking 10ft on Uneven Surface: 4 1 Step (curb) (QC): 4 4 Steps (QC): 4 12 Steps (QC): 4 Picking up an Object (QC): 4 Does the Pt use WC or Scooter?: Yes Wheel 50 feet with 2 turns (QC: 5 Type: Manual Wheel 150 feet: 5 Type: Manual PT Plan Problem List Problem List: Activity Tolerance, Functional Strength, Safety, Balance, Gait, Transfer, Bed Mobility, ROM Treatment/Plan Treatment Plan: Continue Plan of Care Treatment Plan: Bed Mobility, Concurrent Therapy, Education, Functional Activity Kourtney, Functional Strength, Group Therapy, Gait, Safety, Therapeutic Exercise, Transfers Treatment Duration: Apr 03, 2021 Frequency: At least 5 of 7 days/Wk (IRF) Estimated Hrs Per Day: 1.5 hours per day Patient and/or Family Agrees t: Yes Safety Risks/Education Patient Education: Correct Positioning, Safety Issues Teaching Recipient: Patient Teaching Methods: Demonstration, Discussion Response to Teaching: Reinforcement Needed Time/GCodes Time In: 1145 Time Out: 1200 Total Billed Treatment Time: 15 Total Billed Treatment 1 visit EX 15' ELAINE MINAYA PT Feb 26, 2021 11:53
[2021-02-26 19:21] VITALS: BP 157/69
[2021-02-27] MEDS: CEFEPIME INJECTION 1,000 MG in WATER (STERILE) FOR INJECTION 10 ML IV SCH (05:14)
--- NOTE | 2021-02-27 07:31 | Occupational Ther Daily Note ---
OT Current Status-Daily Note Subjective Pt. was dozing in bed, woke easily. Pt. pleasant, agreed to therapy. When asked if Pt. had a good night, Pt. nodded yes. Mental Status/Objective Patient Orientation: Person, Place, Non-Verbal/Aphasic, Time, Situation ADL-Treatment Pt. rolled to R independently and held in place using bed rails. Max A supine to sit EOB, SBA sitting EOB. BM in progress Pt. transferred to [facility] Max A x2. Max A x2 to manipulate clothing and cleanse after BM. Max A x2 LE dressing. Max A x2 transfer from [facility] to w/c. Pt. propelled, with assist and verbal cues, w/c to gym. Pt. Max A. x2 transfer w/c to mat. Therapy Code Descriptions/Definitions Functional [place] Measure: 0=Not Assessed/NA 4=Minimal Assistance 1=Total Assistance 5=Supervision or Setup 2=Maximal Assistance 6=Modified [place] 3=Moderate Assistance 7=Complete IndependenceSCALE: Activities may be completed with or without assistive devices. 9-Mdkoqaggcq-qgntdpa completes the activity by him/herself with no assistance from a helper. 5-Set-up or Clean-up Assistance-helper sets up or cleans up; patient completes activity. [place] assists only prior to or following the activity. 4-Supervision or Touching Assistance-helper provides verbal cues and/or touching/steadying and/or contact guard assistance as patient completes activity. Assistance may be provided throughout the activity or intermittently. 3-Partial/Moderate Assistance-helper does LESS THAN HALF the effort. [place] lifts, holds or supports trunk or limbs, but provides less than half the effort. 2-Substantial/Maximal Assistance-helper does MORE THAN HALF the effort. [place] lifts or holds trunk or limbs and provides more than half the effort. 6-Cojswwrbf-xrfdwe does ALL the effort. Patient does none of the effort to complete the activity. Or, the assistance of 2 or more helpers is required for the patient to complete the activity. If activity was not attempted, code reason: 7-Patient Refused. 9-Not Applicable-not attempted and the patient did not perform the activity before the current illness, exacerbation or injury. 10-Not Attempted due to Environmental Limitations-(lack of equipment, weather restraints, etc.). 88-Not Attempted due to Medical Conditions or Safety Concerns. Eating (QC): 5 (Pt. was set up with meal, was able to manipulate food to assist with set up of own meal. ) Co-treat with PT([id number]), 2 clinicians required for skilled instruction and care to decrease fall risk, increase activity tolerance, functional mobility and R UE/LE movement. PT focusing on transfers, standing and LE strengthening while OT focusing on ADLs, functional movement and R UE placement. Pt appears frustrated and decrease motivation. Other Treatment Pt. retrieved meneses bags using L UE placed on L side of body then placing in basket on R side using L hand while WB R UE 16x's. Pt requires assistance to place R hand and maintain position for WB. Pt leaning forward/backward to work on core strength with mod A. Sit to stand from elevated surface requires max A x2. Pt fatigues quickly and takes multiple recovery breaks throughout session. Pt stated "NO" about completing anymore exercises or standing. After therapy, pt lying in bed with call light/phone in reach. All needs met in room. OT Short Term Goals Short Term Goals Time Frame: Mar 06, 2021 Toileting hygiene: 3 Shower/bathe self: 3 Upper body dressin Lower body dressin OT Residential Goals Gas Treater Goals Time Frame: Mar 23, 2021 Eating (QC): 5 Oral Hygiene (QC): 5 Toileting Hygiene (QC): 4 Shower/Bathe Self (QC): 4 Upper Body Dressing (QC): 5 Lower Body Dressing (QC): 4 On/Off Footwear (QC): 4 Additional Goals: 1-Demonstrate ADL Tasks, 2-Verbalize Understanding, 3- ImproveStrength/Kourtney 1=Demonstrate adherence to instructed precautions during ADL tasks. 2=Patient will verbalize/demonstrate understanding of assistive devices/modifications for ADL. 3=Patient will improve strength/tolerance for activity to enable patient to perform ADL's. OT Education/Plan Problem List/Assessment Assessment: Decreased Activ Tolerance, Decreased Safety Aware, Decreased UE Strength, Dependent Transfers, Impaired Bed Mobility, Impaired Cognition, Impaired Coordination, Impaired Funct Balance, Impaired I ADL's, Impaired Self- Care Skills, Restricted Funct UE ROM Discharge Recommendations Plan/Recommendations: Continue POC Treatment Plan/Plan of Care Patient would benefit from OT for education, treatment and training to promote independence in ADL's, mobility, safety and/or upper extremity function for ADL's. Plan of Care: ADL Retraining, Functional Mobility, Group Exercise/Act as Ind, UE Funct Exercise/Act, UE Neuromus Re-Ed/Coord Treatment Duration: Mar 23, 2021 Frequency: At least 5 of 7 days/Wk (IRF) Estimated Hrs Per Day: 1.5 hours per day Rehab Potential: Fair Time/GCodes Start Time: 07:30 Stop Time: 09:00 Total Time Billed (hr/min): 90 Billed Treatment Time 1 visit-ADL 3 (45 min) NM 3 (45 min) co-treat with PT [id number], individual [id number] IAN RAMIREZ Feb 27, 2021 07:31
[2021-02-27 08:00] VITALS: BP 138/63
--- NOTE | 2021-02-27 08:38 | PM&R Progress Note ---
Subjective HPI/CC On Admission Date Seen by Provider: Feb 27, 2021 Time Seen by Provider: 08:45 Subjective/Events-last exam 02/27/2021: Pt about the same Urine culture shows proteus, will initiated Amoxicillin 500 TID and DC the Cefepime Baclofen will be helpful for spasms of the right side Bowels are moving 02/26/2021: Patient doing pretty well No BM yet so will address Urine culture is pending but it is proteus Cefepime IV antibiotic maintained 02/25/21: Tolerating UTI treatment Proteus on UCx no sensitivity yet No pain Dependence is noted 02/24/21: Patient slow recovery Minimal conversing UTI dx via straight cath when nurses reported malodorous urine Cefepime maintained 02/23/2021: Slow progress RN had concerns of stroke extension due to nausea CT scan did not show any new stroke 02/22/2021: Pt appears to be very withdrawn No concerns at this current time Dr. Joshi did come in and change a few medications Pt denies any other issues 02/21/2021: Patient seems to be settling in well Just had a shower Expressive aphasia makes it difficult to communicate Remains a max assist No major issues Bowels are moving Incontinent at times Remains a feeder Cardiology consult appreciated Review of Systems General: Fatigue, Malaise Neurological: Weakness, Incoordination, Change in speech Focused Exam Lactate Level Objective Exam Vital Signs Vital Signs Date Time Temp Pulse Resp B/P (MAP) Pulse Ox O2 Delivery O2 Flow Rate FiO2 02/27/21 21:31 96 Room Air 02/27/21 20:26 36.8 77 16 132/66 (88) Capillary Refill : General Appearance: No Apparent Distress, WD/WN, Chronically ill, Obese HEENT: PERRL/EOMI, Normal ENT Inspection, Pharynx Normal Neck: Full Range of Motion, Normal Inspection, Non Tender, Supple, Carotid Bruit Respiratory: Chest Non Tender, Lungs Clear, Normal Breath Sounds, No Accessory Muscle Use, No Respiratory Distress Cardiovascular: Regular Rate, Rhythm, No Edema, No Gallop, No JVD, No Murmur, Normal Peripheral Pulses Gastrointestinal: Normal Bowel Sounds, No Organomegaly, No Pulsatile Mass, Non Tender, Soft Back: Normal Inspection, No CVA Tenderness, No Vertebral Tenderness Extremity: Normal Capillary Refill, Normal Inspection, Normal Range of Motion, Non Tender, No Calf Tenderness, No Pedal Edema Neurologic/Psychiatric: Alert, Oriented x3, Abnormal Gait, Depressed Affect, Facial Droop (Right), Motor Weakness (Right-sided weakness 1/5) Skin: Normal Color, Warm/Dry Lymphatic: No Adenopathy Results/Procedures Lab Patient resulted labs reviewed. FIM Transfers Therapy Code Descriptions/Definitions Functional [place] Measure: 0=Not Assessed/NA 4=Minimal Assistance 1=Total Assistance 5=Supervision or Setup 2=Maximal Assistance 6=Modified [place] 3=Moderate Assistance 7=Complete IndependenceSCALE: Activities may be completed with or without assistive devices. 6-Owmtehetdv-dxbvzfq completes the activity by him/herself with no assistance from a helper. 5-Set-up or Clean-up Assistance-helper sets up or cleans up; patient completes activity. [place] assists only prior to or following the activity. 4-Supervision or Touching Assistance-helper provides verbal cues and/or touching/steadying and/or contact guard assistance as patient completes activity. Assistance may be provided throughout the activity or intermittently. 3-Partial/Moderate Assistance-helper does LESS THAN HALF the effort. [place] lifts, holds or supports trunk or limbs, but provides less than half the effort. 2-Substantial/Maximal Assistance-helper does MORE THAN HALF the effort. [place] lifts or holds trunk or limbs and provides more than half the effort. 3-Itkpioyar-zjsvfv does ALL the effort. Patient does none of the effort to complete the activity. Or, the assistance of 2 or more helpers is required for the patient to complete the activity. If activity was not attempted, code reason: 7-Patient Refused. 9-Not Applicable-not attempted and the patient did not perform the activity before the current illness, exacerbation or injury. 10-Not Attempted due to Environmental Limitations-(lack of equipment, weather restraints, etc.). 88-Not Attempted due to Medical Conditions or Safety Concerns. Roll Left to Right (QC): 2 Sit to Lying (QC): 2 Sit to Stand (QC): 2 Chair/Mju-vj-Uhmfu Xfer(QC): 2 Car Transfer (QC): 1 Gait Training Does the Patient Walk?: No and Walking Goal IS indicated Walk 10 feet (QC): 1 Walk 50 ft with 2 Turns(QC): 1 Walk 150 ft (QC): 1 Walking 10ft/uneven surface-QC: 1 Wheelchair Training Does the Pt Use a Wheelchair?: Yes Distance: 0 Wheel 50 ft with 2 turns (QC): 2 Wheel 150 ft (QC): 2 Type of Wheelchair: Manual Stair Training 1 Step (curb) (QC): 1 4 Steps (QC): 1 12 Steps (QC): 1 Balance Picking up an Object (QC): 1 ADL-Treatment Eating (QC): 5 (Pt. was set up with meal, was able to manipulate food to assist with set up of own meal. ) Oral Hygiene (QC): 5 (Set up only) Bathing Location: Chest Shower/Bathe Self (QC): 3 (Set up, Max. A to cleanse all parts.) Upper Body Dressing (QC): 3 (Set up, helped thread arms through appropriate holes in dress. ) Lower Body Dressing (QC): 1 On/Off Footwear (QC): 2 Toileting Hygiene (QC): 1 Toilet Transfer (QC): 1 Assessment/Plan Assessment and Plan Assess & Plan/Chief Complaint Assessment: CVA with right-sided weakness Expressive aphasia Dysarthria Hypertension Chronic atrial fibrillation Oral anticoagulants maintained Obesity UTI 02/24/21 started Cefepime Plan: Continue current active meds Speech therapy PT and OT Aggressive therapy 02/21/2021: Appreciate cardiology consult Supportive care Aggressive physical therapy 02/22/2021: May need behavioral health Withdrawn today 02/23/2021: Slow recovery Reviewed CT scan 02/24/21: UTI treatment Normal LA Monitor closely 02/25/21: UTI Tx Monitor closely 02/26/2021: Cefepime Await urine culture Bowel regimen 02/27/2021: Change cefepime to amoxicillin per Proteus urine culture results Continue aggressive therapy (1) CVA (cerebral vascular accident) Status: Acute (2) Atrial fibrillation (3) Hypertension (4) Obesity (5) Chronic anticoagulation (6) Expressive aphasia (7) Dysarthria (8) Right sided weakness SEAN MARTINS DO Feb 27, 2021 08:38
--- NOTE | 2021-02-27 08:56 | Physical Therapy Daily Note ---
PT Daily Note-Current Subjective Patient on bedside commode pre tx, agrees to PT, has no complaints of pain. Will be co-treating with OT due to poor patient mobility, strength, endurance, right hemiparesis, severe fatigue with activity, coordinate UE and LE during activity, safety and reduce risk of falls. Appearance Patient in bed post tx with nurse call, phone, tray, all needs met. Mental Status Patient Orientation: Person, Unable to Assess, Non-Verbal/Aphasic Transfers SCALE: Activities may be completed with or without assistive devices. 9-Bvynqcgrkq-bpstdqy completes the activity by him/herself with no assistance from a helper. 5-Set-up or Clean-up Assistance-helper sets up or cleans up; patient completes activity. [place] assists only prior to or following the activity. 4-Supervision or Touching Assistance-helper provides verbal cues and/or touching/steadying and/or contact guard assistance as patient completes activity. Assistance may be provided throughout the activity or intermittently. 3-Partial/Moderate Assistance-helper does LESS THAN HALF the effort. [place] lifts, holds or supports trunk or limbs, but provides less than half the effort. 2-Substantial/Maximal Assistance-helper does MORE THAN HALF the effort. [place] lifts or holds trunk or limbs and provides more than half the effort. 2-Bsdfacmod-frjikr does ALL the effort. Patient does none of the effort to complete the activity. Or, the assistance of 2 or more helpers is required for the patient to complete the activity. If activity was not attempted, code reason: 7-Patient Refused. 9-Not Applicable-not attempted and the patient did not perform the activity bef ore the current illness, exacerbation or injury. 10-Not Attempted due to Environmental Limitations-(lack of equipment, weather r estraints, etc.). 88-Not Attempted due to Medical Conditions or Safety Concerns. Roll Left & Right (QC): 2 Sit to Lying (QC): 2 Sit to Stand (QC): 2 Chair/Fzg-hb-Hbssj Xfer(QC): 2 Toilet Transfer (QC): 2 From commode, patient stands with PT while OT cleans and dresses, then transfer to , all max assist. Wheelchair Training Does the Pt Use a Wheelchair?: Yes Wheel 50 ft with 2 turns (QC): 2 Wheel 150 ft (QC): 2 Type of Wheelchair: Manual 300', patient can either push with left arm or use left foot to propel but cannot coordinate both together Exercises Seated balance training, reaching and throwing meneses bags, core work with limits of stability training, sit to stand x5 from elevated therapy table Treatments PT worked on standing during toileting and dressing, transfers, balance training, sit to stands, OT worked on dressing, toileting, UE positioning and safety during activity, balance training Assessment Current Status: Poor Progress Patient complains of pain during tx but cant really pinpoint where it is. Patient continues to have decreasing motivation and participation. PT Short Term Goals Short Term Goals Time Frame: Mar 06, 2021 Roll Left & Right: 3 Sit to lyin Lying to sitting on side of be: 3 Sit to stand: 3 Chair/fma-qi-vrvrx transfer: 3 Toilet transfer: 3 Car transfer: 3 Walk 10 feet: 2 Walk 50 feet with two turns: 2 Walk 150 feet: 2 Walking 10ft on uneven surface: 2 1 step (curb): 2 4 steps: 2 12 steps: 2 Picking up objects: 2 Wheel 50ft w/2 turns: 3 Wheel 150 feet: 3 Type: Manual PT Retirement Goals Chef Passenger Vessel Goals PT Retirement Goals Time Frame: Mar 20, 2021 Roll Left & Right (QC): 5 Sit to Lying (QC): 5 Lying-Sitting on Side/Bed(QC): 5 Sit to Stand (QC): 5 Chair/Obz-ci-Junwe Xfer(QC): 5 Toilet Transfer (QC): 5 Car Transfer (QC): 5 Does the Patient Walk: No and Walking Goal IS indicated Walk 10 feet (QC): 4 Walk 50ft with 2 Turns (QC): 4 Walk 150 ft (QC): 4 Walking 10ft on Uneven Surface: 4 1 Step (curb) (QC): 4 4 Steps (QC): 4 12 Steps (QC): 4 Picking up an Object (QC): 4 Does the Pt use WC or Scooter?: Yes Wheel 50 feet with 2 turns (QC: 5 Type: Manual Wheel 150 feet: 5 Type: Manual PT Plan Problem List Problem List: Activity Tolerance, Functional Strength, Safety, Balance, Gait, Transfer, Bed Mobility, ROM Treatment/Plan Treatment Plan: Continue Plan of Care Treatment Plan: Bed Mobility, Concurrent Therapy, Education, Functional Activity Kourtney, Functional Strength, Group Therapy, Gait, Safety, Therapeutic Exercise, Transfers Treatment Duration: Apr 03, 2021 Frequency: At least 5 of 7 days/Wk (IRF) Estimated Hrs Per Day: 1.5 hours per day Patient and/or Family Agrees t: Yes Safety Risks/Education Patient Education: Transfer Techniques, Correct Positioning, W/C Management, Safety Issues Teaching Recipient: Patient Teaching Methods: Demonstration, Discussion Response to Teaching: Reinforcement Needed Time/GCodes Time In: 0800 Time Out: 0900 Total Billed Treatment Time: 60 Total Billed Treatment 1 visit EX 15' FA 45' ELAINE MINAYA PT Feb 27, 2021 08:56
[2021-02-27] MEDS: ASPIRIN 81 MG CHEW (CHILDREN'S ASA) PO SCH (09:02)
[2021-02-27] MEDS: APIXABAN 5 MG (ELIQUIS) TABLET PO SCH ×2 (09:02→20:49)
[2021-02-27] MEDS: DOCUSATE SODIUM 100 MG (COLACE) CAP PO SCH ×2 (09:02→20:49)
[2021-02-27] MEDS: PANTOPRAZOLE 40 MG (PROTONIX) TAB PO SCH ×2 (09:02→20:49)
[2021-02-27] MEDS: busPIRone 5 MG (BUSPAR) TAB PO SCH ×2 (09:02→20:49)
[2021-02-27] MEDS: SENNA W/DOCUSATE (SENOKOT S) TABLET PO SCH ×4 (09:02→20:49)
[2021-02-27] MEDS: SERTRALINE 100 MG (ZOLOFT) TAB PO SCH (09:02)
[2021-02-27] MEDS: polyethylene glycoL POWDER 17 GM (MIRALAX) PACK PO SCH ×2 (09:03→20:49)
[2021-02-27] MEDS: AMOXICILLIN 500 MG (POLYMOX) CAP PO SCH ×3 (10:26→20:49)
[2021-02-27] MEDS: BACLOFEN 10 MG (LIORESAL) TAB PO SCH ×2 (10:26→20:49)
--- NOTE | 2021-02-27 11:13 | Progress Note - Cardiology ---
Cardiology SOAP Progress Note Objective: I&O/Vital Signs 02/27/21 02/27/21 08:00 09:19 Temp 36.6 Pulse 82 Resp 20 B/P (MAP) 138/63 (88) Pulse Ox 94 O2 Delivery Room Air Room Air Weight (Pounds): 236 Weight (Calculated Kilograms): 107.250418 Constitutional: other (appears intermittently confused) Respiratory: No accessory muscle use; other (good, bilateral air entry) Cardiovascular: regular rate-rhythm, S1 and S2 Gastrointestional: No tender; soft; No guarding, No rebound; audible bowel sounds Extremities: No swelling, No clubbing, No cyanosis Neurologic/Psychiatric: other (R-sided weakness (3-4/5 power in R upper and R lower limbs); dysphasia; intermittent confusion) Skin: No rash on exposed areas, No ulcerations on exposed areas Results/Procedures: Labs Microbiology 02/24/21 Urine Culture - Final, Complete Proteus mirabilis A/P: Assessment: H/o A Fib per Dr. 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
--- NOTE | 2021-02-27 11:52 | Physical Therapy Daily Note ---
PT Daily Note-Current Subjective Patient in bed pre tx, agrees to PT, has no complaints of pain at rest. Agrees to get into recliner for lunch. Appearance Patient in recliner post tx with nurse call, phone, tray, all needs met. Mental Status Patient Orientation: Person, Unable to Assess, Non-Verbal/Aphasic Transfers SCALE: Activities may be completed with or without assistive devices. 7-Sgghvfeeud-tfjjjjs completes the activity by him/herself with no assistance from a helper. 5-Set-up or Clean-up Assistance-helper sets up or cleans up; patient completes activity. [place] assists only prior to or following the activity. 4-Supervision or Touching Assistance-helper provides verbal cues and/or touching/steadying and/or contact guard assistance as patient completes activity. Assistance may be provided throughout the activity or intermittently. 3-Partial/Moderate Assistance-helper does LESS THAN HALF the effort. [place] lifts, holds or supports trunk or limbs, but provides less than half the effort. 2-Substantial/Maximal Assistance-helper does MORE THAN HALF the effort. [place] lifts or holds trunk or limbs and provides more than half the effort. 5-[place]dux[place] does ALL the effort. Patient does none of the effort to complete the activity. Or, the assistance of 2 or more helpers is required for the patient to complete the activity. If activity was not attempted, code reason: 7-Patient Refused. 9-Not Applicable-not attempted and the patient did not perform the activity before the current illness, exacerbation or injury. 10-Not Attempted due to Environmental Limitations-(lack of equipment, weather restraints, etc.). 88-Not Attempted due to Medical Conditions or Safety Concerns. Lying to Sitting/Side of Bed(Q: 2 Sit to Stand (QC): 2 Chair/Yyg-ck-Vvokj Xfer(QC): 2 Exercises Seated Therapy Exercises: Ankle pumps, Long arc quads, Hip flexion, Hip abd/add Seated Reps: 20 (AAROM on the right side except ankle pumps were not performed on that side) right side manual dorsiflexion stretch Treatments bed mobility and transfers, LE ROM and stretching Assessment Current Status: Fair Progress improved participation with stretching, RLE extensor tone continues to be a problem especially at the ankle. She has a hard time getting her right heel on the floor and she could be at risk for an ankle injury without proper support during transfers. You can support her ankle during transfers using a foot on the lateral side of her ankle to prevent her ankle from turning during tra nsfers. PT Short Term Goals Short Term Goals Time Frame: Mar 06, 2021 Roll Left & Right: 3 Sit to lyin Lying to sitting on side of be: 3 Sit to stand: 3 Chair/uqp-jv-zptxu transfer: 3 Toilet transfer: 3 Car transfer: 3 Walk 10 feet: 2 Walk 50 feet with two turns: 2 Walk 150 feet: 2 Walking 10ft on uneven surface: 2 1 step (curb): 2 4 steps: 2 12 steps: 2 Picking up objects: 2 Wheel 50ft w/2 turns: 3 Wheel 150 feet: 3 Type: Manual PT Wool And Pelt Grader Goals Residential Goals PT Wool And Pelt Grader Goals Time Frame: Mar 20, 2021 Roll Left & Right (QC): 5 Sit to Lying (QC): 5 Lying-Sitting on Side/Bed(QC): 5 Sit to Stand (QC): 5 Chair/Cbc-kc-Mrtal Xfer(QC): 5 Toilet Transfer (QC): 5 Car Transfer (QC): 5 Does the Patient Walk: No and Walking Goal IS indicated Walk 10 feet (QC): 4 Walk 50ft with 2 Turns (QC): 4 Walk 150 ft (QC): 4 Walking 10ft on Uneven Surface: 4 1 Step (curb) (QC): 4 4 Steps (QC): 4 12 Steps (QC): 4 Picking up an Object (QC): 4 Does the Pt use WC or Scooter?: Yes Wheel 50 feet with 2 turns (QC: 5 Type: Manual Wheel 150 feet: 5 Type: Manual PT Plan Problem List Problem List: Activity Tolerance, Functional Strength, Safety, Balance, Gait, Transfer, Bed Mobility, ROM Treatment/Plan Treatment Plan: Continue Plan of Care Treatment Plan: Bed Mobility, Concurrent Therapy, Education, Functional Activity Kourtney, Functional Strength, Group Therapy, Gait, Safety, Therapeutic Exercise, Transfers Treatment Duration: Apr 03, 2021 Frequency: At least 5 of 7 days/Wk (IRF) Estimated Hrs Per Day: 1.5 hours per day Patient and/or Family Agrees t: Yes Safety Risks/Education Patient Education: Transfer Techniques, Correct Positioning, Safety Issues Teaching Recipient: Patient Teaching Methods: Demonstration, Discussion Response to Teaching: Reinforcement Needed Time/GCodes Time In: 1130 Time Out: 1200 Total Billed Treatment Time: 30 Total Billed Treatment 1 visit FA 15' EX 15' ELAINE MINAYA PT Feb 27, 2021 11:52
[2021-02-27 20:26] VITALS: BP 132/66
--- NOTE | 2021-02-28 07:26 | Occupational Ther Daily Note ---
OT Current Status-Daily Note Subjective Pt. sleeping in bed, slow to wake. Asked Pt. if feeling better today, nodded "yes" with enthusiasm. During therapy, pt stopped standing tasks and would not complete these any further. Mental Status/Objective Patient Orientation: Person, Place, Non-Verbal/Aphasic, Time, Situation ADL-Treatment Setup for breakfast, pt uses regular utensils to eat. Pt. rolled to R side and held with no assistance while cleansed/changed. Pt. Rolled L Min A to finish changing brief. Transferred Pt. from lying to sitting EOB Mod A. Pt. threaded L foot into pant leg sitting on EOB with close SBA, required Max A to thread R foot into pant leg, assist x2 to hike pants over hips when standing. Pt. Max A transfer to w/c. Oral hygiene set up, performed sitting at sink in w/c. Therapy Code Descriptions/Definitions Functional [place] Measure: 0=Not Assessed/NA 4=Minimal Assistance 1=Total Assistance 5=Supervision or Setup 2=Maximal Assistance 6=Modified [place] 3=Moderate Assistance 7=Complete IndependenceSCALE: Activities may be completed with or without assistive devices. 9-Qgcetksogf-zhuvknt completes the activity by him/herself with no assistance from a helper. 5-Set-up or Clean-up Assistance-helper sets up or cleans up; patient completes activity. [place] assists only prior to or following the activity. 4-Supervision or Touching Assistance-helper provides verbal cues and/or touching/steadying and/or contact guard assistance as patient completes activity. Assistance may be provided throughout the activity or intermittently. 3-Partial/Moderate Assistance-helper does LESS THAN HALF the effort. [place] lifts, holds or supports trunk or limbs, but provides less than half the effort. 2-Substantial/Maximal Assistance-helper does MORE THAN HALF the effort. [place] lifts or holds trunk or limbs and provides more than half the effort. 6-Smbxcvqax-mhxbvy does ALL the effort. Patient does none of the effort to complete the activity. Or, the assistance of 2 or more helpers is required for the patient to complete the activity. If activity was not attempted, code reason: 7-Patient Refused. 9-Not Applicable-not attempted and the patient did not perform the activity before the current illness, exacerbation or injury. 10-Not Attempted due to Environmental Limitations-(lack of equipment, weather restraints, etc.). 88-Not Attempted due to Medical Conditions or Safety Concerns. Eating (QC): 5 Oral Hygiene (QC): 5 Lower Body Dressing (QC): 1 On/Off Footwear: 2 Toileting Hygiene (QC): 1 Other Treatment Pt. taken to gym via w/c. With gravity eliminated and no resistance pt able to complete R UE shoulder horizontal abd/add sliding pillow case on smooth surface to promote use in functional tasks. Scapular protraction/retraction completed with max A, slight muscle movement noted. PT/OT co-treat ([id number]), 2 c linicians required for skilled instruction to increase functional mobility and decrease fall risk. PT focusing on standing, transfers and B LE strengthening while OT focusing on ADLs, functional mobility and R UE ROM. Pt in parallel bars to complete standing to promote transfers and ambulation. Pt completed 2 stands ~15 sec each, assist with R UE to grasp and wt bear in standing. See PT notes for progress. Pt then stated no and would not stand anymore. Working on increasing L UE strengthening and activity tolerance with w/c mobility throughout hospital. Pt requires cues to use L UE/LE to propel w/c. Pt left in care of PT. All needs met. OT Short Term Goals Short Term Goals Time Frame: Mar 06, 2021 Toileting hygiene: 3 Shower/bathe self: 3 Upper body dressin Lower body dressin OT Longterm Goals Longterm Goals Time Frame: Mar 23, 2021 Eating (QC): 5 Oral Hygiene (QC): 5 Toileting Hygiene (QC): 4 Shower/Bathe Self (QC): 4 Upper Body Dressing (QC): 5 Lower Body Dressing (QC): 4 On/Off Footwear (QC): 4 Additional Goals: 1-Demonstrate ADL Tasks, 2-Verbalize Understanding, 3- ImproveStrength/Kourtney 1=Demonstrate adherence to instructed precautions during ADL tasks. 2=Patient will verbalize/demonstrate understanding of assistive devices/modifications for ADL. 3=Patient will improve strength/tolerance for activity to enable patient to perform ADL's. OT Education/Plan Problem List/Assessment Assessment: Decreased Activ Tolerance, Decreased Safety Aware, Decreased UE Strength, Impaired Bed Mobility, Impaired Cognition, Impaired Coordination, Impaired Funct Balance, Impaired I ADL's, Impaired Self-Care Skills, Restricted Funct UE ROM Discharge Recommendations Plan/Recommendations: Continue POC Treatment Plan/Plan of Care Patient would benefit from OT for education, treatment and training to promote independence in ADL's, mobility, safety and/or upper extremity function for ADL's. Plan of Care: ADL Retraining, Functional Mobility, Group Exercise/Act as Ind, UE Funct Exercise/Act, UE Neuromus Re-Ed/Coord Treatment Duration: Mar 23, 2021 Frequency: At least 5 of 7 days/Wk (IRF) Estimated Hrs Per Day: 1.5 hours per day Rehab Potential: Fair Time/GCodes Start Time: 07:15 Stop Time: 08:45 Total Time Billed (hr/min): 90 Billed Treatment Time 1 visit-ADL 4 (60 min) NM 1 (15 min) FA 1 (15 min) Co-treat with PT [id number], individual [id number] IAN RAMIREZ Feb 28, 2021 07:26
[2021-02-28 08:00] VITALS: BP 164/77
--- NOTE | 2021-02-28 08:58 | Physical Therapy Daily Note ---
PT Daily Note-Current Subjective Patient in WC in gym pre tx, agrees to PT, has no complaints of pain at rest, will be co-treating with OT for part of tx due to poor patient mobility, strength, endurance, right hemiparesis, coordinate UE and LE during activity, safety and reduce risk of falls. Appearance Patient in recliner post tx with nurse call, phone, tray, all needs met, legs elevated. Mental Status Patient Orientation: Person, Unable to Assess, Non-Verbal/Aphasic Transfers SCALE: Activities may be completed with or without assistive devices. 7-Vpmmqhsntb-esjgcfs completes the activity by him/herself with no assistance from a helper. 5-Set-up or Clean-up Assistance-helper sets up or cleans up; patient completes activity. [place] assists only prior to or following the activity. 4-Supervision or Touching Assistance-helper provides verbal cues and/or touching/steadying and/or contact guard assistance as patient completes activity. Assistance may be provided throughout the activity or intermittently. 3-Partial/Moderate Assistance-helper does LESS THAN HALF the effort. [place] lifts, holds or supports trunk or limbs, but provides less than half the effort. 2-Substantial/Maximal Assistance-helper does MORE THAN HALF the effort. [place] lifts or holds trunk or limbs and provides more than half the effort. 1-Baqovvvzx-eyavun does ALL the effort. Patient does none of the effort to com plete the activity. Or, the assistance of 2 or more helpers is required for the patient to complete the activity. If activity was not attempted, code reason: 7-Patient Refused. 9-Not Applicable-not attempted and the patient did not perform the activity before the current illness, exacerbation or injury. 10-Not Attempted due to Environmental Limitations-(lack of equipment, weather restraints, etc.). 88-Not Attempted due to Medical Conditions or Safety Concerns. Sit to Stand (QC): 2 Chair/Blz-wc-Kmbrh Xfer(QC): 2 Patient stood in the parallel bars x3, but only for a few seconds each time. A heel wedge was fashioned for her to allow for better and safer weight bearing on her right leg. She refused to stand any more but couldn't explain why. Wheelchair Training Does the Pt Use a Wheelchair?: Yes Wheel 50 ft with 2 turns (QC): 2 Wheel 150 ft (QC): 2 Type of Wheelchair: Manual 500', patient uses her left arm or leg to help propel, she was able to coordinate using both UE and LE for a short time but wouldn't do it any more. Patient practiced going up and down a ramp a couple of times and did well pushing her WC backwards up the ramp using her left leg but going down the ramp she would not use her left hand to help brake and slow down but seemed to think it was kind of a fun ride and said "wheeee" and let the therapist guide her down the ramp. Exercises Seated Therapy Exercises: Ankle pumps, Long arc quads, Hip flexion Seated Reps: 20 (AAROM on the right LE, except for ankle pumps which she cannot do.) right manual dorsiflexion stretch Treatments PT performed transfers, standing, LE exercise and stretching, WC mobility, OT performed UE positioning and safety during activity, assist with transfers Assessment Current Status: Poor Progress patient has steadily decreasing motivation PT Short Term Goals Short Term Goals Time Frame: Mar 06, 2021 Roll Left & Right: 3 Sit to lyin Lying to sitting on side of be: 3 Sit to stand: 3 Chair/wio-wp-cbvli transfer: 3 Toilet transfer: 3 Car transfer: 3 Walk 10 feet: 2 Walk 50 feet with two turns: 2 Walk 150 feet: 2 Walking 10ft on uneven surface: 2 1 step (curb): 2 4 steps: 2 12 steps: 2 Picking up objects: 2 Wheel 50ft w/2 turns: 3 Wheel 150 feet: 3 Type: Manual PT Senior Care Goals Despatching And Receiving Clerk Goals PT Senior Care Goals Time Frame: Mar 20, 2021 Roll Left & Right (QC): 5 Sit to Lying (QC): 5 Lying-Sitting on Side/Bed(QC): 5 Sit to Stand (QC): 5 Chair/Caj-nf-Zqrsy Xfer(QC): 5 Toilet Transfer (QC): 5 Car Transfer (QC): 5 Does the Patient Walk: No and Walking Goal IS indicated Walk 10 feet (QC): 4 Walk 50ft with 2 Turns (QC): 4 Walk 150 ft (QC): 4 Walking 10ft on Uneven Surface: 4 1 Step (curb) (QC): 4 4 Steps (QC): 4 12 Steps (QC): 4 Picking up an Object (QC): 4 Does the Pt use WC or Scooter?: Yes Wheel 50 feet with 2 turns (QC: 5 Type: Manual Wheel 150 feet: 5 Type: Manual PT Plan Problem List Problem List: Activity Tolerance, Functional Strength, Safety, Balance, Gait, Transfer, Bed Mobility, ROM Treatment/Plan Treatment Plan: Continue Plan of Care Treatment Plan: Bed Mobility, Concurrent Therapy, Education, Functional Activity Kourtney, Functional Strength, Group Therapy, Gait, Safety, Therapeutic Exercise, Transfers Treatment Duration: Apr 03, 2021 Frequency: At least 5 of 7 days/Wk (IRF) Estimated Hrs Per Day: 1.5 hours per day Patient and/or Family Agrees t: Yes Safety Risks/Education Patient Education: Transfer Techniques, Correct Positioning, W/C Management, Safety Issues Teaching Recipient: Patient Teaching Methods: Demonstration, Discussion Response to Teaching: Reinforcement Needed Time/GCodes Time In: 0800 Time Out: 0900 Total Billed Treatment Time: 60 Total Billed Treatment 1 visit EX 10' FA 50' co-treat with OT from [id number] ELAINE MINAYA PT Feb 28, 2021 08:57
[2021-02-28] MEDS: ASPIRIN 81 MG CHEW (CHILDREN'S ASA) PO SCH (09:25)
[2021-02-28] MEDS: SERTRALINE 100 MG (ZOLOFT) TAB PO SCH (09:25)
[2021-02-28] MEDS: AMOXICILLIN 500 MG (POLYMOX) CAP PO SCH ×3 (09:25→21:08)
[2021-02-28] MEDS: APIXABAN 5 MG (ELIQUIS) TABLET PO SCH ×2 (09:26→21:09)
[2021-02-28] MEDS: busPIRone 5 MG (BUSPAR) TAB PO SCH ×2 (09:26→21:09)
[2021-02-28] MEDS: PANTOPRAZOLE 40 MG (PROTONIX) TAB PO SCH ×2 (09:26→21:09)
[2021-02-28] MEDS: BACLOFEN 10 MG (LIORESAL) TAB PO SCH ×2 (09:26→21:08)
[2021-02-28] MEDS: SENNA W/DOCUSATE (SENOKOT S) TABLET PO SCH ×4 (09:27→21:13)
[2021-02-28] MEDS: polyethylene glycoL POWDER 17 GM (MIRALAX) PACK PO SCH ×2 (09:27→19:33)
[2021-02-28] MEDS: DOCUSATE SODIUM 100 MG (COLACE) CAP PO SCH ×2 (09:27→21:09)
--- NOTE | 2021-02-28 12:25 | PM&R Progress Note ---
Subjective HPI/CC On Admission Date Seen by Provider: Feb 28, 2021 Time Seen by Provider: 10:00 Subjective/Events-last exam 02/28/2021: Pt doing really well Bowels moved yesterday Antibiotic tolerated of Amoxicillin TID Denies any significant issues but Baclofen is causing a little bit of drowsiness so will monitor that closely 02/27/2021: Pt about the same Urine culture shows proteus, will initiated Amoxicillin 500 TID and DC the Cefepime Baclofen will be helpful for spasms of the right side Bowels are moving 02/26/2021: Patient doing pretty well No BM yet so will address Urine culture is pending but it is proteus Cefepime IV antibiotic maintained 02/25/21: Tolerating UTI treatment Proteus on UCx no sensitivity yet No pain Dependence is noted 02/24/21: Patient slow recovery Minimal conversing UTI dx via straight cath when nurses reported malodorous urine Cefepime maintained 02/23/2021: Slow progress RN had concerns of stroke extension due to nausea CT scan did not show any new stroke 02/22/2021: Pt appears to be very withdrawn No concerns at this current time Dr. Joshi did come in and change a few medications Pt denies any other issues 02/21/2021: Patient seems to be settling in well Just had a shower Expressive aphasia makes it difficult to communicate Remains a max assist No major issues Bowels are moving Incontinent at times Remains a feeder Cardiology consult appreciated Review of Systems Neurological: Weakness, Incoordination, Change in speech Objective Exam Vital Signs Vital Signs Date Time Temp Pulse Resp B/P (MAP) Pulse Ox O2 Delivery O2 Flow Rate FiO2 02/28/21 21:00 96 Room Air 02/28/21 20:00 36.6 84 18 131/68 (89) Capillary Refill : General Appearance: No Apparent Distress, WD/WN, Chronically ill, Obese HEENT: PERRL/EOMI, Normal ENT Inspection, Pharynx Normal Neck: Full Range of Motion, Normal Inspection, Non Tender, Supple, Carotid Bruit Respiratory: Chest Non Tender, Lungs Clear, Normal Breath Sounds, No Accessory Muscle Use, No Respiratory Distress Cardiovascular: Regular Rate, Rhythm, No Edema, No Gallop, No JVD, No Murmur, Normal Peripheral Pulses Gastrointestinal: Normal Bowel Sounds, No Organomegaly, No Pulsatile Mass, Non Tender, Soft Back: Normal Inspection, No CVA Tenderness, No Vertebral Tenderness Extremity: Normal Capillary Refill, Normal Inspection, Normal Range of Motion, Non Tender, No Calf Tenderness, No Pedal Edema Neurologic/Psychiatric: Alert, Oriented x3, Abnormal Gait, Depressed Affect, Facial Droop (Right), Motor Weakness (Right-sided weakness 1/5) Skin: Normal Color, Warm/Dry Lymphatic: No Adenopathy Results/Procedures Lab Patient resulted labs reviewed. FIM Transfers Therapy Code Descriptions/Definitions Functional [place] Measure: 0=Not Assessed/NA 4=Minimal Assistance 1=Total Assistance 5=Supervision or Setup 2=Maximal Assistance 6=Modified [place] 3=Moderate Assistance 7=Complete IndependenceSCALE: Activities may be completed with or without assistive devices. 6-Yetcmeedbf-mvgnmpb completes the activity by him/herself with no assistance from a helper. 5-Set-up or Clean-up Assistance-helper sets up or cleans up; patient completes activity. [place] assists only prior to or following the activity. 4-Supervision or Touching Assistance-helper provides verbal cues and/or touching/steadying and/or contact guard assistance as patient completes activity . Assistance may be provided throughout the activity or intermittently. 3-Partial/Moderate Assistance-helper does LESS THAN HALF the effort. [place] lifts, holds or supports trunk or limbs, but provides less than half the effort. 2-Substantial/Maximal Assistance-helper does MORE THAN HALF the effort. [place] lifts or holds trunk or limbs and provides more than half the effort. 0-Ekcgdyyod-azhose does ALL the effort. Patient does none of the effort to complete the activity. Or, the assistance of 2 or more helpers is required for the patient to complete the activity. If activity was not attempted, code reason: 7-Patient Refused. 9-Not Applicable-not attempted and the patient did not perform the activity before the current illness, exacerbation or injury. 10-Not Attempted due to Environmental Limitations-(lack of equipment, weather restraints, etc.). 88-Not Attempted due to Medical Conditions or Safety Concerns. Roll Left to Right (QC): 2 Sit to Lying (QC): 2 Sit to Stand (QC): 2 Chair/Kel-ak-Nxxod Xfer(QC): 2 Car Transfer (QC): 1 Gait Training Does the Patient Walk?: No and Walking Goal IS indicated Walk 10 feet (QC): 1 Walk 50 ft with 2 Turns(QC): 1 Walk 150 ft (QC): 1 Walking 10ft/uneven surface-QC: 1 Wheelchair Training Does the Pt Use a Wheelchair?: Yes Distance: 0 Wheel 50 ft with 2 turns (QC): 2 Wheel 150 ft (QC): 2 Type of Wheelchair: Manual Stair Training 1 Step (curb) (QC): 1 4 Steps (QC): 1 12 Steps (QC): 1 Balance Picking up an Object (QC): 1 ADL-Treatment Eating (QC): 5 Oral Hygiene (QC): 5 Bathing Location: Chest Shower/Bathe Self (QC): 3 (Set up, Max. A to cleanse all parts.) Upper Body Dressing (QC): 3 (Set up, helped thread arms through appropriate holes in dress. ) Lower Body Dressing (QC): 1 On/Off Footwear (QC): 2 Toileting Hygiene (QC): 1 Toilet Transfer (QC): 1 Assessment/Plan Assessment and Plan Assess & Plan/Chief Complaint Assessment: CVA with right-sided weakness Expressive aphasia Dysarthria Hypertension Chronic atrial fibrillation Oral anticoagulants maintained Obesity UTI 02/24/21 started Cefepime Plan: Continue current active meds Speech therapy PT and OT Aggressive therapy 02/21/2021: Appreciate cardiology consult Supportive care Aggressive physical therapy 02/22/2021: May need behavioral health Withdrawn today 02/23/2021: Slow recovery Reviewed CT scan 02/24/21: UTI treatment Normal LA Monitor closely 02/25/21: UTI Tx Monitor closely 02/26/2021: Cefepime Await urine culture Bowel regimen 02/27/2021: Change cefepime to amoxicillin per Proteus urine culture results Continue aggressive therapy 02/28/2021: Due to 's health issues she will need to go to skilled (1) CVA (cerebral vascular accident) Status: Acute (2) Atrial fibrillation (3) Hypertension (4) Obesity (5) Chronic anticoagulation (6) Expressive aphasia (7) Dysarthria (8) Right sided weakness SEAN MARTINS DO Feb 28, 2021 12:25
--- NOTE | 2021-02-28 13:04 | Physical Therapy Daily Note ---
PT Daily Note-Current Subjective Patient in recliner pre tx, agrees to PT, has no complaints of pain. Patient is falling asleep in the chair and would like to get back to bed. Appearance Patient in bed post tx with nurse call, phone, tray, bed alarm on. Mental Status Patient Orientation: Person, Unable to Assess, Non-Verbal/Aphasic Transfers SCALE: Activities may be completed with or without assistive devices. 7-Srhvqcbxyz-rdhzdvb completes the activity by him/herself with no assistance from a helper. 5-Set-up or Clean-up Assistance-helper sets up or cleans up; patient completes activity. [place] assists only prior to or following the activity. 4-Supervision or Touching Assistance-helper provides verbal cues and/or touching/steadying and/or contact guard assistance as patient completes activity. Assistance may be provided throughout the activity or intermittently. 3-Partial/Moderate Assistance-helper does LESS THAN HALF the effort. [place] lifts, holds or supports trunk or limbs, but provides less than half the effort. 2-Substantial/Maximal Assistance-helper does MORE THAN HALF the effort. [place] lifts or holds trunk or limbs and provides more than half the effort. 4-Lingpvlpb-nxtpgk does ALL the effort. Patient does none of the effort to complete the activity. Or, the assistance of 2 or more helpers is required for the patient to complete the activity. If activity was not attempted, code reason: 7-Patient Refused. 9-Not Applicable-not attempted and the patient did not perform the activity before the current illness, exacerbation or injury. 10-Not Attempted due to Environmental Limitations-(lack of equipment, weather restraints, etc.). 88-Not Attempted due to Medical Conditions or Safety Concerns. Roll Left & Right (QC): 3 Sit to Lying (QC): 2 Sit to Stand (QC): 2 Chair/Omk-cz-Ijktr Xfer(QC): 2 Exercises Supine Ex: Heel Slides, Short Arc Quads, Straight leg raise, Hip abd/add Supine Reps: 20 (RLE AAROM) RLE stretching in all planes Treatments transfers, bed mobility, RLE strengthening and stretching Assessment Current Status: Poor Progress patient very fatigued, needed more assist with transfers PT Short Term Goals Short Term Goals Time Frame: Mar 06, 2021 Roll Left & Right: 3 Sit to lyin Lying to sitting on side of be: 3 Sit to stand: 3 Chair/auk-wy-bhajr transfer: 3 Toilet transfer: 3 Car transfer: 3 Walk 10 feet: 2 Walk 50 feet with two turns: 2 Walk 150 feet: 2 Walking 10ft on uneven surface: 2 1 step (curb): 2 4 steps: 2 12 steps: 2 Picking up objects: 2 Wheel 50ft w/2 turns: 3 Wheel 150 feet: 3 Type: Manual PT Police Commanding Officer Goals Retirement Goals PT Retirement Goals Time Frame: Mar 20, 2021 Roll Left & Right (QC): 5 Sit to Lying (QC): 5 Lying-Sitting on Side/Bed(QC): 5 Sit to Stand (QC): 5 Chair/Xya-af-Wbtes Xfer(QC): 5 Toilet Transfer (QC): 5 Car Transfer (QC): 5 Does the Patient Walk: No and Walking Goal IS indicated Walk 10 feet (QC): 4 Walk 50ft with 2 Turns (QC): 4 Walk 150 ft (QC): 4 Walking 10ft on Uneven Surface: 4 1 Step (curb) (QC): 4 4 Steps (QC): 4 12 Steps (QC): 4 Picking up an Object (QC): 4 Does the Pt use WC or Scooter?: Yes Wheel 50 feet with 2 turns (QC: 5 Type: Manual Wheel 150 feet: 5 Type: Manual PT Plan Problem List Problem List: Activity Tolerance, Functional Strength, Safety, Balance, Gait, Transfer, Bed Mobility, ROM Treatment/Plan Treatment Plan: Continue Plan of Care Treatment Plan: Bed Mobility, Concurrent Therapy, Education, Functional Activity Kourtney, Functional Strength, Group Therapy, Gait, Safety, Therapeutic Exercise, Transfers Treatment Duration: Apr 03, 2021 Frequency: At least 5 of 7 days/Wk (IRF) Estimated Hrs Per Day: 1.5 hours per day Patient and/or Family Agrees t: Yes Safety Risks/Education Patient Education: Transfer Techniques, Correct Positioning, Safety Issues Teaching Recipient: Patient Teaching Methods: Demonstration, Discussion Response to Teaching: Reinforcement Needed Time/GCodes Time In: 1130 Time Out: 1200 Total Billed Treatment Time: 30 Total Billed Treatment 1 visit EX 15' FA 15' ELAINE MINAYA PT Feb 28, 2021 13:04
[2021-02-28 20:00] VITALS: BP 131/68
[2021-03-01 07:54] VITALS: BP 144/68
--- NOTE | 2021-03-01 09:01 | Occupational Ther Daily Note ---
OT Current Status-Daily Note Subjective Pt alert, lying in bed. Pt agrees to therapy. No c/o pain. Mental Status/Objective Patient Orientation: Person, Place, Non-Verbal/Aphasic, Time Attachments: IV ADL-Treatment Pt. Mod A supine to sitting EOB. Pt. Max A x2 transfer from bed to shower chair. Taken to large shower room via shower chair. Pt. can cleanse face and neck independently. When asked to assist with further bathing of body parts, pt stated "no" very clearly and would not assist. Max A for bathing sitting on shower chair with cutout. Max A to thread B LE's into pant legs then max A to stand while 2nd person assisted with pant hike. Max A for footwear. Therapy Code Descriptions/Definitions Functional [place] Measure: 0=Not Assessed/NA 4=Minimal Assistance 1=Total Assistance 5=Supervision or Setup 2=Maximal Assistance 6=Modified [place] 3=Moderate Assistance 7=Complete IndependenceSCALE: Activities may be completed with or without assistive devices. 5-Grzowotnxe-umlzvyo completes the activity by him/herself with no assistance from a helper. 5-Set-up or Clean-up Assistance-helper sets up or cleans up; patient completes activity. [place] assists only prior to or following the activity. 4-Supervision or Touching Assistance-helper provides verbal cues and/or touching/steadying and/or contact guard assistance as patient completes activity. Assistance may be provided throughout the activity or intermittently. 3-Partial/Moderate Assistance-helper does LESS THAN HALF the effort. [place] lifts, holds or supports trunk or limbs, but provides less than half the effort. 2-Substantial/Maximal Assistance-helper does MORE THAN HALF the effort. [place] lifts or holds trunk or limbs and provides more than half the effort. 6-Nhfgqoyvh-wahszg does ALL the effort. Patient does none of the effort to complete the activity. Or, the assistance of 2 or more helpers is required for the patient to complete the activity. If activity was not attempted, code reason: 7-Patient Refused. 9-Not Applicable-not attempted and the patient did not perform the activity before the current illness, exacerbation or injury. 10-Not Attempted due to Environmental Limitations-(lack of equipment, weather restraints, etc.). 88-Not Attempted due to Medical Conditions or Safety Concerns. Eating (QC): 5 Shower/Bathe Self (QC): 2 Lower Body Dressing (QC): 1 On/Off Footwear: 2 Other Treatment Pt stood 2x's at parallel bars with mod A. Pt c/o pain with R LE. PROM to R UE in all planes, minimal tightness or pain. Scapular pro/retr with AAROM 10x's. After therapy, pt lying in bed with call light/phone in reach. All needs met in room. OT Short Term Goals Short Term Goals Time Frame: Mar 06, 2021 Toileting hygiene: 3 Shower/bathe self: 3 Upper body dressin Lower body dressin OT Pl[employer] Worker Goals Pl[employer] And Stucc[employer] Worker Goals Time Frame: Mar 23, 2021 Eating (QC): 5 Oral Hygiene (QC): 5 Toileting Hygiene (QC): 4 Shower/Bathe Self (QC): 4 Upper Body Dressing (QC): 5 Lower Body Dressing (QC): 4 On/Off Footwear (QC): 4 Additional Goals: 1-Demonstrate ADL Tasks, 2-Verbalize Understanding, 3- ImproveStrength/Kourtney 1=Demonstrate adherence to instructed precautions during ADL tasks. 2=Patient will verbalize/demonstrate understanding of assistive devices/modifications for ADL. 3=Patient will improve strength/tolerance for activity to enable patient to perform ADL's. OT Education/Plan Problem List/Assessment Assessment: Decreased Activ Tolerance, Decreased Safety Aware, Decreased UE Strength, Impaired Coordination, Impaired Funct Balance, Impaired Self-Care Skills, Restricted Funct UE ROM Discharge Recommendations Plan/Recommendations: Continue POC Treatment Plan/Plan of Care Patient would benefit from OT for education, treatment and training to promote independence in ADL's, mobility, safety and/or upper extremity function for ADL's. Plan of Care: ADL Retraining, Functional Mobility, Group Exercise/Act as Ind, UE Funct Exercise/Act, UE Neuromus Re-Ed/Coord Treatment Duration: Mar 23, 2021 Frequency: At least 5 of 7 days/Wk (IRF) Estimated Hrs Per Day: 1.5 hours per day Rehab Potential: Fair Time/GCodes Start Time: 07:30 Stop Time: 09:00 Total Time Billed (hr/min): 90 Billed Treatment Time 1 visit-ADL 4 (60 min) NM 2 (30 min) IAN RAMIREZ Mar 01, 2021 09:01
[2021-03-01] MEDS: busPIRone 5 MG (BUSPAR) TAB PO SCH ×2 (09:04→21:45)
[2021-03-01] MEDS: BACLOFEN 10 MG (LIORESAL) TAB PO SCH ×2 (09:04→21:45)
[2021-03-01] MEDS: AMOXICILLIN 500 MG (POLYMOX) CAP PO SCH ×3 (09:04→21:45)
[2021-03-01] MEDS: ACETAMINOPHEN 325 MG TABLET PO PRN ×2 (09:05→21:46)
[2021-03-01] MEDS: SERTRALINE 100 MG (ZOLOFT) TAB PO SCH (09:05)
[2021-03-01] MEDS: SENNA W/DOCUSATE (SENOKOT S) TABLET PO SCH ×4 (09:05→21:51)
[2021-03-01] MEDS: PANTOPRAZOLE 40 MG (PROTONIX) TAB PO SCH ×2 (09:05→21:45)
[2021-03-01] MEDS: ASPIRIN 81 MG CHEW (CHILDREN'S ASA) PO SCH (09:05)
--- NOTE | 2021-03-01 09:19 | PM&R Progress Note ---
Subjective HPI/CC On Admission Date Seen by Provider: Mar 01, 2021 Time Seen by Provider: 10:00 Subjective/Events-last exam 03/01/2021: Pt doing pretty well Speech eval will hopefully changed from thickened liquids to thin liquids Stood with PT with max-assist Fibromyalgia diagnosis noted 02/28/2021: Pt doing really well Bowels moved yesterday Antibiotic tolerated of Amoxicillin TID Denies any significant issues but Baclofen is causing a little bit of drowsiness so will monitor that closely 02/27/2021: Pt about the same Urine culture shows proteus, will initiated Amoxicillin 500 TID and DC the Cefepime Baclofen will be helpful for spasms of the right side Bowels are moving 02/26/2021: Patient doing pretty well No BM yet so will address Urine culture is pending but it is proteus Cefepime IV antibiotic maintained 02/25/21: Tolerating UTI treatment Proteus on UCx no sensitivity yet No pain Dependence is noted 02/24/21: Patient slow recovery Minimal conversing UTI dx via straight cath when nurses reported malodorous urine Cefepime maintained 02/23/2021: Slow progress RN had concerns of stroke extension due to nausea CT scan did not show any new stroke 02/22/2021: Pt appears to be very withdrawn No concerns at this current time Dr. Joshi did come in and change a few medications Pt denies any other issues 02/21/2021: Patient seems to be settling in well Just had a shower Expressive aphasia makes it difficult to communicate Remains a max assist No major issues Bowels are moving Incontinent at times Remains a feeder Cardiology consult appreciated Review of Systems General: Fatigue, Malaise Neurological: Weakness, Incoordination Objective Exam Vital Signs Vital Signs Date Time Temp Pulse Resp B/P (MAP) Pulse Ox O2 Delivery O2 Flow Rate FiO2 03/01/21 21:00 Room Air 03/01/21 20:00 36.5 82 16 122/79 (93) 94 Capillary Refill : General Appearance: No Apparent Distress, WD/WN, Chronically ill, Obese HEENT: PERRL/EOMI, Normal ENT Inspection, Pharynx Normal Neck: Full Range of Motion, Normal Inspection, Non Tender, Supple, Carotid Bruit Respiratory: Chest Non Tender, Lungs Clear, Normal Breath Sounds, No Accessory Muscle Use, No Respiratory Distress Cardiovascular: Regular Rate, Rhythm, No Edema, No Gallop, No JVD, No Murmur, Normal Peripheral Pulses Gastrointestinal: Normal Bowel Sounds, No Organomegaly, No Pulsatile Mass, Non Tender, Soft Back: Normal Inspection, No CVA Tenderness, No Vertebral Tenderness Extremity: Normal Capillary Refill, Normal Inspection, Normal Range of Motion, Non Tender, No Calf Tenderness, No Pedal Edema Neurologic/Psychiatric: Alert, Oriented x3, Abnormal Gait, Depressed Affect, Facial Droop (Right), Motor Weakness (Right-sided weakness 1/5) Skin: Normal Color, Warm/Dry Lymphatic: No Adenopathy Results/Procedures Lab Patient resulted labs reviewed. FIM Transfers Therapy Code Descriptions/Definitions Functional [place] Measure: 0=Not Assessed/NA 4=Minimal Assistance 1=Total Assistance 5=Supervision or Setup 2=Maximal Assistance 6=Modified [place] 3=Moderate Assistance 7=Complete IndependenceSCALE: Activities may be completed with or without assistive devices. 5-Qyuuvhebre-iuykpos completes the activity by him/herself with no assistance from a helper. 5-Set-up or Clean-up Assistance-helper sets up or cleans up; patient completes activity. [place] assists only prior to or following the activity. 4-Supervision or Touching Assistance-helper provides verbal cues and/or touching/steadying and/or contact guard assistance as patient completes activity. Assistance may be provided throughout the activity or intermittently. 3-Partial/Moderate Assistance-helper does LESS THAN HALF the effort. [place] lifts, holds or supports trunk or limbs, but provides less than half the effort. 2-Substantial/Maximal Assistance-helper does MORE THAN HALF the effort. [place] lifts or holds trunk or limbs and provides more than half the effort. 7-Cvtcmeesd-eoieaw does ALL the effort. Patient does none of the effort to complete the activity. Or, the assistance of 2 or more helpers is required for the patient to complete the activity. If activity was not attempted, code reason: 7-Patient Refused. 9-Not Applicable-not attempted and the patient did not perform the activity before the current illness, exacerbation or injury. 10-Not Attempted due to Environmental Limitations-(lack of equipment, weather restraints, etc.). 88-Not Attempted due to Medical Conditions or Safety Concerns. Roll Left to Right (QC): 3 Sit to Lying (QC): 2 Sit to Stand (QC): 2 Chair/Spb-hk-Cihic Xfer(QC): 2 Car Transfer (QC): 1 Gait Training Does the Patient Walk?: No and Walking Goal IS indicated Walk 10 feet (QC): 1 Walk 50 ft with 2 Turns(QC): 1 Walk 150 ft (QC): 1 Walking 10ft/uneven surface-QC: 1 Wheelchair Training Does the Pt Use a Wheelchair?: Yes Distance: 0 Wheel 50 ft with 2 turns (QC): 2 Wheel 150 ft (QC): 2 Type of Wheelchair: Manual Stair Training 1 Step (curb) (QC): 1 4 Steps (QC): 1 12 Steps (QC): 1 Balance Picking up an Object (QC): 1 ADL-Treatment Eating (QC): 5 Oral Hygiene (QC): 5 Bathing Location: Chest Shower/Bathe Self (QC): 3 (Set up, Max. A to cleanse all parts.) Upper Body Dressing (QC): 3 (Set up, helped thread arms through appropriate holes in dress. ) Lower Body Dressing (QC): 1 On/Off Footwear (QC): 2 Toileting Hygiene (QC): 1 Toilet Transfer (QC): 1 Assessment/Plan Assessment and Plan Assess & Plan/Chief Complaint Assessment: CVA with right-sided weakness Expressive aphasia Dysarthria Hypertension Chronic atrial fibrillation Oral anticoagulants maintained Obesity UTI 02/24/21 started Cefepime Plan: Continue current active meds Speech therapy PT and OT Aggressive therapy 02/21/2021: Appreciate cardiology consult Supportive care Aggressive physical therapy 02/22/2021: May need behavioral health Withdrawn today 02/23/2021: Slow recovery Reviewed CT scan 02/24/21: UTI treatment Normal LA Monitor closely 02/25/21: UTI Tx Monitor closely 02/26/2021: Cefepime Await urine culture Bowel regimen 02/27/2021: Change cefepime to amoxicillin per Proteus urine culture results Continue aggressive therapy 02/28/2021: Due to 's health issues she will need to go to skilled 03/01/2021: Skilled at discharge Continue baclofen (1) CVA (cerebral vascular accident) Status: Acute (2) Atrial fibrillation (3) Hypertension (4) Obesity (5) Chronic anticoagulation (6) Expressive aphasia (7) Dysarthria (8) Right sided weakness SEAN MARTINS DO Mar 01, 2021 09:19
[2021-03-01] MEDS: DOCUSATE SODIUM 100 MG (COLACE) CAP PO SCH ×2 (09:27→21:45)
[2021-03-01] MEDS: polyethylene glycoL POWDER 17 GM (MIRALAX) PACK PO SCH ×2 (09:29→21:51)
[2021-03-01] MEDS: APIXABAN 5 MG (ELIQUIS) TABLET PO SCH ×2 (09:52→21:45)
--- NOTE | 2021-03-01 13:39 | Physical Therapy Daily Note ---
PT Daily Note-Current Subjective Patient agrees to exercises. No c/o. Transfers SCALE: Activities may be completed with or without assistive devices. 3-Ldekmzgetf-drwsdjp completes the activity by him/herself with no assistance from a helper. 5-Set-up or Clean-up Assistance-helper sets up or cleans up; patient completes activity. [place] assists only prior to or following the activity. 4-Supervision or Touching Assistance-helper provides verbal cues and/or touching/steadying and/or contact guard assistance as patient completes activity. Assistance may be provided throughout the activity or intermittently. 3-Partial/Moderate Assistance-helper does LESS THAN HALF the effort. [place] lifts, holds or supports trunk or limbs, but provides less than half the effort. 2-Substantial/Maximal Assistance-helper does MORE THAN HALF the effort. [place] lifts or holds trunk or limbs and provides more than half the effort. 2-Wiikngywv-mzvrqj does ALL the effort. Patient does none of the effort to complete the activity. Or, the assistance of 2 or more helpers is required for the patient to complete the activity. If activity was not attempted, code reason: 7-Patient Refused. 9-Not Applicable-not attempted and the patient did not perform the activity before the current illness, exacerbation or injury. 10-Not Attempted due to Environmental Limitations-(lack of equipment, weather restraints, etc.). 88-Not Attempted due to Medical Conditions or Safety Concerns. Exercises Supine Ex: Ankle pumps (right ankle stretching due to plantarflexion tone), Heel Slides, Straight leg raise, Hip abd/add Supine Reps: 15 (x 2 sets PROM right LE/AAROM left LE) Assessment Warm blanket issued after treatment for comfort. Patient tolerates minimal activity. PT Short Term Goals Short Term Goals Time Frame: Mar 06, 2021 Roll Left & Right: 3 Sit to lyin Lying to sitting on side of be: 3 Sit to stand: 3 Chair/vuv-jb-lbkup transfer: 3 Toilet transfer: 3 Car transfer: 3 Walk 10 feet: 2 Walk 50 feet with two turns: 2 Walk 150 feet: 2 Walking 10ft on uneven surface: 2 1 step (curb): 2 4 steps: 2 12 steps: 2 Picking up objects: 2 Wheel 50ft w/2 turns: 3 Wheel 150 feet: 3 Type: Manual PT [facility] Goals Work Car Operator Goals PT Work Car Operator Goals Time Frame: Mar 20, 2021 Roll Left & Right (QC): 5 Sit to Lying (QC): 5 Lying-Sitting on Side/Bed(QC): 5 Sit to Stand (QC): 5 Chair/Taq-dv-Zcazv Xfer(QC): 5 Toilet Transfer (QC): 5 Car Transfer (QC): 5 Does the Patient Walk: No and Walking Goal IS indicated Walk 10 feet (QC): 4 Walk 50ft with 2 Turns (QC): 4 Walk 150 ft (QC): 4 Walking 10ft on Uneven Surface: 4 1 Step (curb) (QC): 4 4 Steps (QC): 4 12 Steps (QC): 4 Picking up an Object (QC): 4 Does the Pt use WC or Scooter?: Yes Wheel 50 feet with 2 turns (QC: 5 Type: Manual Wheel 150 feet: 5 Type: Manual PT Plan Treatment/Plan Treatment Plan: Continue Plan of Care Treatment Plan: Bed Mobility, Concurrent Therapy, Education, Functional Activity Kourtney, Functional Strength, Group Therapy, Gait, Safety, Therapeutic Exercise, Transfers Treatment Duration: Apr 03, 2021 Frequency: At least 5 of 7 days/Wk (IRF) Estimated Hrs Per Day: 1.5 hours per day Patient and/or Family Agrees t: Yes Time/GCodes Time In: 1315 Time Out: 1330 Total Billed Treatment Time: 15 Total Billed Treatment 1 visit EX 15 min REGAN VARELA PT Mar 01, 2021 13:39
--- NOTE | 2021-03-01 13:54 | Speech Therapy Daily Note ---
Speech Daily Progress Note Subjective Time Seen by Provider: 11:30 Pt laying in bed. Opened eyes upon MILK CONDENSER arrival. Pt agreeable to speech therapy today. Objective RN indicates pt is not drinking much and has an UTI. Thin liquids trialed via side of cup with cough on 2/3 trials. Verbal command provided for small sips and chin tuck. Pt required cues to follow strategies. MILK CONDENSER recommends modified barium swallow study for further assessment of thin liquids and possible diet upgrade. Automatic naming tasks completed with counting and days of the week. Counting to 10: 90% accy. JACE: verbal/visual cues required with 60% accy. Phrase completion completed with 70% accy. Treatment Plan Continue Plan of Care Speech Short Term Goals Short Term Goals Short Term Goals 1) Patient will complete expressive language tasks of simple one word or simple phrase responses at 75% with minimal cues. 2) Patient will complete confrontational naming tasks of common everyday objects/pictures with 75% with minimal cues. 3) Patient will tolerate least restrictive diet level without s/s of aspiration at 90% or greater. 4) Patient will complete OME to improve oral intake and speech production with 90% or greater with minimal cues. 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 Patient will maintain adequate nutrition/hydration via safe effective swallow function. Speech-Plan Treatment Plan Speech Therapy Treatment Plan: Continue Plan of Care Treatment Duration: Mar 06, 2021 Frequency: 4 times per week (Patient will receive skilled ST 4-5x per week) Estimated Hrs Per Day: .5 hour per day Rehab Potential: Fair Time Speech Therapy Time In: 11:30 Speech Therapy Time Out: 12:00 Billed Treatment Time 1, DYST; SLTS 30 MINS HAVEN HOLDEN Mar 01, 2021 13:54
[2021-03-01 20:00] VITALS: BP 122/79
[2021-03-02 07:25] VITALS: BP 131/59
--- NOTE | 2021-03-02 08:07 | Physical Therapy Daily Note ---
PT Daily Note-Current Subjective Note from am treatment on 03-01-21. Patient lying supine in bed upon PT arrival, agreeable to treatment but patient appears very drowsy and difficult to arouse initially. Mental Status Patient Orientation: Person Transfers SCALE: Activities may be completed with or without assistive devices. 4-Rflnkasjwk-byieknv completes the activity by him/herself with no assistance from a helper. 5-Set-up or Clean-up Assistance-helper sets up or cleans up; patient completes activity. [place] assists only prior to or following the activity. 4-Supervision or Touching Assistance-helper provides verbal cues and/or touching/steadying and/or contact guard assistance as patient completes activity. Assistance may be provided throughout the activity or intermittently. 3-Partial/Moderate Assistance-helper does LESS THAN HALF the effort. [place] lifts, holds or supports trunk or limbs, but provides less than half the effort. 2-Substantial/Maximal Assistance-helper does MORE THAN HALF the effort. [place] lifts or holds trunk or limbs and provides more than half the effort. 0-Uytnzrxpj-avcrtn does ALL the effort. Patient does none of the effort to complete the activity. Or, the assistance of 2 or more helpers is required for the patient to complete the activity. If activity was not attempted, code reason: 7-Patient Refused. 9-Not Applicable-not attempted and the patient did not perform the activity before the current illness, exacerbation or injury. 10-Not Attempted due to Environmental Limitations-(lack of equipment, weather restraints, etc.). 88-Not Attempted due to Medical Conditions or Safety Concerns. Roll Left & Right (QC): 2 Sit to Lying (QC): 2 Lying to Sitting/Side of Bed(Q: 2 Sit to Stand (QC): 1 Chair/Enb-zu-Nasgj Xfer(QC): 1 Toilet Transfer (QC): 1 Wheelchair Training Does the Pt Use a Wheelchair?: Yes Wheel 50 ft with 2 turns (QC): 4 Type of Wheelchair: Manual Exercises Supine Ex: Ankle pumps, Quad Set, Glut sets, Heel Slides, Short Arc Quads, Straight leg raise, Hip abd/add Supine Reps: 20 Seated Therapy Exercises: Long arc quads, Hip flexion, Hamstring Curls, Hip abd/add Seated Reps: 20 NuStep Minutes: 5 NuStep Workload: 1 Assessment Current Status: Fair Progress Patient tolerated treatment fair. Patient performed LE ther ex in supine as listed above. Patient practiced bed mobility with focus on using right LE as much as possible, however became stuck during supine to sit and require max A to finish transfer. Requires max/total assistance for all observed bed mobility and transfers. Patient able to tolerate standing for a few seconds with min A, however requires max A for stand pivot transfer to chair. Patient was able to propel the w/c ~ 50 feet, however due to fatigue and pain, which she was unable to verbalize rating or specific location, she was unable to propel further. Patient was transferred to Step and performed with BLEs and left UE at level 1 x 5 minutes. Patient transferred back to W/C and performed remaining ther ex in sitting. Patient in w/c post treatment with all needs met, nursing notified, call light in reach. PT Short Term Goals Short Term Goals Time Frame: Mar 06, 2021 Roll Left & Right: 3 Sit to lyin Lying to sitting on side of be: 3 Sit to stand: 3 Chair/zgd-yv-yfhql transfer: 3 Toilet transfer: 3 Car transfer: 3 Walk 10 feet: 2 Walk 50 feet with two turns: 2 Walk 150 feet: 2 Walking 10ft on uneven surface: 2 1 step (curb): 2 4 steps: 2 12 steps: 2 Picking up objects: 2 Wheel 50ft w/2 turns: 3 Wheel 150 feet: 3 Type: Manual PT Cemetery Worker Goals Cemetery Worker Goals PT Cemetery Worker Goals Time Frame: Mar 20, 2021 Roll Left & Right (QC): 5 Sit to Lying (QC): 5 Lying-Sitting on Side/Bed(QC): 5 Sit to Stand (QC): 5 Chair/Ohb-cp-Hciox Xfer(QC): 5 Toilet Transfer (QC): 5 Car Transfer (QC): 5 Does the Patient Walk: No and Walking Goal IS indicated Walk 10 feet (QC): 4 Walk 50ft with 2 Turns (QC): 4 Walk 150 ft (QC): 4 Walking 10ft on Uneven Surface: 4 1 Step (curb) (QC): 4 4 Steps (QC): 4 12 Steps (QC): 4 Picking up an Object (QC): 4 Does the Pt use WC or Scooter?: Yes Wheel 50 feet with 2 turns (QC: 5 Type: Manual Wheel 150 feet: 5 Type: Manual PT Plan Treatment/Plan Treatment Plan: Continue Plan of Care Treatment Plan: Bed Mobility, Concurrent Therapy, Education, Functional Activity Kourtney, Functional Strength, Group Therapy, Gait, Safety, Therapeutic Exercise, Transfers Treatment Duration: Apr 03, 2021 Frequency: At least 5 of 7 days/Wk (IRF) Estimated Hrs Per Day: 1.5 hours per day Patient and/or Family Agrees t: Yes Safety Risks/Education Patient Education: Transfer Techniques, Reviewed Precautions, Safety Issues Teaching Recipient: Patient Teaching Methods: Demonstration, Discussion Response to Teaching: Reinforcement Needed Time/GCodes Time In: 930 Time Out: 1030 Total Billed Treatment Time: 60 Total Billed Treatment Visit, Ex (2), FA (2) ABDIAS PIZARRO PT Mar 02, 2021 08:07
--- NOTE | 2021-03-02 08:45 | Occupational Ther Daily Note ---
OT Current Status-Daily Note Subjective Pt. alert in bed. Pt. pleasant, shakes head "no" when asked if slept well last night. No c/o of pain, Pt. agrees to therapy. Pt is self-limiting during therapy. Pt smiles and is pleasant though gives up during therapy and will shake head or verbalize "no". Mental Status/Objective Patient Orientation: Person, Place, Non-Verbal/Aphasic, Time, Situation ADL-Treatment Pt is set up for eating. Assist x2 for bed mobility. Mod A to don dress sitting EOB. Pt appears more fatigued today and requiring increased assistance for transfers and sitting EOB. Max A for SPT to w/c then pt extended body, moaned then leaned forward. Nrsg called and BP taken (134/70). Nrsg brought pt cold thickened water and educated pt on staying hydrated. Pt max A for footwear. Declined to complete oral care. Therapy Code Descriptions/Definitions Functional [place] Measure: 0=Not Assessed/NA 4=Minimal Assistance 1=Total Assistance 5=Supervision or Setup 2=Maximal Assistance 6=Modified [place] 3=Moderate Assistance 7=Complete IndependenceSCALE: Activities may be completed with or without assistive devices. 7-Vagjzirvwf-kndmrci completes the activity by him/herself with no assistance from a helper. 5-Set-up or Clean-up Assistance-helper sets up or cleans up; patient completes activity. [place] assists only prior to or following the activity. 4-Supervision or Touching Assistance-helper provides verbal cues and/or touching/steadying and/or contact guard assistance as patient completes activity. Assistance may be provided throughout the activity or intermittently. 3-Partial/Moderate Assistance-helper does LESS THAN HALF the effort. [place] lifts, holds or supports trunk or limbs, but provides less than half the effort. 2-Substantial/Maximal Assistance-helper does MORE THAN HALF the effort. [place] l ifts or holds trunk or limbs and provides more than half the effort. 8-Vcmfukitd-caonrj does ALL the effort. Patient does none of the effort to complete the activity. Or, the assistance of 2 or more helpers is required for the patient to complete the activity. If activity was not attempted, code reason: 7-Patient Refused. 9-Not Applicable-not attempted and the patient did not perform the activity before the current illness, exacerbation or injury. 10-Not Attempted due to Environmental Limitations-(lack of equipment, weather restraints, etc.). 88-Not Attempted due to Medical Conditions or Safety Concerns. Eating (QC): 5 Oral Hygiene (QC): 7 Upper Body Dressing (QC): 3 On/Off Footwear: 2 Other Treatment Co-treat with PT ([id number]), skills of 2 clinicians required to decrease fall risk, increase strength and functional mobility. PT focusing on transfers, LE strengthening and w/c mobility while OT focusing on UE placement, ADLs and functional mobility. Pt. worked on w/c mobility using R hand to propel w/c from room to elevator. Once downstairs Pt. was encouraged verbally, and reminded where to place hand to propel w/c but Pt. declined. Pt. brought to gym Max A w/c to Nustep transfer. Pt. required multiple verbal cues and encouragement to continue working/moving Nustep. Pt would start with encouragement then stop after ~15 to 30 seconds. Pt then taken back to room and place in bed with max A. After therapy, pt left in care of PT. All needs met in room. OT Short Term Goals Short Term Goals Time Frame: Mar 06, 2021 Toileting hygiene: 3 Shower/bathe self: 3 Upper body dressin Lower body dressin OT Senior Care Goals Senior Care Goals Time Frame: Mar 23, 2021 Eating (QC): 5 Oral Hygiene (QC): 5 Toileting Hygiene (QC): 4 Shower/Bathe Self (QC): 4 Upper Body Dressing (QC): 5 Lower Body Dressing (QC): 4 On/Off Footwear (QC): 4 Additional Goals: 1-Demonstrate ADL Tasks, 2-Verbalize Understanding, 3- ImproveStrength/Kourtney 1=Demonstrate adherence to instructed precautions during ADL tasks. 2=Patient will verbalize/demonstrate understanding of assistive devic es/modifications for ADL. 3=Patient will improve strength/tolerance for activity to enable patient to perform ADL's. OT Education/Plan Problem List/Assessment Assessment: Decreased Activ Tolerance, Decreased Safety Aware, Decreased UE Strength, Impaired Cognition, Impaired Coordination, Impaired Funct Balance, Impaired Self-Care Skills Discharge Recommendations Plan/Recommendations: Continue POC Treatment Plan/Plan of Care Patient would benefit from OT for education, treatment and training to promote independence in ADL's, mobility, safety and/or upper extremity function for ADL's. Plan of Care: ADL Retraining, Functional Mobility, Group Exercise/Act as Ind, UE Funct Exercise/Act, UE Neuromus Re-Ed/Coord Treatment Duration: Mar 23, 2021 Frequency: At least 5 of 7 days/Wk (IRF) Estimated Hrs Per Day: 1.5 hours per day Rehab Potential: Fair Time/GCodes Start Time: 07:15 Stop Time: 09:00 Total Time Billed (hr/min): 105 Billed Treatment Time 1 visit- ADL 3 (45 min), NM 1 (15 min) FA 3 (45 min) co-treat with PT 0800- 0900, individual [id number] IAN RAMIREZ Mar 02, 2021 08:45
[2021-03-02] MEDS: ASPIRIN 81 MG CHEW (CHILDREN'S ASA) PO SCH (08:55)
[2021-03-02] MEDS: BACLOFEN 10 MG (LIORESAL) TAB PO SCH ×2 (08:56→21:30)
[2021-03-02] MEDS: PANTOPRAZOLE 40 MG (PROTONIX) TAB PO SCH ×2 (08:56→21:31)
[2021-03-02] MEDS: APIXABAN 5 MG (ELIQUIS) TABLET PO SCH ×2 (08:56→21:30)
[2021-03-02] MEDS: SERTRALINE 100 MG (ZOLOFT) TAB PO SCH (08:56)
[2021-03-02] MEDS: DOCUSATE SODIUM 100 MG (COLACE) CAP PO SCH ×2 (08:56→21:31)
[2021-03-02] MEDS: busPIRone 5 MG (BUSPAR) TAB PO SCH ×2 (08:56→21:31)
[2021-03-02] MEDS: AMOXICILLIN 500 MG (POLYMOX) CAP PO SCH ×3 (08:56→21:31)
[2021-03-02] MEDS: SENNA W/DOCUSATE (SENOKOT S) TABLET PO SCH ×4 (08:57→21:31)
[2021-03-02] MEDS: polyethylene glycoL POWDER 17 GM (MIRALAX) PACK PO SCH ×2 (08:57→21:35)
--- NOTE | 2021-03-02 09:17 | Physical Therapy Daily Note ---
PT Daily Note-Current Subjective Patient in WC pre tx agrees to PT, has no complaints of pain. Will be co- treating with OT due to poor patient mobility, strength, endurance, balance, right hemiparesis, coordinate UE and LE during activity. Appearance Patient in bed post tx with nurse call, phone, tray, all needs met, bed alarm on. Mental Status Patient Orientation: Person, Unable to Assess, Non-Verbal/Aphasic Transfers SCALE: Activities may be completed with or without assistive devices. 6-Emhgaulpbb-obnzqrt completes the activity by him/herself with no assistance from a helper. 5-Set-up or Clean-up Assistance-helper sets up or cleans up; patient completes activity. [place] assists only prior to or following the activity. 4-Supervision or Touching Assistance-helper provides verbal cues and/or touching/steadying and/or contact guard assistance as patient completes activity. Assistance may be provided throughout the activity or intermittently. 3-Partial/Moderate Assistance-helper does LESS THAN HALF the effort. [place] lifts, holds or supports trunk or limbs, but provides less than half the effort. 2-Substantial/Maximal Assistance-helper does MORE THAN HALF the effort. [place] lifts or holds trunk or limbs and provides more than half the effort. 4-Wlaeozwid-inheeo does ALL the effort. Patient does none of the effort to complete the activity. Or, the assistance of 2 or more helpers is required for the patient to complete the activity. If activity was not attempted, code reason: 7-Patient Refused. 9-Not Applicable-not attempted and the patient did not perform the activity before the current illness, exacerbation or injury. 10-Not Attempted due to Environmental Limitations-(lack of equipment, weather restraints, etc.). 88-Not Attempted due to Medical Conditions or Safety Concerns. Roll Left & Right (QC): 1 Sit to Lying (QC): 1 Sit to Stand (QC): 1 Chair/Rja-ce-Bdbqc Xfer(QC): 1 assist of 2 for transfers and sit to supine Wheelchair Training Does the Pt Use a Wheelchair?: Yes Wheel 50 ft with 2 turns (QC): 1 Wheel 150 ft (QC): 1 Type of Wheelchair: Manual Practiced WC mobility, initially used left arm to propel, would not use left foot. Eventually she just refused to continue to try. Patient didn't assist propelling the WC much in the first place, not even enough to be considered max assist. Exercises Supine Ex: Ankle pumps, Quad Set, Glut sets, Heel Slides, Short Arc Quads, Straight leg raise, Hip abd/add Supine Reps: 20 (AROM on the left side, PROM on the right side) right manual dorsiflexion stretch NuStep Minutes: 15 NuStep Workload: 1 (used left arm and leg, poor participation) Treatments PT performed bed mobility and transfers, WC mobility, functional strengthening, LE strengthening and stretching, OT performed UE positioning and safety, assist with transfers and bed mobility Assessment Current Status: Poor Progress, Regressing Patient is declining in functional mobility. She has severely poor motivation now. Grimaces with any movement like transfers or standing. She cannot express what is wrong but shakes her head no if asked if she has pain or dizziness, her vitals are WNL. Patient outright refuses to participate in some activities like standing in the parallel bars and now today she refused WC mobility after doing in for a while. Therapy is almost to the point now where the therapists are just moving her around with her participating little to none, which isn't going to improve her strength or functional mobility at all. When asked if she is giving up and doesn't want to do therapy any more she shakes her head no. PT Short Term Goals Short Term Goals Time Frame: Mar 06, 2021 Roll Left & Right: 3 Sit to lyin Lying to sitting on side of be: 3 Sit to stand: 3 Chair/iqh-ca-cmffs transfer: 3 Toilet transfer: 3 Car transfer: 3 Walk 10 feet: 2 Walk 50 feet with two turns: 2 Walk 150 feet: 2 Walking 10ft on uneven surface: 2 1 step (curb): 2 4 steps: 2 12 steps: 2 Picking up objects: 2 Wheel 50ft w/2 turns: 3 Wheel 150 feet: 3 Type: Manual PT Asparagus Buncher Goals Asparagus Buncher Goals PT Custodial Goals Time Frame: Mar 20, 2021 Roll Left & Right (QC): 5 Sit to Lying (QC): 5 Lying-Sitting on Side/Bed(QC): 5 Sit to Stand (QC): 5 Chair/Lzy-dr-Icuwz Xfer(QC): 5 Toilet Transfer (QC): 5 Car Transfer (QC): 5 Does the Patient Walk: No and Walking Goal IS indicated Walk 10 feet (QC): 4 Walk 50ft with 2 Turns (QC): 4 Walk 150 ft (QC): 4 Walking 10ft on Uneven Surface: 4 1 Step (curb) (QC): 4 4 Steps (QC): 4 12 Steps (QC): 4 Picking up an Object (QC): 4 Does the Pt use WC or Scooter?: Yes Wheel 50 feet with 2 turns (QC: 5 Type: Manual Wheel 150 feet: 5 Type: Manual PT Plan Problem List Problem List: Activity Tolerance, Functional Strength, Safety, Balance, Gait, Transfer, Bed Mobility, ROM Treatment/Plan Treatment Plan: Continue Plan of Care Treatment Plan: Bed Mobility, Concurrent Therapy, Education, Functional Activity Kourtney, Functional Strength, Group Therapy, Gait, Safety, Therapeutic Exercise, Transfers Treatment Duration: Apr 03, 2021 Frequency: At least 5 of 7 days/Wk (IRF) Estimated Hrs Per Day: 1.5 hours per day Patient and/or Family Agrees t: Yes Safety Risks/Education Patient Education: Transfer Techniques, Correct Positioning, W/C Management, Safety Issues Teaching Recipient: Patient Teaching Methods: Demonstration, Discussion Response to Teaching: Reinforcement Needed Time/GCodes Time In: 0800 Time Out: 929 Total Billed Treatment Time: 90 Total Billed Treatment 1 visit EX 45' FA 45' co-treated from [id number] ELAINE MINAYA PT Mar 02, 2021 09:16
--- NOTE | 2021-03-02 09:23 | PM&R Progress Note ---
Subjective HPI/CC On Admission Date Seen by Provider: Mar 02, 2021 Time Seen by Provider: 12:30 Subjective/Events-last exam 03/02/2021: Trying to get thinner liquids tolerated so she will drink more Checked meds and labs Denies any pain Muscle spasms on the right side reported 03/01/2021: Pt doing pretty well Speech eval will hopefully changed from thickened liquids to thin liquids Stood with PT with max-assist Fibromyalgia diagnosis noted 02/28/2021: Pt doing really well Bowels moved yesterday Antibiotic tolerated of Amoxicillin TID Denies any significant issues but Baclofen is causing a little bit of drowsiness so will monitor that closely 02/27/2021: Pt about the same Urine culture shows proteus, will initiated Amoxicillin 500 TID and DC the Cefepime Baclofen will be helpful for spasms of the right side Bowels are moving 02/26/2021: Patient doing pretty well No BM yet so will address Urine culture is pending but it is proteus Cefepime IV antibiotic maintained 02/25/21: Tolerating UTI treatment Proteus on UCx no sensitivity yet No pain Dependence is noted 02/24/21: Patient slow recovery Minimal conversing UTI dx via straight cath when nurses reported malodorous urine Cefepime maintained 02/23/2021: Slow progress RN had concerns of stroke extension due to nausea CT scan did not show any new stroke 02/22/2021: Pt appears to be very withdrawn No concerns at this current time Dr. Joshi did come in and change a few medications Pt denies any other issues 02/21/2021: Patient seems to be settling in well Just had a shower Expressive aphasia makes it difficult to communicate Remains a max assist No major issues Bowels are moving Incontinent at times Remains a feeder Cardiology consult appreciated Review of Systems General: Fatigue HEENT: Dysphasia Neurological: Weakness, Incoordination, Change in speech Objective Exam Vital Signs Vital Signs Date Time Temp Pulse Resp B/P (MAP) Pulse Ox O2 Delivery O2 Flow Rate FiO2 03/02/21 21:00 Room Air 03/02/21 20:00 36.6 73 16 150/65 (93) 96 Capillary Refill : General Appearance: No Apparent Distress, WD/WN, Chronically ill, Obese HEENT: PERRL/EOMI, Normal ENT Inspection, Pharynx Normal Neck: Full Range of Motion, Normal Inspection, Non Tender, Supple, Carotid Brui t Respiratory: Chest Non Tender, Lungs Clear, Normal Breath Sounds, No Accessory Muscle Use, No Respiratory Distress Cardiovascular: Regular Rate, Rhythm, No Edema, No Gallop, No JVD, No Murmur, Normal Peripheral Pulses Gastrointestinal: Normal Bowel Sounds, No Organomegaly, No Pulsatile Mass, Non Tender, Soft Back: Normal Inspection, No CVA Tenderness, No Vertebral Tenderness Extremity: Normal Capillary Refill, Normal Inspection, Normal Range of Motion, Non Tender, No Calf Tenderness, No Pedal Edema Neurologic/Psychiatric: Alert, Oriented x3, Abnormal Gait, Depressed Affect, Facial Droop (Right), Motor Weakness (Right-sided weakness 1/5) Skin: Normal Color, Warm/Dry Lymphatic: No Adenopathy Results/Procedures Lab Patient resulted labs reviewed. FIM Transfers Therapy Code Descriptions/Definitions Functional [place] Measure: 0=Not Assessed/NA 4=Minimal Assistance 1=Total Assistance 5=Supervision or Setup 2=Maximal Assistance 6=Modified [place] 3=Moderate Assistance 7=Complete IndependenceSCALE: Activities may be completed with or without assistive devices. 5-Hxyampjgyv-jedpsmv completes the activity by him/herself with no assistance from a helper. 5-Set-up or Clean-up Assistance-helper sets up or cleans up; patient completes activity. [place] assists only prior to or following the activity. 4-Supervision or Touching Assistance-helper provides verbal cues and/or touching/steadying and/or contact guard assistance as patient completes activity. Assistance may be provided throughout the activity or intermittently. 3-Partial/Moderate Assistance-helper does LESS THAN HALF the effort. [place] lifts, holds or supports trunk or limbs, but provides less than half the effort. 2-Substantial/Maximal Assistance-helper does MORE THAN HALF the effort. Gate lifts or holds trunk or limbs and provides more than half the effort. 8-Xxxupclss-lqdssg does ALL the effort. Patient does none of the effort to complete the activity. Or, the assistance of 2 or more helpers is required for the patient to complete the activity. If activity was not attempted, code reason: 7-Patient Refused. 9-Not Applicable-not attempted and the patient did not perform the activity before the current illness, exacerbation or injury. 10-Not Attempted due to Environmental Limitations-(lack of equipment, weather restraints, etc.). 88-Not Attempted due to Medical Conditions or Safety Concerns. Roll Left to Right (QC): 2 Sit to Lying (QC): 2 Sit to Stand (QC): 1 Chair/Znn-fb-Brayn Xfer(QC): 1 Car Transfer (QC): 1 Gait Training Does the Patient Walk?: No and Walking Goal IS indicated Walk 10 feet (QC): 1 Walk 50 ft with 2 Turns(QC): 1 Walk 150 ft (QC): 1 Walking 10ft/uneven surface-QC: 1 Wheelchair Training Does the Pt Use a Wheelchair?: Yes Distance: 0 Wheel 50 ft with 2 turns (QC): 4 Wheel 150 ft (QC): 2 Type of Wheelchair: Manual Stair Training 1 Step (curb) (QC): 1 4 Steps (QC): 1 12 Steps (QC): 1 Balance Picking up an Object (QC): 1 ADL-Treatment Eating (QC): 5 Oral Hygiene (QC): 7 Bathing Location: Chest Shower/Bathe Self (QC): 2 Upper Body Dressing (QC): 3 Lower Body Dressing (QC): 1 On/Off Footwear (QC): 2 Toileting Hygiene (QC): 1 Toilet Transfer (QC): 1 Assessment/Plan Assessment and Plan Assess & Plan/Chief Complaint Assessment: CVA with right-sided weakness Expressive aphasia Dysarthria Hypertension Chronic atrial fibrillation Oral anticoagulants maintained Obesity UTI 02/24/21 started Cefepime transition to amoxicillin for Proteus Urinary retention requiring Higgins catheter placement 03/02/2021 Plan: Continue current active meds Speech therapy PT and OT Aggressive therapy 02/21/2021: Appreciate cardiology consult Supportive care Aggressive physical therapy 02/22/2021: May need behavioral health Withdrawn today 02/23/2021: Slow recovery Reviewed CT scan 02/24/21: UTI treatment Normal LA Monitor closely 02/25/21: UTI Tx Monitor closely 02/26/2021: Cefepime Await urine culture Bowel regimen 02/27/2021: Change cefepime to amoxicillin per Proteus urine culture results Continue aggressive therapy 02/28/2021: Due to 's health issues she will need to go to skilled 03/01/2021: Skilled at discharge Continue baclofen 03/02/2021: Higgins catheter required due to retention Complete antibiotics for UTI Work on thin liquids (1) CVA (cerebral vascular accident) Status: Acute (2) Atrial fibrillation (3) Hypertension (4) Obesity (5) Chronic anticoagulation (6) Expressive aphasia (7) Dysarthria (8) Right sided weakness SEAN MARTINS DO Mar 02, 2021 09:23
[2021-03-02 20:00] VITALS: BP 150/65
[2021-03-03] MEDS: BETHANECHOL 25 MG (URECHOLINE) TAB PO SCH ×4 (06:32→20:22)
--- NOTE | 2021-03-03 06:45 | PM&R Progress Note ---
Subjective HPI/CC On Admission Date Seen by Provider: Mar 03, 2021 Time Seen by Provider: 12:30 Subjective/Events-last exam 03/03/2021: Patient doing pretty well Sister at the bedside Higgins catheter required due to retention Started Urecholine Bowels moved 2 days ago Moving her right shoulder a bit Going to alf on Friday03/02/2021: Trying to get thinner liquids tolerated so she will drink more Checked meds and labs Denies any pain Muscle spasms on the right side reported 03/01/2021: Pt doing pretty well Speech eval will hopefully changed from thickened liquids to thin liquids Stood with PT with max-assist Fibromyalgia diagnosis noted 02/28/2021: Pt doing really well Bowels moved yesterday Antibiotic tolerated of Amoxicillin TID Denies any significant issues but Baclofen is causing a little bit of drowsiness so will monitor that closely 02/27/2021: Pt about the same Urine culture shows proteus, will initiated Amoxicillin 500 TID and DC the Cefepime Baclofen will be helpful for spasms of the right side Bowels are moving 02/26/2021: Patient doing pretty well No BM yet so will address Urine culture is pending but it is proteus Cefepime IV antibiotic maintained 02/25/21: Tolerating UTI treatment Proteus on UCx no sensitivity yet No pain Dependence is noted 02/24/21: Patient slow recovery Minimal conversing UTI dx via straight cath when nurses reported malodorous urine Cefepime maintained 02/23/2021: Slow progress RN had concerns of stroke extension due to nausea CT scan did not show any new stroke 02/22/2021: Pt appears to be very withdrawn No concerns at this current time Dr. Joshi did come in and change a few medications Pt denies any other issues 02/21/2021: Patient seems to be settling in well Just had a shower Expressive aphasia makes it difficult to communicate Remains a max assist No major issues Bowels are moving Incontinent at times Remains a feeder Cardiology consult appreciated Review of Systems General: Fatigue Genitourinary: Retention Neurological: Weakness, Incoordination Objective Exam Vital Signs Vital Signs Date Time Temp Pulse Resp B/P (MAP) Pulse Ox O2 Delivery O2 Flow Rate FiO2 03/03/21 20:30 Room Air 03/03/21 19:53 36.3 84 16 103/67 (79) 95 Capillary Refill : General Appearance: No Apparent Distress, WD/WN, Chronically ill, Obese HEENT: PERRL/EOMI, Normal ENT Inspection, Pharynx Normal Neck: Full Range of Motion, Normal Inspection, Non Tender, Supple, Carotid Bruit Respiratory: Chest Non Tender, Lungs Clear, Normal Breath Sounds, No Accessory Muscle Use, No Respiratory Distress Cardiovascular: Regular Rate, Rhythm, No Edema, No Gallop, No JVD, No Murmur, Normal Peripheral Pulses Gastrointestinal: Normal Bowel Sounds, No Organomegaly, No Pulsatile Mass, Non Tender, Soft Back: Normal Inspection, No CVA Tenderness, No Vertebral Tenderness Extremity: Normal Capillary Refill, Normal Inspection, Normal Range of Motion, Non Tender, No Calf Tenderness, No Pedal Edema Neurologic/Psychiatric: Alert, Oriented x3, Abnormal Gait, Depressed Affect, Facial Droop (Right), Motor Weakness (Right-sided weakness 1/5) Skin: Normal Color, Warm/Dry Lymphatic: No Adenopathy Results/Procedures Lab Patient resulted labs reviewed. FIM Transfers Therapy Code Descriptions/Definitions Functional [place] Measure: 0=Not Assessed/NA 4=Minimal Assistance 1=Total Assistance 5=Supervision or Setup 2=Maximal Assistance 6=Modified [place] 3=Moderate Assistance 7=Complete IndependenceSCALE: Activities may be completed with or without assistive devices. 6-Pvbgiqmkas-oyjeivp completes the activity by him/herself with no assistance from a helper. 5-Set-up or Clean-up Assistance-helper sets up or cleans up; patient completes activity. [place] assists only prior to or following the activity. 4-Supervision or Touching Assistance-helper provides verbal cues and/or touching/steadying and/or contact guard assistance as patient completes activity. Assistance may be provided throughout the activity or intermittently. 3-Partial/Moderate Assistance-helper does LESS THAN HALF the effort. [place] lifts, holds or supports trunk or limbs, but provides less than half the effort. 2-Substantial/Maximal Assistance-helper does MORE THAN HALF the effort. [place] lifts or holds trunk or limbs and provides more than half the effort. 6-Ziczyvkyi-wfghrx does ALL the effort. Patient does none of the effort to complete the activity. Or, the assistance of 2 or more helpers is required for the patient to complete the activity. If activity was not attempted, code reason: 7-Patient Refused. 9-Not Applicable-not attempted and the patient did not perform the activity before the current illness, exacerbation or injury. 10-Not Attempted due to Environmental Limitations-(lack of equipment, weather restraints, etc.). 88-Not Attempted due to Medical Conditions or Safety Concerns. Roll Left to Right (QC): 1 Sit to Lying (QC): 1 Sit to Stand (QC): 1 Chair/Sql-ci-Nykel Xfer(QC): 1 Car Transfer (QC): 1 Gait Training Does the Patient Walk?: No and Walking Goal IS indicated Walk 10 feet (QC): 1 Walk 50 ft with 2 Turns(QC): 1 Walk 150 ft (QC): 1 Walking 10ft/uneven surface-QC: 1 Wheelchair Training Does the Pt Use a Wheelchair?: Yes Distance: 0 Wheel 50 ft with 2 turns (QC): 1 Wheel 150 ft (QC): 1 Type of Wheelchair: Manual Stair Training 1 Step (curb) (QC): 1 4 Steps (QC): 1 12 Steps (QC): 1 Balance Picking up an Object (QC): 1 ADL-Treatment Eating (QC): 5 Oral Hygiene (QC): 7 Bathing Location: Chest Shower/Bathe Self (QC): 2 Upper Body Dressing (QC): 3 Lower Body Dressing (QC): 1 On/Off Footwear (QC): 2 Toileting Hygiene (QC): 1 Toilet Transfer (QC): 1 Assessment/Plan Assessment and Plan Assess & Plan/Chief Complaint Assessment: CVA with right-sided weakness Expressive aphasia Dysarthria Hypertension Chronic atrial fibrillation Oral anticoagulants maintained Obesity UTI 02/24/21 started Cefepime transition to amoxicillin for Proteus Urinary retention requiring Higgins catheter placement 03/02/2021 Plan: Continue current active meds Speech therapy PT and OT Aggressive therapy 02/21/2021: Appreciate cardiology consult Supportive care Aggressive physical therapy 02/22/2021: May need behavioral health Withdrawn today 02/23/2021: Slow recovery Reviewed CT scan 02/24/21: UTI treatment Normal LA Monitor closely 02/25/21: UTI Tx Monitor closely 02/26/2021: Cefepime Await urine culture Bowel regimen 02/27/2021: Change cefepime to amoxicillin per Proteus urine culture results Continue aggressive therapy 02/28/2021: Due to 's health issues she will need to go to skilled 03/01/2021: Skilled at discharge Continue baclofen 03/02/2021: Higgins catheter required due to retention Complete antibiotics for UTI Work on thin liquids 03/03/2021: Maintain Higgins catheter Start Urecholine Complete UTI treatment Discharge to alf on Friday (1) CVA (cerebral vascular accident) Status: Acute (2) Atrial fibrillation (3) Hypertension (4) Obesity (5) Chronic anticoagulation (6) Expressive aphasia (7) Dysarthria (8) Right sided weakness SEAN MARTINS DO Mar 03, 2021 06:45
[2021-03-03 08:01] VITALS: BP 128/69
[2021-03-03] MEDS: SERTRALINE 100 MG (ZOLOFT) TAB PO SCH (08:10)
[2021-03-03] MEDS: AMOXICILLIN 500 MG (POLYMOX) CAP PO SCH ×3 (08:10→20:22)
[2021-03-03] MEDS: busPIRone 5 MG (BUSPAR) TAB PO SCH ×2 (08:10→20:22)
[2021-03-03] MEDS: PANTOPRAZOLE 40 MG (PROTONIX) TAB PO SCH ×2 (08:10→20:22)
[2021-03-03] MEDS: SENNA W/DOCUSATE (SENOKOT S) TABLET PO SCH ×4 (08:10→20:22)
[2021-03-03] MEDS: DOCUSATE SODIUM 100 MG (COLACE) CAP PO SCH ×2 (08:10→20:22)
[2021-03-03] MEDS: APIXABAN 5 MG (ELIQUIS) TABLET PO SCH ×2 (08:10→20:22)
[2021-03-03] MEDS: ASPIRIN 81 MG CHEW (CHILDREN'S ASA) PO SCH (08:11)
[2021-03-03] MEDS: BACLOFEN 10 MG (LIORESAL) TAB PO SCH ×2 (08:11→20:23)
[2021-03-03] MEDS: polyethylene glycoL POWDER 17 GM (MIRALAX) PACK PO SCH ×2 (08:11→20:23)
[2021-03-03] MEDS: DICLOFENAC 1% GEL 100 GM (VOLTAREN) TUBE TOP SCH ×2 (13:50→20:23)
--- NOTE | 2021-03-03 13:56 | Physical Therapy Progress Note ---
Therapy Progress Note Pt refused 3x throughout the morning and afternoon. She will resume therapy as normal on Friday. STEFF GARCIA PT Mar 03, 2021 13:56
[2021-03-03] MEDS: ACETAMINOPHEN 325 MG TABLET PO PRN (13:57)
[2021-03-03 19:53] VITALS: BP 103/67
[2021-03-04] MEDS: BETHANECHOL 25 MG (URECHOLINE) TAB PO SCH ×4 (05:21→19:53)
[2021-03-04 07:28] VITALS: BP 132/60
[2021-03-04] MEDS: busPIRone 5 MG (BUSPAR) TAB PO SCH ×2 (09:59→19:53)
[2021-03-04] MEDS: ASPIRIN 81 MG CHEW (CHILDREN'S ASA) PO SCH (09:59)
[2021-03-04] MEDS: SERTRALINE 100 MG (ZOLOFT) TAB PO SCH (09:59)
[2021-03-04] MEDS: SENNA W/DOCUSATE (SENOKOT S) TABLET PO SCH ×4 (09:59→19:54)
[2021-03-04] MEDS: BACLOFEN 10 MG (LIORESAL) TAB PO SCH ×2 (09:59→19:54)
[2021-03-04] MEDS: DOCUSATE SODIUM 100 MG (COLACE) CAP PO SCH ×2 (09:59→19:53)
[2021-03-04] MEDS: PANTOPRAZOLE 40 MG (PROTONIX) TAB PO SCH ×2 (10:00→19:53)
[2021-03-04] MEDS: APIXABAN 5 MG (ELIQUIS) TABLET PO SCH ×2 (10:00→19:53)
[2021-03-04] MEDS: polyethylene glycoL POWDER 17 GM (MIRALAX) PACK PO SCH ×2 (10:01→19:52)
[2021-03-04] MEDS: DICLOFENAC 1% GEL 100 GM (VOLTAREN) TUBE TOP SCH ×3 (10:01→19:56)
--- NOTE | 2021-03-04 11:24 | PM&R Progress Note ---
Subjective HPI/CC On Admission Date Seen by Provider: Mar 04, 2021 Time Seen by Provider: 11:15 Subjective/Events-last exam 03/04/2021: Completed amoxicillin prison placement Jaquez Discharge plan We will remain with a Higgins catheter with Urecholine and discontinue at the residential when primary care provider evaluates 03/03/2021: Patient doing pretty well Sister at the bedside Higgins catheter required due to retention Started Urecholine Bowels moved 2 days ago Moving her right shoulder a bit Going to residential on Friday03/02/2021: Trying to get thinner liquids tolerated so she will drink more Checked meds and labs Denies any pain Muscle spasms on the right side reported 03/01/2021: Pt doing pretty well Speech eval will hopefully changed from thickened liquids to thin liquids Stood with PT with max-assist Fibromyalgia diagnosis noted 02/28/2021: Pt doing really well Bowels moved yesterday Antibiotic tolerated of Amoxicillin TID Denies any significant issues but Baclofen is causing a little bit of drowsiness so will monitor that closely 02/27/2021: Pt about the same Urine culture shows proteus, will initiated Amoxicillin 500 TID and DC the Cefepime Baclofen will be helpful for spasms of the right side Bowels are moving 02/26/2021: Patient doing pretty well No BM yet so will address Urine culture is pending but it is proteus Cefepime IV antibiotic maintained 02/25/21: Tolerating UTI treatment Proteus on UCx no sensitivity yet No pain Dependence is noted 02/24/21: Patient slow recovery Minimal conversing UTI dx via straight cath when nurses reported malodorous urine Cefepime maintained 02/23/2021: Slow progress RN had concerns of stroke extension due to nausea CT scan did not show any new stroke 02/22/2021: Pt appears to be very withdrawn No concerns at this current time Dr. Joshi did come in and change a few medications Pt denies any other issues 02/21/2021: Patient seems to be settling in well Just had a shower Expressive aphasia makes it difficult to communicate Remains a max assist No major issues Bowels are moving Incontinent at times Remains a feeder Cardiology consult appreciated Review of Systems General: Fatigue Neurological: Weakness, Change in speech Objective Exam Vital Signs Vital Signs Date Time Temp Pulse Resp B/P (MAP) Pulse Ox O2 Delivery O2 Flow Rate FiO2 03/04/21 10:00 Room Air 03/04/21 07:28 36.8 87 18 132/60 (84) 93 Capillary Refill : General Appearance: No Apparent Distress, WD/WN, Chronically ill, Obese HEENT: PERRL/EOMI, Normal ENT Inspection, Pharynx Normal Neck: Full Range of Motion, Normal Inspection, Non Tender, Supple, Carotid Bruit Respiratory: Chest Non Tender, Lungs Clear, Normal Breath Sounds, No Accessory Muscle Use, No Respiratory Distress Cardiovascular: Regular Rate, Rhythm, No Edema, No Gallop, No JVD, No Murmur, Normal Peripheral Pulses Gastrointestinal: Normal Bowel Sounds, No Organomegaly, No Pulsatile Mass, Non Tender, Soft Back: Normal Inspection, No CVA Tenderness, No Vertebral Tenderness Extremity: Normal Capillary Refill, Normal Inspection, Normal Range of Motion, Non Tender, No Calf Tenderness, No Pedal Edema Neurologic/Psychiatric: Alert, Oriented x3, Abnormal Gait, Depressed Affect, Facial Droop (Right), Motor Weakness (Right-sided weakness 1/5) Skin: Normal Color, Warm/Dry Lymphatic: No Adenopathy Results/Procedures Lab Patient resulted labs reviewed. FIM Transfers Therapy Code Descriptions/Definitions Functional [place] Measure: 0=Not Assessed/NA 4=Minimal Assistance 1=Total Assistance 5=Supervision or Setup 2=Maximal Assistance 6=Modified [place] 3=Moderate Assistance 7=Complete IndependenceSCALE: Activities may be completed with or without assistive devices. 1-Ttuwapjwkk-vvzvdjy completes the activity by him/herself with no assistance from a helper. 5-Set-up or Clean-up Assistance-helper sets up or cleans up; patient completes activity. [place] assists only prior to or following the activity. 4-Supervision or Touching Assistance-helper provides verbal cues and/or touching/steadying and/or contact guard assistance as patient completes activity. Assistance may be provided throughout the activity or intermittently. 3-Partial/Moderate Assistance-helper does LESS THAN HALF the effort. [place] lifts, holds or supports trunk or limbs, but provides less than half the effort. 2-Substantial/Maximal Assistance-helper does MORE THAN HALF the effort. [place] lifts or holds trunk or limbs and provides more than half the effort. 0-Zqgzyulsh-rqvres does ALL the effort. Patient does none of the effort to complete the activity. Or, the assistance of 2 or more helpers is required for the patient to complete the activity. If activity was not attempted, code reason: 7-Patient Refused. 9-Not Applicable-not attempted and the patient did not perform the activity before the current illness, exacerbation or injury. 10-Not Attempted due to Environmental Limitations-(lack of equipment, weather restraints, etc.). 88-Not Attempted due to Medical Conditions or Safety Concerns. Roll Left to Right (QC): 1 Sit to Lying (QC): 1 Sit to Stand (QC): 1 Chair/Ufl-ws-Gykqm Xfer(QC): 1 Car Transfer (QC): 1 Gait Training Does the Patient Walk?: No and Walking Goal IS indicated Walk 10 feet (QC): 1 Walk 50 ft with 2 Turns(QC): 1 Walk 150 ft (QC): 1 Walking 10ft/uneven surface-QC: 1 Wheelchair Training Does the Pt Use a Wheelchair?: Yes Distance: 0 Wheel 50 ft with 2 turns (QC): 1 Wheel 150 ft (QC): 1 Type of Wheelchair: Manual Stair Training 1 Step (curb) (QC): 1 4 Steps (QC): 1 12 Steps (QC): 1 Balance Picking up an Object (QC): 1 ADL-Treatment Eating (QC): 5 Oral Hygiene (QC): 7 Bathing Location: Chest Shower/Bathe Self (QC): 2 Upper Body Dressing (QC): 3 Lower Body Dressing (QC): 1 On/Off Footwear (QC): 2 Toileting Hygiene (QC): 1 Toilet Transfer (QC): 1 Assessment/Plan Assessment and Plan Assess & Plan/Chief Complaint Assessment: CVA with right-sided weakness Expressive aphasia Dysarthria Hypertension Chronic atrial fibrillation Oral anticoagulants maintained Obesity UTI 02/24/21 started Cefepime transition to amoxicillin for Proteus Urinary retention requiring Higgins catheter placement 03/02/2021 Plan: Continue current active meds Speech therapy PT and OT Aggressive therapy 02/21/2021: Appreciate cardiology consult Supportive care Aggressive physical therapy 02/22/2021: May need behavioral health Withdrawn today 02/23/2021: Slow recovery Reviewed CT scan 02/24/21: UTI treatment Normal LA Monitor closely 02/25/21: UTI Tx Monitor closely 02/26/2021: Cefepime Await urine culture Bowel regimen 02/27/2021: Change cefepime to amoxicillin per Proteus urine culture results Continue aggressive therapy 02/28/2021: Due to 's health issues she will need to go to skilled 03/01/2021: Skilled at discharge Continue baclofen 03/02/2021: Higgins catheter required due to retention Complete antibiotics for UTI Work on thin liquids 03/03/2021: Maintain Higgins catheter Start Urecholine Complete UTI treatment Discharge to residential on Friday03/04/2021: Maintain Higgins catheter at residential discharge tomorrow Urecholine (1) CVA (cerebral vascular accident) Status: Acute (2) Atrial fibrillation (3) Hypertension (4) Obesity (5) Chronic anticoagulation (6) Expressive aphasia (7) Dysarthria (8) Right sided weakness SEAN MARTINS DO Mar 04, 2021 11:24
[2021-03-04 20:00] VITALS: BP 120/78
[2021-03-05] MEDS ORDERED: BACL10TA PO (05:24)
[2021-03-05] MEDS ORDERED: TRM50T PO (05:24)
[2021-03-05] MEDS ORDERED: Bethanechol Chl PO (05:24)
[2021-03-05] MEDS ORDERED: BUSP5TAB59 PO (05:24)
[2021-03-05] MEDS ORDERED: APIX5TAB PO (05:24)
--- NOTE | 2021-03-05 05:25 | Discharge Inst-Skilled Nursing ---
Discharge Inst-Skilled NF Reconcile Patient Problems Problems Reviewed?: Yes Patient Instructions Patient Problems: CVA Goal: [place] Consult/Follow Up/Orders Follow Up Appt.: PCP 2 weeks Skilled NF Admit to: Certification (SNF) I certify that SNF services are required to be given on an inpatient basis because of the above named patient's need for longterm care on a continuing basis for the conditions(s) for which he/she was receiving inpatient hospital services prior to his/her transfer to the SNF. Shelter Facility Order: Nursing Services, Nurse Practitioner Per Diem-Evaluate & Treat, Physical Therapy-Evaluate & Treat, Speech Language-Evaluate & Treat Oxygen Delivery Method: Room Air Discharge Diet: Regular Diet, Other Diet (slightly thickened liquids) Resuscitation Status: Full Code New & Resume Previous Orders New Medications: Apixaban (Eliquis) 5 Mg Tablet 5 MG PO BID for 365 Days, TAB Baclofen (Baclofen) 10 Mg Tablet 5 MG PO BID for 30 Days, TAB [Bethanechol Chl] () 25 MG TAB 25 MG PO ACHS for 30 Days, TAB Tramadol HCl (Tramadol HCl) 50 Mg Tablet 50 MG PO Q6HR PRN for PAIN-MODERATE (5-7), #30 TAB Continued Medications: Acetaminophen (Tylenol) 325 Mg Tablet 650 MG PO Q4H PRN for PAIN-MILD (1-4), TAB Aspirin (Aspirin) 81 Mg Tab.chew 81 MG PO DAILY, TAB TAKE WITH FOOD Atorvastatin Calcium (Atorvastatin Calcium) 80 Mg Tablet 80 MG PO DAILY, TAB Buspirone HCl (Buspirone HCl) 5 Mg Tablet 5 MG PO BID, #30 TAB (This prescription has been renewed) Clopidogrel Bisulfate (Clopidogrel) 75 Mg Tablet 75 MG PO DAILY, TAB Pantoprazole Sodium (Pantoprazole Sodium) 40 Mg Tablet.dr 40 MG PO BID, TAB Sennosides/Docusate Sodium (Senna-S Tablet) 1 Each Tablet 1 EACH PO BID, TAB Sertraline HCl (Sertraline HCl) 100 Mg Tablet 100 MG PO DAILY, TAB Heena Cain Mar 05, 2021 05:24 HEENA CAIN DO Mar 05, 2021 05:25
--- NOTE | 2021-03-05 05:25 | Discharge Summary ---
Diagnosis/Chief Complaint Date of Admission Feb 20, 2021 at 10:40 Date of Discharge Discharge Date: Mar 05, 2021 Discharge Diagnosis Assessment: CVA with right-sided weakness Expressive aphasia Dysarthria Hypertension Chronic atrial fibrillation Oral anticoagulants maintained Obesity UTI 02/24/21 started Cefepime transition to amoxicillin for Proteus Urinary retention requiring Higgins catheter placement 03/02/2021 Plan: Continue current active meds Speech therapy PT and OT Aggressive therapy 02/21/2021: Appreciate cardiology consult Supportive care Aggressive physical therapy 02/22/2021: May need behavioral health Withdrawn today 02/23/2021: Slow recovery Reviewed CT scan 02/24/21: UTI treatment Normal LA Monitor closely 02/25/21: UTI Tx Monitor closely 02/26/2021: Cefepime Await urine culture Bowel regimen 02/27/2021: Change cefepime to amoxicillin per Proteus urine culture results Continue aggressive therapy 02/28/2021: Due to 's health issues she will need to go to skilled 03/01/2021: Skilled at discharge Continue baclofen 03/02/2021: Higgins catheter required due to retention Complete antibiotics for UTI Work on thin liquids 03/03/2021: Maintain Higgins catheter Start Urecholine Complete UTI treatment Discharge to group home on Friday03/04/2021: Maintain Higgins catheter at group home discharge tomorrow Urecholine (1) CVA (cerebral vascular accident) Status: Acute (2) Atrial fibrillation (3) Hypertension (4) Obesity (5) Chronic anticoagulation (6) Expressive aphasia (7) Dysarthria (8) Right sided weakness Discharge Summary Discharge Physical Examination Allergies: Coded Allergies: hydrocodone (Unverified Allergy, Unknown, 06/22/14) Vitals & I&Os Vital Signs Date Time Temp Pulse Resp B/P (MAP) Pulse Ox O2 Delivery O2 Flow Rate FiO2 03/05/21 14:28 36.5 78 16 133/64 94 Room Air General Appearance: Alert, Oriented X3, Cooperative Respiratory: Clear to Auscultation Cardiovascular: Regular Rate Psych/Mental Status: Mental Status NL Hospital Course Was the Problem List Reviewed?: Yes Hospital course: Pt had a fourteen day hospital course in inpatient rehab after suffering a CVA with expressive aphasia and dysarthria. Cardiology consulted, they placed her on both Eliquis and maintained Plavix and Aspirin and Pt did have a UTI, placed on antibiotics and transitioned to Amoxicillin, that was completed for proteus. Urinary retention required indwelling catheter, she will remain with that at the group home, while taking Urecholine to resolve the retention. She will remain at the group home until independent status can be obtained. Labs (last 24 hrs) Laboratory Tests 02/20/21 10:40: Lab Scanned Report Referred Lab Report 02/21/21 04:45: White Blood Count 8.7, Red Blood Count 4.71, Hemoglobin 13.1, Hematocrit 42, Mean Corpuscular Volume 88, Mean Corpuscular Hemoglobin 28, Mean Corpuscular Hemoglobin Concent 32, Red Cell Distribution Width 12.6, Platelet Count 325, Mean Platelet Volume 9.3, Immature Granulocyte % (Auto) 0, Neutrophils (%) (Auto) 61, Lymphocytes (%) (Auto) 28, Monocytes (%) (Auto) 8, Eosinophils (%) (Auto) 2, Basophils (%) (Auto) 1, Neutrophils # (Auto) 5.3, Lymphocytes # (Auto) 2.5, Monocytes # (Auto) 0.7, Eosinophils # (Auto) 0.2, Basophils # (Auto) 0.1, Immature Granulocyte # (Auto) 0.0, Sodium Level 137, Potassium Level 4.5, Chloride Level 101, Carbon Dioxide Level 26, Anion Gap 10, Blood Urea Nitrogen 22H, Creatinine 0.81, Estimat Glomerular Filtration Rate 70, BUN/Creatinine Ratio 27, Glucose Level 115H, Calcium Level 9.8, Corrected Calcium 9.9, Total Bilirubin 0.4, Aspartate Amino Transf (AST/SGOT) 59H, Alanine Aminotransferase (ALT/SGPT) 65H, Alkaline Phosphatase 78, Total Protein 7.1, Albumin 3.9 02/24/21 06:05: White Blood Count 11.0, Red Blood Count 4.66, Hemoglobin 13.1, Hematocrit 43, Mean Corpuscular Volume 92, Mean Corpuscular Hemoglobin 28, Mean Corpuscular Hemoglobin Concent 31L, Red Cell Distribution Width 12.9, Platelet Count 325, Mean Platelet Volume 9.2, Immature Granulocyte % (Auto) 0, Neutrophils (%) (Auto) 71, Lymphocytes (%) (Auto) 21, Monocytes (%) (Auto) 7, Eosinophils (%) (Auto) 1, Basophils (%) (Auto) 1, Neutrophils # (Auto) 7.8, Lymphocytes # (Auto) 2.3, Monocytes # (Auto) 0.8, Eosinophils # (Auto) 0.1, Basophils # (Auto) 0.1, Immature Granulocyte # (Auto) 0.0, Sodium Level 140, Potassium Level 4.4, Ch loride Level 103, Carbon Dioxide Level 27, Anion Gap 10, Blood Urea Nitrogen 27H , Creatinine 0.85, Estimat Glomerular Filtration Rate 67, BUN/Creatinine Ratio 32, Glucose Level 107H, Calcium Level 10.1, Corrected Calcium 10.1, Total Bilirubin 0.4, Aspartate Amino Transf (AST/SGOT) 22, Alanine Aminotransferase (ALT/SGPT) 43, Alkaline Phosphatase 83, Total Protein 7.5, Albumin 4.0 02/24/21 06:40: Urine Color YELLOW, Urine Clarity TURBID, Urine pH 6.0, Urine Specific Randolph 1.025H, Urine Protein 2+H, Urine Glucose (UA) NEGATIVE, Urine Ketones NEGATIVE, Urine Nitrite NEGATIVE, Urine Bilirubin NEGATIVE, Urine Urobilinogen 1.0, Urine Leukocyte Esterase 2+H, Urine RBC (Auto) 3+H, Urine RBC >100H, Urine WBC >100H, Urine Crystals NONE, Urine Bacteria LARGEH, Urine Casts NONE, Urine Mucus LARGEH , Urine Culture Indicated YES 02/24/21 11:20: Lactic Acid Level 1.35 02/26/21 05:35: White Blood Count 7.7, Red Blood Count 4.31, Hemoglobin 12.2, Hematocrit 39, Mean Corpuscular Volume 90, Mean Corpuscular Hemoglobin 28, Mean Corpuscular Hemoglobin Concent 32, Red Cell Distribution Width 12.2, Platelet Count 350, Mean Platelet Volume 9.2, Immature Granulocyte % (Auto) 0, Neutrophils (%) (Auto) 56, Lymphocytes (%) (Auto) 32, Monocytes (%) (Auto) 10, Eosinophils (%) (Auto) 2, Basophils (%) (Auto) 1, Neutrophils # (Auto) 4.3, Lymphocytes # (Auto) 2.4, Monocytes # (Auto) 0.8, Eosinophils # (Auto) 0.2, Basophils # (Auto) 0.1, Immature Granulocyte # (Auto) 0.0, Sodium Level 139, Potassium Level 3.9, Chloride Level 102, Carbon Dioxide Level 29, Anion Gap 8, Blood Urea Nitrogen 18, Creatinine 0.73, Estimat Glomerular Filtration Rate 79, BUN/Creatinine Ratio 25, Glucose Level 99, Calcium Level 9.7, Corrected Calcium 10.0, Total Bilirubin 0.3, Aspartate Amino Transf (AST/SGOT) 17, Alanine Aminotransferase (ALT/SGPT) 30, Alkaline Phosphatase 75, Total Protein 6.8, Albumin 3.6 03/02/21 14:30: SARS-CoV-2 RNA (RT-PCR) Not Detected 03/05/21 05:45: White Blood Count 6.8, Red Blood Count 4.43, Hemoglobin 12.4, Hematocrit 40, Mean Corpuscular Volume 91, Mean Corpuscular Hemoglobin 28, Mean Corpuscular Hemoglobin Concent 31L, Red Cell Distribution Width 12.4, Platelet Count 337, Mean Platelet Volume 8.7L, Immature Granulocyte % (Auto) 0, Neutrophils (%) (Auto) 48, Lymphocytes (%) (Auto) 42, Monocytes (%) (Auto) 6, Eosinophils (%) (Auto) 3, Basophils (%) (Auto) 1, Neutrophils # (Auto) 3.2, Lymphocytes # (Auto) 2.9, Monocytes # (Auto) 0.4, Eosinophils # (Auto) 0.2, Basophils # (Auto) 0.1, Immature Granulocyte # (Auto) 0.0, Sodium Level 139, Potassium Level 4.5, Chloride Level 102, Carbon Dioxide Level 30, Anion Gap 7, Blood Urea Nitrogen 16, Creatinine 0.66, Estimat Glomerular Filtration Rate 89, BUN/Creatinine Ratio 24, Glucose Level 100, Calcium Level 9.5, Corrected Calcium 9.9, Total Bilirubin 0.3, Aspartate Amino Transf (AST/SGOT) 24, Alanine Aminotransferase (ALT/SGPT) 28, Alkaline Phosphatase 93, Total Protein 6.6, Albumin 3.5 03/05/21 09:15: SARS-CoV-2 RNA (RT-PCR) Not Detected Microbiology 02/24/21 Urine Culture - Final, Complete Proteus mirabilis Pending Labs Microbiology Date/Time Source Procedure Growth Status 02/24/21 06:40 Urine Straight Cath, In/Out Urine Culture - Final Proteus mirabilis Complete Laboratory Tests 02/20/21 10:40: Lab Scanned Report Referred Lab Report 02/21/21 04:45: White Blood Count 8.7, Red Blood Count 4.71, Hemoglobin 13.1, Hematocrit 42, Mean Corpuscular Volume 88, Mean Corpuscular Hemoglobin 28, Mean Corpuscular Hemoglobin Concent 32, Red Cell Distribution Width 12.6, Platelet Count 325, Mean Platelet Volume 9.3, Immature Granulocyte % (Auto) 0, Neutrophils (%) (Auto) 61, Lymphocytes (%) (Auto) 28, Monocytes (%) (Auto) 8, Eosinophils (%) (Auto) 2, Basophils (%) (Auto) 1, Neutrophils # (Auto) 5.3, Lymphocytes # (Auto) 2.5, Monocytes # (Auto) 0.7, Eosinophils # (Auto) 0.2, Basophils # (Auto) 0.1, Immature Granulocyte # (Auto) 0.0, Sodium Level 137, Potassium Level 4.5, Chloride Level 101, Carbon Dioxide Level 26, Anion Gap 10, Blood Urea Nitrogen 22, Creatinine 0.81, Estimat Glomerular Filtration Rate 70, BUN/Creatinine Ratio 27, Glucose Level 115, Calcium Level 9.8, Corrected Calcium 9.9, Total Bilirubin 0.4, Aspartate Amino Transf (AST/SGOT) 59, Alanine Aminotransferase (ALT/SGPT) 65, Alkaline Phosphatase 78, Total Protein 7.1, Albumin 3.9 02/24/21 06:05: White Blood Count 11.0, Red Blood Count 4.66, Hemoglobin 13.1, Hematocrit 43, Mean Corpuscular Volume 92, Mean Corpuscular Hemoglobin 28, Mean Corpuscular Hemoglobin Concent 31, Red Cell Distribution Width 12.9, Platelet Count 325, Mean Platelet Volume 9.2, Immature Granulocyte % (Auto) 0, Neutrophils (%) (Auto) 71, Lymphocytes (%) (Auto) 21, Monocytes (%) (Auto) 7, Eosinophils (%) (Auto) 1, Basophils (%) (Auto) 1, Neutrophils # (Auto) 7.8, Lymphocytes # (Auto) 2.3, Monocytes # (Auto) 0.8, Eosinophils # (Auto) 0.1, Basophils # (Auto) 0.1, Immature Granulocyte # (Auto) 0.0, Sodium Level 140, Potassium Level 4.4, Chloride Level 103, Carbon Dioxide Level 27, Anion Gap 10, Blood Urea Nitrogen 27, Creatinine 0.85, Estimat Glomerular Filtration Rate 67, BUN/Creatinine Ratio 32, Glucose Level 107, Calcium Level 10.1, Corrected Calcium 10.1, Total Bilirubin 0.4, Aspartate Amino Transf (AST/SGOT) 22, Alanine Aminotransferase (ALT/SGPT) 43, Alkaline Phosphatase 83, Total Protein 7.5, Albumin 4.0 02/24/21 06:40: Urine Color YELLOW, Urine Clarity TURBID, Urine pH 6.0, Urine Specific Randolph 1.025, Urine Protein 2+, Urine Glucose (UA) NEGATIVE, Urine Ketones NEGATIVE, Urine Nitrite NEGATIVE, Urine Bilirubin NEGATIVE, Urine Urobilinogen 1.0, Urine Leukocyte Esterase 2+, Urine RBC (Auto) 3+, Urine RBC >100, Urine WBC >100, Urine Crystals NONE, Urine Bacteria LARGE, Urine Casts NONE, Urine Mucus LARGE, Urine Culture Indicated YES 02/24/21 11:20: Lactic Acid Level 1.35 02/26/21 05:35: White Blood Count 7.7, Red Blood Count 4.31, Hemoglobin 12.2, Hematocrit 39, Mean Corpuscular Volume 90, Mean Corpuscular Hemoglobin 28, Mean Corpuscular Hemoglobin Concent 32, Red Cell Distribution Width 12.2, Platelet Count 350, Mean Platelet Volume 9.2, Immature Granulocyte % (Auto) 0, Neutrophils (%) (Auto) 56, Lymphocytes (%) (Auto) 32, Monocytes (%) (Auto) 10, Eosinophils (%) (Auto) 2, Basophils (%) (Auto) 1, Neutrophils # (Auto) 4.3, Lymphocytes # (Auto) 2.4, Monocytes # (Auto) 0.8, Eosinophils # (Auto) 0.2, Basophils # (Auto) 0.1, Immature Granulocyte # (Auto) 0.0, Sodium Level 139, Potassium Level 3.9, Chloride Level 102, Carbon Dioxide Level 29, Anion Gap 8, Blood Urea Nitrogen 18, Creatinine 0.73, Estimat Glomerular Filtration Rate 79, BUN/Creatinine Ratio 25, Glucose Level 99, Calcium Level 9.7, Corrected Calcium 10.0, Total Bilirubin 0.3, Aspartate Amino Transf (AST/SGOT) 17, Alanine Aminotransferase (ALT/SGPT) 30, Alkaline Phosphatase 75, Total Protein 6.8, Albumin 3.6 03/02/21 14:30: SARS-CoV-2 RNA (RT-PCR) Not Detected 03/05/21 05:45: White Blood Count 6.8, Red Blood Count 4.43, Hemoglobin 12.4, Hematocrit 40, Mean Corpuscular Volume 91, Mean Corpuscular Hemoglobin 28, Mean Corpuscular Hemoglobin Concent 31, Red Cell Distribution Width 12.4, Platelet Count 337, Mean Platelet Volume 8.7, Immature Granulocyte % (Auto) 0, Neutrophils (%) (Auto) 48, Lymphocytes (%) (Auto) 42, Monocytes (%) (Auto) 6, Eosinophils (%) (Auto) 3, Basophils (%) (Auto) 1, Neutrophils # (Auto) 3.2, Lymphocytes # (Auto) 2.9, Monocytes # (Auto) 0.4, Eosinophils # (Auto) 0.2, Basophils # (Auto) 0.1, Immature Granulocyte # (Auto) 0.0, Sodium Level 139, Potassium Level 4.5, Chloride Level 102, Carbon Dioxide Level 30, Anion Gap 7, Blood Urea Nitrogen 16, Creatinine 0.66, Estimat Glomerular Filtration Rate 89, BUN/Creatinine Ratio 24, Glucose Level 100, Calcium Level 9.5, Corrected Calcium 9.9, Total Bilirubin 0.3, Aspartate Amino Transf (AST/SGOT) 24, Alanine Aminotransferase (ALT/SGPT) 28, Alkaline Phosphatase 93, Total Protein 6.6, Albumin 3.5 03/05/21 09:15: SARS-CoV-2 RNA (RT-PCR) Not Detected Discharge Home Medications: Active Scripts Active Tramadol HCl 50 Mg Tablet 50 Mg PO Q6HR PRN Eliquis (Apixaban) 5 Mg Tablet 5 Mg PO BID 365 Days Baclofen 10 Mg Tablet 5 Mg PO BID 30 Days [Bethanechol Chl] 25 MG Tab 25 Mg PO ACHS 30 Days Buspirone HCl 5 Mg Tablet 5 Mg PO BID Reported Pantoprazole Sodium 40 Mg Tablet.dr 40 Mg PO BID Tylenol (Acetaminophen) 325 Mg Tablet 650 Mg PO Q4H PRN Clopidogrel (Clopidogrel Bisulfate) 75 Mg Tablet 75 Mg PO DAILY Sertraline HCl 100 Mg Tablet 100 Mg PO DAILY Senna-S Tablet (Sennosides/Docusate Sodium) 1 Each Tablet 1 Each PO BID Atorvastatin Calcium 80 Mg Tablet 80 Mg PO DAILY Aspirin 81 Mg Tab.chew 81 Mg PO DAILY TAKE WITH FOOD Instructions to patient/family Please see electronic discharge instructions given to patient. Diagnosis/Problems Diagnosis/Problems (1) CVA (cerebral vascular accident) Status: Acute (2) Atrial fibrillation (3) Hypertension (4) Obesity (5) Chronic anticoagulation (6) Expressive aphasia (7) Dysarthria (8) Right sided weakness SEAN MARTINS DO Mar 05, 2021 05:25
[2021-03-05] MEDS: BETHANECHOL 25 MG (URECHOLINE) TAB PO SCH ×2 (05:47→11:52)
[2021-03-05 05:55] LABS: BASOPHILS # (AUTO) 0.1 10^3/uL (0.0-0.1); BASOPHILS % (AUTO) 1 % (0-10); EOSINOPHILS # (AUTO) 0.2 10^3/uL (0.0-0.3); EOSINOPHILS % (AUTO) 3 % (0-10); HEMATOCRIT 40 % (35-52); HEMOGLOBIN 12.4 g/dL (11.5-16.0); LYMPHOCYTES # (AUTO) 2.9 10^3/uL (1.0-4.0); LYMPHOCYTES % (AUTO) 42 % (12-44); MEAN CORPUSCULAR HEMOGLOBIN 28 pg (25-34); MEAN CORPUSCULAR HGB CONC 31 g/dL (32-36); MEAN CORPUSCULAR VOLUME 91 fL (80-99); MEAN PLATELET VOLUME 8.7 fL (9.0-12.2); MONOCYTES # (AUTO) 0.4 10^3/uL (0.0-1.0); MONOCYTES % (AUTO) 6 % (0-12); NEUTROPHILS # (AUTO) 3.2 10^3/uL (1.8-7.8); NEUTROPHILS % (AUTO) 48 % (42-75); PLATELET COUNT 337 10^3/uL (130-400); WHITE BLOOD COUNT 6.8 10^3/uL (4.3-11.0)
[2021-03-05 06:15] LABS: ALBUMIN 3.5 GM/DL (3.2-4.5)
[2021-03-05 06:16] LABS: POTASSIUM 4.5 MMOL/L (3.6-5.0)
[2021-03-05 06:17] LABS: CALCIUM 9.5 MG/DL (8.5-10.1)
[2021-03-05 06:18] LABS: TOTAL PROTEIN 6.6 GM/DL (6.4-8.2)
[2021-03-05 06:20] LABS: BILIRUBIN,TOTAL 0.3 MG/DL (0.1-1.0)
[2021-03-05 06:22] LABS: CREATININE SERUM 0.66 MG/DL (0.60-1.30)
[2021-03-05 07:52] VITALS: BP 133/64
--- NOTE | 2021-03-05 08:26 | Physical Therapy Daily Note ---
PT Daily Note-Current Subjective Patient in shower room pre tx, agrees to PT, obviously has some pain or is uncomfortable but cannot explain or point to where it is. Will be co-treating with OT due to poor patient mobility, strength, endurance, right hemiparesis, coordinate UE and LE during activity, safety and reduce risk of falls. Appearance Patient in bed post tx with nurse call, phone, tray, all needs met, OT to continue to work with patient for a bit. Mental Status Patient Orientation: Person, Unable to Assess, Non-Verbal/Aphasic Transfers SCALE: Activities may be completed with or without assistive devices. 1-Cbchobtemm-pfngdrz completes the activity by him/herself with no assistance from a helper. 5-Set-up or Clean-up Assistance-helper sets up or cleans up; patient completes activity. [place] assists only prior to or following the activity. 4-Supervision or Touching Assistance-helper provides verbal cues and/or touching/steadying and/or contact guard assistance as patient completes activity. Assistance may be provided throughout the activity or intermittently. 3-Partial/Moderate Assistance-helper does LESS THAN HALF the effort. [place] lifts, holds or supports trunk or limbs, but provides less than half the effort. 2-Substantial/Maximal Assistance-helper does MORE THAN HALF the effort. [place] lifts or holds trunk or limbs and provides more than half the effort. 5-Ugdsadsom-nfjssf does ALL the effort. Patient does none of the effort to complete the activity. Or, the assistance of 2 or more helpers is required for the patient to complete the activity. If activity was not attempted, code reason: 7-Patient Refused. 9-Not Applicable-not attempted and the patient did not perform the activity before the current illness, exacerbation or injury. 10-Not Attempted due to Environmental Limitations-(lack of equipment, weather restraints, etc.). 88-Not Attempted due to Medical Conditions or Safety Concerns. Roll Left & Right (QC): 2 Sit to Lying (QC): 1 Lying to Sitting/Side of Bed(Q: 1 Sit to Stand (QC): 1 Chair/Wiw-ya-Bccob Xfer(QC): 1 Toilet Transfer (QC): 1 Car Transfer (QC): 1 Patient performs bed mobility with max assist, supine <-> sit and sit <-> stand dependent, transfers and car transfer dependent. Patient is in shower room with OT and needs to complete dressing, dependent standing to complete dressing and cleaning from a BM. Gait Training Walk 10 feet (QC): 88 Walk 50 ft with 2 Turns(QC): 88 Walk 150 ft (QC): 88 Walking 10ft/uneven surface-QC: 88 Wheelchair Training Does the Pt Use a Wheelchair?: Yes Wheel 50 ft with 2 turns (QC): 2 Wheel 150 ft (QC): 2 Type of Wheelchair: Manual Patient can propel a manual WC 300' with max assist, she can use her left arm or leg to help propel but cannot coordinate using both of them at the same time. Stair Training 1 Step (curb) (QC): 88 4 Steps (QC): 88 12 Steps (QC): 88 Balance Picking up an Object (QC): 88 Treatments PT performed standing, transfers, WC mobility, OT performed dressing, UE positioning and safety during activity, assist with transfers Assessment Current Status: Poor Progress Patient continues to decline in functional mobility and motivation. PT Short Term Goals Short Term Goals Time Frame: Mar 06, 2021 Roll Left & Right: 3 Sit to lyin Lying to sitting on side of be: 3 Sit to stand: 3 Chair/hta-qe-xwdcl transfer: 3 Toilet transfer: 3 Car transfer: 3 Walk 10 feet: 2 Walk 50 feet with two turns: 2 Walk 150 feet: 2 Walking 10ft on uneven surface: 2 1 step (curb): 2 4 steps: 2 12 steps: 2 Picking up objects: 2 Wheel 50ft w/2 turns: 3 Wheel 150 feet: 3 Type: Manual PT Hair And Makeup Designer Goals Senior Care Goals PT Senior Care Goals Time Frame: Mar 20, 2021 Roll Left & Right (QC): 5 Sit to Lying (QC): 5 Lying-Sitting on Side/Bed(QC): 5 Sit to Stand (QC): 5 Chair/Nqg-ha-Ekbve Xfer(QC): 5 Toilet Transfer (QC): 5 Car Transfer (QC): 5 Does the Patient Walk: No and Walking Goal IS indicated Walk 10 feet (QC): 4 Walk 50ft with 2 Turns (QC): 4 Walk 150 ft (QC): 4 Walking 10ft on Uneven Surface: 4 1 Step (curb) (QC): 4 4 Steps (QC): 4 12 Steps (QC): 4 Picking up an Object (QC): 4 Does the Pt use WC or Scooter?: Yes Wheel 50 feet with 2 turns (QC: 5 Type: Manual Wheel 150 feet: 5 Type: Manual PT Plan Problem List Problem List: Activity Tolerance, Functional Strength, Safety, Balance, Gait, Transfer, Bed Mobility, ROM Treatment/Plan Treatment Plan: Continue Plan of Care Treatment Plan: Bed Mobility, Concurrent Therapy, Education, Functional Activity Kourtney, Functional Strength, Group Therapy, Gait, Safety, Therapeutic Exercise, Transfers Treatment Duration: Apr 03, 2021 Frequency: At least 5 of 7 days/Wk (IRF) Estimated Hrs Per Day: 1.5 hours per day Patient and/or Family Agrees t: Yes Safety Risks/Education Patient Education: Transfer Techniques, Correct Positioning, W/C Management, Safety Issues Teaching Recipient: Patient Teaching Methods: Demonstration, Discussion Response to Teaching: Reinforcement Needed Time/GCodes Time In: 0800 Time Out: 0820 Total Billed Treatment Time: 20 Total Billed Treatment 1 visit FA 20' co-treated with OT for 20' ELAINE MINAYA PT Mar 05, 2021 08:26
--- NOTE | 2021-03-05 08:31 | Occupational Ther Daily Note ---
OT Current Status-Daily Note Subjective Pt. dozing lying in bed. When asked how she was doing this morning she nodded and replied "yeah". Pt. pleasant, agreed to therapy. Mental Status/Objective Patient Orientation: Person, Place, Non-Verbal/Aphasic, Time, Situation Attachments: Higgins Catheter ADL-Treatment Pt. agreed to shower. Pt. rolled to R side independently and held in place. Pt. Max A. from supine to sitting EOB. Pt. transferred with max A x2 for safety to shower chair. Pt. transported to large shower room via shower chair for cleansing. Pt. wiped face with warm wet wash cloth but when asked to complete the rest of cleansing shook head "no". Pt. required assistance to cleanse rest of body, pt has demonstrated ability to cleanse chest and abdomen, to complete shower. Pt. expressed via facial expressions and groans that the shower chair was uncomfortable, once dried off as much as possible gait belt donned Pt. was transferred from shower chair to w/c. Upper body dressing Mod A and gait belt. Max A x2 for LB dressing. Don/doff footwear were completed Max A. Therapy Code Descriptions/Definitions Functional [place] Measure: 0=Not Assessed/NA 4=Minimal Assistance 1=Total Assistance 5=Supervision or Setup 2=Maximal Assistance 6=Modified [place] 3=Moderate Assistance 7=Complete IndependenceSCALE: Activities may be completed with or without assistive devices. 0-Zqarxbjgdw-cyptbee completes the activity by him/herself with no assistance from a helper. 5-Set-up or Clean-up Assistance-helper sets up or cleans up; patient completes activity. [place] assists only prior to or following the activity. 4-Supervision or Touching Assistance-helper provides verbal cues and/or touching/steadying and/or contact guard assistance as patient completes activity. Assistance may be provided throughout the activity or intermittently. 3-Partial/Moderate Assistance-helper does LESS THAN HALF the effort. [place] lifts, holds or supports trunk or limbs, but provides less than half the effort. 2-Substantial/Maximal Assistance-helper does MORE THAN HALF the effort. [place] lifts or holds trunk or limbs and provides more than half the effort. 9-Acjkjayvt-fqwzuw does ALL the effort. Patient does none of the effort to complete the activity. Or, the assistance of 2 or more helpers is required for the patient to complete the activity. If activity was not attempted, code reason: 7-Patient Refused. 9-Not Applicable-not attempted and the patient did not perform the activity before the current illness, exacerbation or injury. 10-Not Attempted due to Environmental Limitations-(lack of equipment, weather restraints, etc.). 88-Not Attempted due to Medical Conditions or Safety Concerns. Eating (QC): 5 (Cut food, open containers) Oral Hygiene (QC): 5 (After set up, pt able to complete oral hygiene by self.) Shower/Bathe Self (QC): 2 Upper Body Dressing (QC): 3 (Mod A sitting in w/c) Lower Body Dressing (QC): 1 (2 person assist for hiking pants over hips.) On/Off Footwear: 2 Toileting Hygiene (QC): 1 (incontinent and unable to cleanse self) Toilet Transfer (QC): 1 (Assist x2 for transfer. Does refuse to transfer to BSC/toilet for toileting.) OT/PT co-treat ([id number]), skills of 2 clinicians required to decrease fall risk, increase mobility and functional movement. PT focusing on transfers, w/c mobility and bed mobility while OT focusing on ADLs and functional movement. Max A for SPT, 2nd person assist for safety due to pt's increased pain with R LE. Pt utilizes L UE to propel w/c, declines to use L LE. After session, pt lying in bed with call light/phone in reach. All needs met in room. OT Short Term Goals Short Term Goals Time Frame: Mar 06, 2021 Toileting hygiene: 3 Shower/bathe self: 3 Upper body dressin Lower body dressin OT Custodial Goals Custodial Goals Time Frame: Mar 23, 2021 Eating (QC): 5 (met) Oral Hygiene (QC): 5 (met) Toileting Hygiene (QC): 4 (not met) Shower/Bathe Self (QC): 4 (not met) Upper Body Dressing (QC): 5 (not met) Lower Body Dressing (QC): 4 (not met) On/Off Footwear (QC): 4 (not met) Additional Goals: 1-Demonstrate ADL Tasks, 2-Verbalize Understanding, 3- ImproveStrength/Kourtney 1=Demonstrate adherence to instructed precautions during ADL tasks. 2=Patient will verbalize/demonstrate understanding of assistive devices/modifications for ADL. 3=Patient will improve strength/tolerance for activity to enable patient to perform ADL's. OT Education/Plan Problem List/Assessment Assessment: Decreased Activ Tolerance, Decreased Safety Aware, Decreased UE Strength, Impaired Coordination, Impaired Funct Balance, Impaired Self-Care Skills, Restricted Funct UE ROM Discharge Recommendations Plan/Recommendations: Discharge/Goals Met (Pt to discharge to SNF today) Therapy Discharge Recommendati: 24 Hour Supervision, Post Acute OT Treatment Plan/Plan of Care Patient would benefit from OT for education, treatment and training to promote independence in ADL's, mobility, safety and/or upper extremity function for ADL's. Plan of Care: ADL Retraining, Functional Mobility, Group Exercise/Act as Ind, UE Funct Exercise/Act, UE Neuromus Re-Ed/Coord Treatment Duration: Mar 23, 2021 Frequency: At least 5 of 7 days/Wk (IRF) Estimated Hrs Per Day: 1.5 hours per day Rehab Potential: Fair Time/GCodes Start Time: 07:15 Stop Time: 08:30 Total Time Billed (hr/min): 75 Billed Treatment Time 1 visit- ADL 5 (75 min) co-treat with PT [id number], individual [id number], 0820- 0830 IAN RAMIREZ Mar 05, 2021 08:31
[2021-03-05] MEDS: SERTRALINE 100 MG (ZOLOFT) TAB PO SCH (09:28)
[2021-03-05] MEDS: SENNA W/DOCUSATE (SENOKOT S) TABLET PO SCH ×2 (09:33→09:37)
[2021-03-05] MEDS: busPIRone 5 MG (BUSPAR) TAB PO SCH (09:34)
[2021-03-05] MEDS: PANTOPRAZOLE 40 MG (PROTONIX) TAB PO SCH (09:34)
[2021-03-05] MEDS: ASPIRIN 81 MG CHEW (CHILDREN'S ASA) PO SCH (09:34)
[2021-03-05] MEDS: APIXABAN 5 MG (ELIQUIS) TABLET PO SCH (09:34)
[2021-03-05] MEDS: BACLOFEN 10 MG (LIORESAL) TAB PO SCH (09:35)
[2021-03-05] MEDS: polyethylene glycoL POWDER 17 GM (MIRALAX) PACK PO SCH (09:36)
[2021-03-05] MEDS: DOCUSATE SODIUM 100 MG (COLACE) CAP PO SCH (09:36)
[2021-03-05] MEDS: DICLOFENAC 1% GEL 100 GM (VOLTAREN) TUBE TOP SCH ×2 (09:37→12:50)
--- NOTE | 2021-03-05 09:52 | Therapy Team Discharge Summary ---
Therapy Discharge Summary Discharge Recommendations Date of Discharge Physical Therapy Patient came to rehab following a CVA. Upon evaluation patient was dependent for bed mobility and transfers and WC mobility. Patient has been performing bed mobility and transfer training, balance and endurance training, functional strengthening, WC training, and education. Patient has made poor progress and has not met any of her senior care goals. Now, patient performs bed mobility with max assist, supine <-> sit and sit <-> stand dependent, transfers and car transfer dependent, and can propel a manual WC 300' with max assist. Patient is discharging from this facility today and will be discharged from PT at this time. Occupational Therapy Decreased Activ Tolerance, Decreased Safety Aware, Decreased UE Strength, Impaired Coordination, Impaired Funct Balance, Impaired Self-Care Skills, Restricted Funct UE ROM PT Customer Engagement Specialist Goals Customer Engagement Specialist Goals PT Half-Way Goals Time Frame: Mar 20, 2021 Roll Left to Right (QC): 5 Sit to Lying (QC): 5 Lying-Sitting on Side/Bed(QC): 5 Sit to Stand (QC): 5 Chair/Htp-el-Gbony Xfer(QC): 5 Car Transfer (QC): 5 Does the Patient Walk: No and Walking Goal IS indicated Walk 10 feet (QC): 4 Walk 10ft-Uneven Surface(QC): 4 Walk 50ft with 2 Turns (QC): 4 Walk 150 ft (QC): 4 Does the Pt use WC or Scooter?: Yes Wheel 50 feet with 2 turns (QC: 5 1 Step (curb) (QC): 4 4 Steps (QC): 4 12 Steps (QC): 4 Picking up an Object (QC): 4 OT Half-Way Goals Customer Engagement Specialist Goals Time Frame: Mar 23, 2021 Eating (QC): 5 Oral Hygiene (QC): 5 Shower/Bathe Self (QC): 4 Upper Body Dressing (QC): 5 Lower Body Dressing (QC): 4 On/Off Footwear (QC): 4 Toileting Hygiene (QC): 4 Toilet/Commode Transfer (QC): 5 Additional Goals: 1-Demonstrate ADL Tasks, 2-Verbalize Understanding, 3-ImproveStrength/Kourtney 1=Demonstrate adherence to instructed precautions during ADL tasks. 2=Patient will verbalize/demonstrate understanding of assistive devices/modifications for ADL. 3=Patient will improve strength/tolerance for activity to enable patient to perform ADL's. Speech Half-Way Goals Customer Engagement Specialist Goals Patient will improve functional communication with verbal expression of wants/needs. Patient will maintain adequate nutrition/hydration via safe effective swallow function. ELAINE MINAYA PT Mar 05, 2021 09:52
[2021-03-05 14:28] VITALS: BP 133/64
--- NOTE | 2021-03-05 14:55 | Therapy Team Discharge Summary ---
Therapy Discharge Summary Discharge Recommendations Date of Discharge Occupational Therapy Pt admitted to [facility] s/p CVA. At OF, pt was independent with ADLs and functional mobility without AD. Upon initial evaluation, pt required supervision with eating and oral care, max A showering, max A upper body dressing, total assist lower body dressing, max A footwear and total assist toileting. OT txs focused on increasing BUE strength and activity tolerance, and increasing independence with ADLs and functional mobility. At discharge, pt required set up assistance with eating and oral care, max A showering, mod A upper body dressing, total assist lower body dressing, max A footwear and total assist toileting. Pt made functional progress, but only met LTGs for eating and oral care. Pt discharged to SNF, OT recommends continued therapy at SNF. Discharge from OT. Decreased Activ Tolerance, Decreased Safety Aware, Decreased UE Strength, Impaired Coordination, Impaired Funct Balance, Impaired Self-Care Skills, Restricted Funct UE ROM PT Nursing Home Goals Nursing Home Goals PT Calender Roll Operator Goals Time Frame: Mar 20, 2021 Roll Left to Right (QC): 5 Sit to Lying (QC): 5 Lying-Sitting on Side/Bed(QC): 5 Sit to Stand (QC): 5 Chair/Oys-ou-Sqblc Xfer(QC): 5 Car Transfer (QC): 5 Does the Patient Walk: No and Walking Goal IS indicated Walk 10 feet (QC): 4 Walk 10ft-Uneven Surface(QC): 4 Walk 50ft with 2 Turns (QC): 4 Walk 150 ft (QC): 4 Does the Pt use WC or Scooter?: Yes Wheel 50 feet with 2 turns (QC: 5 1 Step (curb) (QC): 4 4 Steps (QC): 4 12 Steps (QC): 4 Picking up an Object (QC): 4 OT Nursing Home Goals Calender Roll Operator Goals Time Frame: Mar 23, 2021 Eating (QC): 5 (met) Oral Hygiene (QC): 5 (met) Shower/Bathe Self (QC): 4 (not met) Upper Body Dressing (QC): 5 (not met) Lower Body Dressing (QC): 4 (not met) On/Off Footwear (QC): 4 (not met) Toileting Hygiene (QC): 4 (not met) Toilet/Commode Transfer (QC): 5 Additional Goals: 1-Demonstrate ADL Tasks, 2-Verbalize Understanding, 3- ImproveStrength/Kourtney 1=Demonstrate adherence to instructed precautions during ADL tasks. 2=Patient will verbalize/demonstrate understanding of assistive devices/modifications for ADL. 3=Patient will improve strength/tolerance for activity to enable patient to perform ADL's. Speech Calender Roll Operator Goals Calender Roll Operator Goals Patient will improve functional communication with verbal expression of wants/needs. Patient will maintain adequate nutrition/hydration via safe effective swallow function. FOZIA BEARD OT Mar 05, 2021 14:55
== END 2021-03-05 14:30 | DRG 57 ==
PROVIDERS: ADMIT Internal Medicine; ATTEND Internal Medicine
DX: I69.351 Hemiplegia and hemiparesis following cerebral infarction affecting right dominant side (principal); N39.0 Urinary tract infection, site not specified; I69.322 Dysarthria following cerebral infarction; I69.320 Aphasia following cerebral infarction; I69.391 Dysphagia following cerebral infarction; I69.392 Facial weakness following cerebral infarction; I69.315 Cognitive social or emotional deficit following cerebral infarction; R13.12 Dysphagia, oropharyngeal phase; Z20.822 Contact with and (suspected) exposure to COVID-19; R33.9 Retention of urine, unspecified; I48.0 Paroxysmal atrial fibrillation; I10 Essential (primary) hypertension; G47.33 Obstructive sleep apnea (adult) (pediatric); E78.5 Hyperlipidemia, unspecified; E78.00 Pure hypercholesterolemia, unspecified; K59.00 Constipation, unspecified; M79.7 Fibromyalgia; E66.9 Obesity, unspecified; Z68.35 Body mass index [BMI] 35.0-35.9, adult; B96.4 Proteus (mirabilis) (morganii) as the cause of diseases classified elsewhere; Z79.82 Long term (current) use of aspirin; Z88.6 Allergy status to analgesic agent; Z88.1 Allergy status to other antibiotic agents
CPT/HCPCS: 36415; 70450; 80053; 81000; 83605; 85025; 87077; 87088; 87186; 87636; 93005; 93306